=== PATIENT | female | born 1930 ===

== ENCOUNTER 2018-06-15 11:38 | Inpatient (IN) | payer MEDICARE, MEDICAID ==
--- NOTE | 2018-06-15 12:43 | C.PDOC ---
History Of Present Illness 88 y/o female is brought to ED from shelter by EMS after she was found unresponsive. Notes blood sugar was checked 3 times this morning and was given insulin. Upon arrival, blood sugar was found to be 25. Pt does not have history of diabetes. Otherwise, pt denies headache, dizziness, chest pain, shortness of breath, or any active physical complaints at this time. Time Seen by Provider: 06/15/18 12:17 Chief Complaint (Nursing): Medical Clearance History Per: Patient History/Exam Limitations: no limitations Recent travel outside of the [place]: No Additional History Per: EMS, [facility] Past Medical History Reviewed: Historical Data, Nursing Documentation, Vital Signs Vital Signs: Last Vital Signs Temp 97.7 F 06/15/18 11:52 Pulse 83 06/15/18 14:49 Resp 16 06/15/18 14:49 BP 146/60 06/15/18 14:49 Pulse Ox 92 L 06/15/18 15:30 - Medical History PMH: Anemia, Anxiety, HTN, Hyperlipidemia, Hypothyroidism Family History: States: Unknown Family Hx - Social History Hx Alcohol Use: No Hx Substance Use: No Review Of Systems Except As Marked, All Systems Reviewed And Found Negative. Constitutional: Negative for: Fever, Chills Cardiovascular: Negative for: Chest Pain, Palpitations Respiratory: Negative for: Shortness of Breath Gastrointestinal: Negative for: Nausea, Vomiting, Abdominal Pain Neurological: Negative for: Headache, Dizziness Physical Exam - Physical Exam Appears: Non-toxic, No Acute Distress Skin: Normal Color, Warm, Dry Head: Atraumatic, Normacephalic Eye(s): bilateral: Normal Inspection Oral Mucosa: Moist Neck: Normal ROM, Supple Cardiovascular: Rhythm Regular, No Murmur Respiratory: Normal Breath Sounds, No Rales, No Rhonchi, No Wheezing Gastrointestinal/Abdominal: Soft, No Tenderness Extremity: Normal ROM Neurological/Psych: Oriented x3, Normal Speech ED Course And Treatment - Laboratory Results Result Diagrams: 06/15/18 12:44 06/15/18 13:20 ECG: Interpreted By Me, Viewed By Me ECG Rhythm: Sinus Rhythm Rate From EC (bpm) O2 Sat by Pulse Oximetry: 92 (on RA) - Other Rad CXR X-Ray: Viewed By Me, Read By Radiologist Interpretation: FINDINGS: LUNGS: The lungs are well inflated and clear. PLEURA: No significant pleural effusion identified, no pneumothorax apparent. CARDIOVASCULAR: Normal. OSSEOUS STRUCTURES: No significant abnormalities. VISUALIZED UPPER ABDOMEN: Normal. OTHER FINDINGS: None. IMPRESSION: No active pulmonary disease. Progress Note: Urine: signs of UTI, Rocephin IV ordered, lactic acid negative, BP and HR are stable. Blood sugar decreased to 34 - D50 IV ordered. Case was d/ w pt's PMD who accepted patient to [facility] for observation. Medical Decision Making Medical Decision Making: Plan: Blood work Urinalysis EKG CXR Progress note: On re-eval, pt is resting comfortably, no acute distress. Pt denies any physical complaints at this time. Disposition - Disposition Disposition: HOSPITALIZED Disposition Time: 15:29 Condition: FAIR - Clinical Impression Clinical Impression: Hypoglycemia - PA / BOARD WRITER / Resident Statement MD/DO has reviewed & agrees with the documentation as recorded. - Scribe Statement The provider has reviewed the documentation as recorded by the Scribe Lukasz Marinelli All medical record entries made by the Scribe were at my direction and personally dictated by me. I have reviewed the chart and agree that the record accurately reflects my personal performance of the history, physical exam, medical decision making, and the department course for this patient. I have also personally directed, reviewed, and agree with the discharge instructions and disposition. Decision To Admit - Pt Status Changed To: Hospital Disposition Of: Observation - . Bed Request Type: Telemetry Admitting Physician: Andrew Marinelli Patient Diagnosis: Hypoglycemia
[2018-06-15 13:01] LABS: BASO # 0.1 K/uL (0.0-0.2); BASO % 0.7 % (0.0-2.0); EOS # 0.2 K/uL (0.0-0.7); EOS % 1.7 % (0.0-4.0); HEMOGLOBIN 11.6 g/dL (11.0-16.0); LYMPH # 1.6 K/uL (1.0-4.3); LYMPH % 16.4 % (20.0-40.0); MEAN CELL VOLUME 85.3 fL (81.0-99.0); MEAN CORPUSCULAR HEMOGLOBIN 28.1 pg (27.0-31.0); MEAN PLATELET VOLUME 8.4 fL (7.2-11.7); MONO # 0.5 K/uL (0.0-0.8); NEUT # 7.3 K/uL (1.8-7.0); NEUT % 76.2 % (50.0-75.0); RBC 4.11 Mil/uL (3.80-5.20); RED CELL DISTRIBUTION WIDTH 16.6 % (11.5-14.5); WHITE BLOOD COUNT 9.6 K/uL (4.8-10.8)
--- NOTE | 2018-06-15 13:19 | RAD ---
Date of service: 06/15/2018 HISTORY: found hypotensive, non diabetic COMPARISON: No prior. FINDINGS: LUNGS: The lungs are well inflated and clear. PLEURA: No significant pleural effusion identified, no pneumothorax apparent. CARDIOVASCULAR: Normal. OSSEOUS STRUCTURES: No significant abnormalities. VISUALIZED UPPER ABDOMEN: Normal. OTHER FINDINGS: None. IMPRESSION: No active pulmonary disease.
[2018-06-15 13:37] LABS: ALB/GLOB RATIO 1.1 (1.0-2.1)
[2018-06-15 13:49] LABS: CK-MB 0.68 ng/mL (0.0-3.38); TROPONIN I 0.025 ng/mL (0.00-0.120)
[2018-06-15 15:05] LABS: URINE BACTERIA RARE (<OCC); URINE BILIRUBIN NEGATIVE (NEGATIVE); URINE BLOOD NEGATIVE (NEGATIVE); URINE CLARITY Hazy (Clear); URINE COLOR Yellow (YELLOW); URINE GLUCOSE (UA) NORMAL (Normal); URINE LEUKOCYTE ESTERASE 3+ Leu/uL (Negative); URINE PROTEIN 2+ mg/dL (NEGATIVE); URINE UROBILINOGEN NORMAL mg/dL (0.2-1.0); WBC CLUMPS MOD /hpf
[2018-06-15] MEDS ORDERED: Dextrose 50% SYRINGE Inj (50 ml) ONE (16:49)
[2018-06-15] MEDS ORDERED: Dextrose 50% SYRINGE Inj (50 ml) IV STA ×2 (16:59→20:07)
[2018-06-15 17:06] LABS: VENOUS BLOOD GAS BASE EXCESS -11.9 mmol/L (0.0-2.0); VENOUS BLOOD GAS PCO2 26 mmHg (40-60); VENOUS BLOOD GAS PO2 45 mm/Hg (30-55)
--- NOTE | 2018-06-15 19:15 | CP.PCM.HP ---
Past Patient History - Past Social History Smoking Status: Never Smoked - CARDIAC Hx Hypertension: Yes - ENDOCRINE/METABOLIC Hx Hypothyroidism: Yes - HEMATOLOGICAL/ONCOLOGICAL Hx Anemia: Yes - GASTROINTESTINAL Hx Gastroesophageal Reflux: Yes - PSYCHIATRIC Hx Anxiety: Yes Hx Substance Use: No - SURGICAL HISTORY Hx Amputation: Yes (R AKA) - ANESTHESIA Hx Anesthesia: Yes Hx Anesthesia Reactions: No Meds Allergies/Adverse Reactions: Allergies Allergy/AdvReac Type Severity Reaction Status Date / Time No Known Allergies Allergy Verified 06/15/18 11:45 Results - Vital Signs Recent Vital Signs: Last Vital Signs Temp 98.2 F 06/15/18 18:55 Pulse 100 H 06/15/18 18:55 Resp 25 H 06/15/18 18:55 BP 166/54 H 06/15/18 18:55 Pulse Ox 100 06/15/18 18:55 - Labs Result Diagrams: 06/15/18 12:44 06/15/18 13:20 Labs: Laboratory Results - last 24 hr 06/15/18 06/15/18 06/15/18 11:43 12:44 13:01 WBC 9.6 RBC 4.11 Hgb 11.6 Hct 35.1 MCV 85.3 MCH 28.1 MCHC 33.0 RDW 16.6 H Plt Count 322 MPV 8.4 Neut % (Auto) 76.2 H Lymph % (Auto) 16.4 L [place] % (Auto) 5.0 Eos % (Auto) 1.7 Baso % (Auto) 0.7 Neut # (Auto) 7.3 H Lymph # (Auto) 1.6 [place] # (Auto) 0.5 Eos # (Auto) 0.2 Baso # (Auto) 0.1 pO2 VBG pH VBG pCO2 VBG HCO3 VBG Total CO2 VBG O2 Sat (Calc) VBG Base Excess VBG Potassium Glucose Lactate FiO2 Crit Value Called To Crit Value Called By Crit Value Read Back Blood Gas Notified Time Sodium Potassium Chloride Carbon Dioxide Anion Gap BUN Creatinine Est GFR ( Amer) Est GFR (Non-Af Amer) POC Glucose (mg/dL) 174 H 73 Random Glucose Calcium Total Bilirubin AST ALT Alkaline Phosphatase Total Creatine Kinase CK-MB (Mass) Troponin I Total Protein Albumin Globulin Albumin/Globulin Ratio Venous Blood Potassium Urine Color Urine Clarity Urine pH Ur Specific [place] Urine Protein Urine Glucose (UA) Urine Ketones Urine Blood Urine Nitrate Urine Bilirubin Urine Urobilinogen Ur Leukocyte Esterase Urine WBC (Auto) Urine RBC (Auto) Urine WBC Clumps (Auto) Urine Bacteria 06/15/18 06/15/18 06/15/18 13:20 14:16 14:38 WBC RBC Hgb Hct MCV MCH MCHC RDW Plt Count MPV Neut % (Auto) Lymph % (Auto) [place] % (Auto) Eos % (Auto) Baso % (Auto) Neut # (Auto) Lymph # (Auto) [place] # (Auto) Eos # (Auto) Baso # (Auto) pO2 VBG pH VBG pCO2 VBG HCO3 VBG Total CO2 VBG O2 Sat (Calc) VBG Base Excess VBG Potassium Glucose Lactate FiO2 Crit Value Called To Crit Value Called By Crit Value Read Back Blood Gas Notified Time Sodium 143 Potassium 5.1 Chloride 109 H Carbon Dioxide 21 L Anion Gap 18 BUN 36 H Creatinine 2.5 H Est GFR ( Amer) 22 Est GFR (Non-Af Amer) 18 POC Glucose (mg/dL) 63 L 69 Random Glucose 75 Calcium 9.0 Total Bilirubin 0.3 AST 30 ALT 21 Alkaline Phosphatase 82 Total Creatine Kinase 45 CK-MB (Mass) 0.68 Troponin I 0.0250 Total Protein 7.5 Albumin 4.0 Globulin 3.5 Albumin/Globulin Ratio 1.1 Venous Blood Potassium Urine Color Urine Clarity Urine pH Ur Specific [place] Urine Protein Urine Glucose (UA) Urine Ketones Urine Blood Urine Nitrate Urine Bilirubin Urine Urobilinogen Ur Leukocyte Esterase Urine WBC (Auto) Urine RBC (Auto) Urine WBC Clumps (Auto) Urine Bacteria 06/15/18 06/15/18 06/15/18 14:50 16:43 16:44 WBC RBC Hgb Hct MCV MCH MCHC RDW Plt Count MPV Neut % (Auto) Lymph % (Auto) [place] % (Auto) Eos % (Auto) Baso % (Auto) Neut # (Auto) Lymph # (Auto) [place] # (Auto) Eos # (Auto) Baso # (Auto) pO2 VBG pH VBG pCO2 VBG HCO3 VBG Total CO2 VBG O2 Sat (Calc) VBG Base Excess VBG Potassium Glucose Lactate FiO2 Crit Value Called To Crit Value Called By Crit Value Read Back Blood Gas Notified Time Sodium Potassium Chloride Carbon Dioxide Anion Gap BUN Creatinine Est GFR ( Amer) Est GFR (Non-Af Amer) POC Glucose (mg/dL) 32 L* 34 L* Random Glucose Calcium Total Bilirubin AST ALT Alkaline Phosphatase Total Creatine Kinase CK-MB (Mass) Troponin I Total Protein Albumin Globulin Albumin/Globulin Ratio Venous Blood Potassium Urine Color Yellow Urine Clarity Hazy Urine pH 6.0 Ur Specific [place] 1.011 Urine Protein 2+ H Urine Glucose (UA) Normal Urine Ketones Negative Urine Blood Negative Urine Nitrate Negative Urine Bilirubin Negative Urine Urobilinogen Normal Ur Leukocyte Esterase 3+ H Urine WBC (Auto) 952 H Urine RBC (Auto) 6 H Urine WBC Clumps (Auto) Mod H Urine Bacteria Rare 06/15/18 06/15/18 06/15/18 17:00 17:08 18:51 WBC RBC Hgb Hct MCV MCH MCHC RDW Plt Count MPV Neut % (Auto) Lymph % (Auto) [place] % (Auto) Eos % (Auto) Baso % (Auto) Neut # (Auto) Lymph # (Auto) [place] # (Auto) Eos # (Auto) Baso # (Auto) pO2 45 VBG pH 7.30 L VBG pCO2 26 L VBG HCO3 15.0 VBG Total CO2 13.6 L VBG O2 Sat (Calc) 87.6 H VBG Base Excess -11.9 L VBG Potassium 2.3 L* Glucose 75 Lactate 0.8 FiO2 24.0 Crit Value Called To Lina ramey Crit Value Called By Graham perkins logistics/shipper Crit Value Read Back Y Blood Gas Notified Time 1705 Sodium 150.0 H Potassium Chloride 126.0 H Carbon Dioxide Anion Gap BUN Creatinine Est GFR ( Amer) Est GFR (Non-Af Amer) POC Glucose (mg/dL) 109 43 L Random Glucose Calcium Total Bilirubin AST ALT Alkaline Phosphatase Total Creatine Kinase CK-MB (Mass) Troponin I Total Protein Albumin Globulin Albumin/Globulin Ratio Venous Blood Potassium 2.3 L* Urine Color Urine Clarity Urine pH Ur Specific [place] Urine Protein Urine Glucose (UA) Urine Ketones Urine Blood Urine Nitrate Urine Bilirubin Urine Urobilinogen Ur Leukocyte Esterase Urine WBC (Auto) Urine RBC (Auto) Urine WBC Clumps (Auto) Urine Bacteria 06/15/18 18:52 WBC RBC Hgb Hct MCV MCH MCHC RDW Plt Count MPV Neut % (Auto) Lymph % (Auto) [place] % (Auto) Eos % (Auto) Baso % (Auto) Neut # (Auto) Lymph # (Auto) [place] # (Auto) Eos # (Auto) Baso # (Auto) pO2 VBG pH VBG pCO2 VBG HCO3 VBG Total CO2 VBG O2 Sat (Calc) VBG Base Excess VBG Potassium Glucose Lactate FiO2 Crit Value Called To Crit Value Called By Crit Value Read Back Blood Gas Notified Time Sodium Potassium Chloride Carbon Dioxide Anion Gap BUN Creatinine Est GFR ( Amer) Est GFR (Non-Af Amer) POC Glucose (mg/dL) 46 L Random Glucose Calcium Total Bilirubin AST ALT Alkaline Phosphatase Total Creatine Kinase CK-MB (Mass) Troponin I Total Protein Albumin Globulin Albumin/Globulin Ratio Venous Blood Potassium Urine Color Urine Clarity Urine pH Ur Specific [place] Urine Protein Urine Glucose (UA) Urine Ketones Urine Blood Urine Nitrate Urine Bilirubin Urine Urobilinogen Ur Leukocyte Esterase Urine WBC (Auto) Urine RBC (Auto) Urine WBC Clumps (Auto) Urine Bacteria
--- NOTE | 2018-06-15 20:29 | PCM.PROC ---
Procedures Attestation:: I certify that I have explained the specified Operation(s) or Procedure(s), risks, benefits and reasonable alternatives to the Patient and/or other person responsible. The opportunity was given to ask questions and all questions answered - Central Line Placement Right Internal Jugular Triple Lumen Catheter Aseptic technique was employed throughout the procedure: Hand Hygiene done prior to procedure, Full sterile barriers (mask, hair cover, sterile gown, sterile gloves), Full body sterile drape, Chloraprep Antiseptic: 30 second prep for IJ or SC sites CVP Time Out Performed: Yes Pt. Placed on Pulse Ox Monitor: Yes Central Line Prep: Chlorhexidine-Alcohol Combination Local Anesthesia Used: Lidocaine 2% Amount of Anesthesia Used (mls): 3 Ultrasound Used for Placement: Yes Central Line Lumen Inserted: triple Central Line Length: 16 cm Post Procedure: Sutured in Place, Good Blood Return, All Ports Aspirated, Flushed, Capped, Sterile Dressing Applied Secured by: Securement device Post procedure dressing: Clear vapor permeable, Chlorhexidine disc (Biopatch) Post Procedure X-Ray: Yes Patient Tolerated Procedure: Well, No Complications Immediate Complications: None
--- NOTE | 2018-06-15 20:32 | CP.PCM.CON ---
<Wyatt Thompson - Last Filed: 06/15/18 20:29> History of Present Illness - History of Present Illness History of Present Illness: General Surgery Consult Note: [facility] Miranda 88[facility]. General surgery consulted for central line placement after multiple attempts done by nursing and medical attendings to obtain peripheral access failed. Review of Systems - Review of Systems Systems not reviewed;Unavailable: Acuity of Condition Past Patient History - Past Social History Smoking Status: Never Smoked - CARDIAC Hx Hypertension: Yes - ENDOCRINE/METABOLIC Hx Hypothyroidism: Yes - HEMATOLOGICAL/ONCOLOGICAL Hx Anemia: Yes - GASTROINTESTINAL Hx Gastroesophageal Reflux: Yes - PSYCHIATRIC Hx Anxiety: Yes Hx Substance Use: No - SURGICAL HISTORY Hx Amputation: Yes (R AKA) - ANESTHESIA Hx Anesthesia: Yes Hx Anesthesia Reactions: No Meds Allergies/Adverse Reactions: Allergies Allergy/AdvReac Type Severity Reaction Status Date / Time No Known Allergies Allergy Verified 06/15/18 11:45 - Medications Medications: Current Medications Amlodipine Besylate (Norvasc) 10 mg PO DAILY [facility] Gabapentin (Neurontin) 100 mg PO DAILY [facility] Hydralazine HCl (Apresoline) 50 mg PO Q8H [facility] Ceftriaxone Sodium 1 gm/ (Sodium Chloride) 100 mls @ 100 mls/hr IVPB DAILY [facility] PRN Reason: Protocol Levothyroxine Sodium (Synthroid) 50 mcg PO DAILY@0630 [facility] Metoprolol Tartrate (Lopressor) 50 mg PO BID [facility] Multivitamins (Hexavitamin) 1 tab PO DAILY [facility] Pantoprazole Sodium (Protonix Ec Tab) 40 mg PO DAILY [facility] Rosuvastatin Calcium (Crestor) 2.5 mg PO HS [facility] Physical Exam - Constitutional Appears: No Acute Distress - Head Exam Head Exam: NORMOCEPHALIC - Eye Exam Eye Exam: EOMI, Normal appearance - ENT Exam ENT Exam: Mucous Membranes Moist - Respiratory Exam Respiratory Exam: NORMAL BREATHING PATTERN - Cardiovascular Exam Cardiovascular Exam: +S1, +S2 - GI/Abdominal Exam GI & Abdominal Exam: Soft - Psychiatric Exam Psychiatric exam: Normal Mood - Skin Skin Exam: Dry, Normal Color, Warm Results - Vital Signs Recent Vital Signs: Last Vital Signs Temp 98.2 F 06/15/18 18:55 Pulse 100 H 06/15/18 18:55 Resp 25 H 06/15/18 18:55 BP 166/54 H 06/15/18 18:55 Pulse Ox 100 06/15/18 18:55 - Labs Result Diagrams: 06/15/18 12:44 06/15/18 13:20 Labs: Laboratory Results - last 24 hr 06/15/18 06/15/18 06/15/18 11:43 12:44 13:01 WBC 9.6 RBC 4.11 Hgb 11.6 Hct 35.1 MCV 85.3 MCH 28.1 MCHC 33.0 RDW 16.6 H Plt Count 322 MPV 8.4 Neut % (Auto) 76.2 H Lymph % (Auto) 16.4 L [place] % (Auto) 5.0 Eos % (Auto) 1.7 Baso % (Auto) 0.7 Neut # (Auto) 7.3 H Lymph # (Auto) 1.6 [place] # (Auto) 0.5 Eos # (Auto) 0.2 Baso # (Auto) 0.1 pO2 VBG pH VBG pCO2 VBG HCO3 VBG Total CO2 VBG O2 Sat (Calc) VBG Base Excess VBG Potassium Glucose Lactate FiO2 Crit Value Called To Crit Value Called By Crit Value Read Back Blood Gas Notified Time Sodium Potassium Chloride Carbon Dioxide Anion Gap BUN Creatinine Est GFR ( Amer) Est GFR (Non-Af Amer) POC Glucose (mg/dL) 174 H 73 Random Glucose Calcium Total Bilirubin AST ALT Alkaline Phosphatase Total Creatine Kinase CK-MB (Mass) Troponin I Total Protein Albumin Globulin Albumin/Globulin Ratio Venous Blood Potassium Urine Color Urine Clarity Urine pH Ur Specific [place] Urine Protein Urine Glucose (UA) Urine Ketones Urine Blood Urine Nitrate Urine Bilirubin Urine Urobilinogen Ur Leukocyte Esterase Urine WBC (Auto) Urine RBC (Auto) Urine WBC Clumps (Auto) Urine Bacteria 06/15/18 06/15/18 06/15/18 13:20 14:16 14:38 WBC RBC Hgb Hct MCV MCH MCHC RDW Plt Count MPV Neut % (Auto) Lymph % (Auto) [place] % (Auto) Eos % (Auto) Baso % (Auto) Neut # (Auto) Lymph # (Auto) [place] # (Auto) Eos # (Auto) Baso # (Auto) pO2 VBG pH VBG pCO2 VBG HCO3 VBG Total CO2 VBG O2 Sat (Calc) VBG Base Excess VBG Potassium Glucose Lactate FiO2 Crit Value Called To Crit Value Called By Crit Value Read Back Blood Gas Notified Time Sodium 143 Potassium 5.1 Chloride 109 H Carbon Dioxide 21 L Anion Gap 18 BUN 36 H Creatinine 2.5 H Est GFR ( Amer) 22 Est GFR (Non-Af Amer) 18 POC Glucose (mg/dL) 63 L 69 Random Glucose 75 Calcium 9.0 Total Bilirubin 0.3 AST 30 ALT 21 Alkaline Phosphatase 82 Total Creatine Kinase 45 CK-MB (Mass) 0.68 Troponin I 0.0250 Total Protein 7.5 Albumin 4.0 Globulin 3.5 Albumin/Globulin Ratio 1.1 Venous Blood Potassium Urine Color Urine Clarity Urine pH Ur Specific [place] Urine Protein Urine Glucose (UA) Urine Ketones Urine Blood Urine Nitrate Urine Bilirubin Urine Urobilinogen Ur Leukocyte Esterase Urine WBC (Auto) Urine RBC (Auto) Urine WBC Clumps (Auto) Urine Bacteria 06/15/18 06/15/18 06/15/18 14:50 16:43 16:44 WBC RBC Hgb Hct MCV MCH MCHC RDW Plt Count MPV Neut % (Auto) Lymph % (Auto) [place] % (Auto) Eos % (Auto) Baso % (Auto) Neut # (Auto) Lymph # (Auto) [place] # (Auto) Eos # (Auto) Baso # (Auto) pO2 VBG pH VBG pCO2 VBG HCO3 VBG Total CO2 VBG O2 Sat (Calc) VBG Base Excess VBG Potassium Glucose Lactate FiO2 Crit Value Called To Crit Value Called By Crit Value Read Back Blood Gas Notified Time Sodium Potassium Chloride Carbon Dioxide Anion Gap BUN Creatinine Est GFR ( Amer) Est GFR (Non-Af Amer) POC Glucose (mg/dL) 32 L* 34 L* Random Glucose Calcium Total Bilirubin AST ALT Alkaline Phosphatase Total Creatine Kinase CK-MB (Mass) Troponin I Total Protein Albumin Globulin Albumin/Globulin Ratio Venous Blood Potassium Urine Color Yellow Urine Clarity Hazy Urine pH 6.0 Ur Specific [place] 1.011 Urine Protein 2+ H Urine Glucose (UA) Normal Urine Ketones Negative Urine Blood Negative Urine Nitrate Negative Urine Bilirubin Negative Urine Urobilinogen Normal Ur Leukocyte Esterase 3+ H Urine WBC (Auto) 952 H Urine RBC (Auto) 6 H Urine WBC Clumps (Auto) Mod H Urine Bacteria Rare 06/15/18 06/15/18 06/15/18 17:00 17:08 18:51 WBC RBC Hgb Hct MCV MCH MCHC RDW Plt Count MPV Neut % (Auto) Lymph % (Auto) [place] % (Auto) Eos % (Auto) Baso % (Auto) Neut # (Auto) Lymph # (Auto) [place] # (Auto) Eos # (Auto) Baso # (Auto) pO2 45 VBG pH 7.30 L VBG pCO2 26 L VBG HCO3 15.0 VBG Total CO2 13.6 L VBG O2 Sat (Calc) 87.6 H VBG Base Excess -11.9 L VBG Potassium 2.3 L* Glucose 75 Lactate 0.8 FiO2 24.0 Crit Value Called To Lina ramey Crit Value Called By Graham perkins pipe chipper Crit Value Read Back Y Blood Gas Notified Time 1705 Sodium 150.0 H Potassium Chloride 126.0 H Carbon Dioxide Anion Gap BUN Creatinine Est GFR ( Amer) Est GFR (Non-Af Amer) POC Glucose (mg/dL) 109 43 L Random Glucose Calcium Total Bilirubin AST ALT Alkaline Phosphatase Total Creatine Kinase CK-MB (Mass) Troponin I Total Protein Albumin Globulin Albumin/Globulin Ratio Venous Blood Potassium 2.3 L* Urine Color Urine Clarity Urine pH Ur Specific [place] Urine Protein Urine Glucose (UA) Urine Ketones Urine Blood Urine Nitrate Urine Bilirubin Urine Urobilinogen Ur Leukocyte Esterase Urine WBC (Auto) Urine RBC (Auto) Urine WBC Clumps (Auto) Urine Bacteria 06/15/18 06/15/18 06/15/18 18:52 19:51 19:55 WBC RBC Hgb Hct MCV MCH MCHC RDW Plt Count MPV Neut % (Auto) Lymph % (Auto) [place] % (Auto) Eos % (Auto) Baso % (Auto) Neut # (Auto) Lymph # (Auto) [place] # (Auto) Eos # (Auto) Baso # (Auto) pO2 VBG pH VBG pCO2 VBG HCO3 VBG Total CO2 VBG O2 Sat (Calc) VBG Base Excess VBG Potassium Glucose Lactate FiO2 Crit Value Called To Crit Value Called By Crit Value Read Back Blood Gas Notified Time Sodium Potassium Chloride Carbon Dioxide Anion Gap BUN Creatinine Est GFR ( Amer) Est GFR (Non-Af Amer) POC Glucose (mg/dL) 46 L 46 L 38 L* Random Glucose Calcium Total Bilirubin AST ALT Alkaline Phosphatase Total Creatine Kinase CK-MB (Mass) Troponin I Total Protein Albumin Globulin Albumin/Globulin Ratio Venous Blood Potassium Urine Color Urine Clarity Urine pH Ur Specific [place] Urine Protein Urine Glucose (UA) Urine Ketones Urine Blood Urine Nitrate Urine Bilirubin Urine Urobilinogen Ur Leukocyte Esterase Urine WBC (Auto) Urine RBC (Auto) Urine WBC Clumps (Auto) Urine Bacteria Assessment & Plan - Assessment and Plan (Free Text) Assessment: 88F with hypoglycemia w/ multiple failed attempts at peripheral vascular access Plan: Insertion of right IJ TLC F/u CXR pt tolerated procedure well D/w Dr. Ruben Esquivle PGY3 <Arun Miranda B - Last Filed: 06/17/18 14:18> Meds - Medications Medications: Current Medications Amlodipine Besylate (Norvasc) 10 mg PO DAILY [facility] Last Admin: 06/17/18 09:30 Dose: 10 mg Gabapentin (Neurontin) 100 mg PO DAILY [facility] Last Admin: 06/17/18 09:30 Dose: 100 mg Hydralazine HCl (Apresoline) 50 mg PO Q8H [facility] Last Admin: 06/17/18 02:28 Dose: 50 mg Ceftriaxone Sodium 1 gm/ (Sodium Chloride) 100 mls @ 100 mls/hr IVPB DAILY [facility] PRN Reason: Protocol Last Admin: 06/17/18 09:36 Dose: 100 mls/hr Dextrose (Dextrose 10% In Water) 1,000 mls @ 50 mls/hr IV .Q20H [facility] Last Admin: 06/17/18 03:16 Dose: Not Given Levothyroxine Sodium (Synthroid) 50 mcg PO DAILY@0630 [facility] Last Admin: 06/17/18 05:29 Dose: 50 mcg Metoprolol Tartrate (Lopressor) 50 mg PO BID [facility] Last Admin: 06/17/18 09:30 Dose: 50 mg Multivitamins (Hexavitamin) 1 tab PO DAILY [facility] Last Admin: 06/17/18 09:30 Dose: 1 tab Pantoprazole Sodium (Protonix Ec Tab) 40 mg PO DAILY [facility] Last Admin: 06/17/18 09:30 Dose: 40 mg Rosuvastatin Calcium (Crestor) 2.5 mg PO HS [facility] Last Admin: 06/16/18 22:23 Dose: 2.5 mg Results - Vital Signs Recent Vital Signs: Last Vital Signs Temp 97.9 F 06/16/18 23:32 Pulse 76 06/17/18 12:11 Resp 20 06/16/18 23:32 BP 133/57 L 06/16/18 23:32 Pulse Ox 96 06/16/18 23:32 - Labs Result Diagrams: 06/15/18 12:44 06/17/18 07:57 Labs: Laboratory Results - last 24 hr 06/16/18 06/16/18 06/16/18 14:24 16:31 18:41 Sodium Potassium Chloride Carbon Dioxide Anion Gap BUN Creatinine Est GFR ( Amer) Est GFR (Non-Af Amer) POC Glucose (mg/dL) 95 110 162 H Random Glucose Hemoglobin A1c Calcium Magnesium Total Bilirubin AST ALT Alkaline Phosphatase Total Protein Albumin Globulin Albumin/Globulin Ratio Thyroxine (T4) TSH 3rd Generation Cortisol AM Sample 06/16/18 06/17/18 06/17/18 20:37 00:03 04:00 Sodium Potassium Chloride Carbon Dioxide Anion Gap BUN Creatinine Est GFR ( Amer) Est GFR (Non-Af Amer) POC Glucose (mg/dL) 124 H 112 H 134 H Random Glucose Hemoglobin A1c Calcium Magnesium Total Bilirubin AST ALT Alkaline Phosphatase Total Protein Albumin Globulin Albumin/Globulin Ratio Thyroxine (T4) TSH 3rd Generation Cortisol AM Sample 06/17/18 06/17/18 06/17/18 06:20 07:57 07:57 Sodium 129 L Potassium 5.0 Chloride 97 L Carbon Dioxide 23 Anion Gap 15 BUN 21 H Creatinine 2.0 H Est GFR ( Amer) 28 Est GFR (Non-Af Amer) 24 POC Glucose (mg/dL) 125 H Random Glucose 119 H Hemoglobin A1c 5.7 Calcium 8.3 L Magnesium 1.5 L Total Bilirubin 0.3 AST 50 H D ALT 38 Alkaline Phosphatase 85 Total Protein 6.5 Albumin 3.1 L D Globulin 3.4 Albumin/Globulin Ratio 0.9 L Thyroxine (T4) 7.79 TSH 3rd Generation 4.52 Cortisol AM Sample 06/17/18 06/17/18 06/17/18 07:57 08:10 11:28 Sodium Potassium Chloride Carbon Dioxide Anion Gap BUN Creatinine Est GFR ( Amer) Est GFR (Non-Af Amer) POC Glucose (mg/dL) 129 H 132 H Random Glucose Hemoglobin A1c Calcium Magnesium Total Bilirubin AST ALT Alkaline Phosphatase Total Protein Albumin Globulin Albumin/Globulin Ratio Thyroxine (T4) TSH 3rd Generation Cortisol AM Sample 5.2 Attending/Attestation - Attestation I have personally seen and examined this patient.: Yes I have fully participated in the care of the patient.: Yes I have reviewed all pertinent clinical information: Yes Notes (Text): Pt was seen and examined at bedside Agree with above note and assessment Pt from [place] with Hypoglycemia and unable to get IV access Labs and radiology reviewed Ass: Unable to get IV acces Plan : Central line placement Consent Plan d.w pt and ED attending in detail Risk and benefit explained in detail.
[2018-06-15] MEDS: Rosuvastatin Calcium 2.5 mg Tab PO SCH (22:33)
[2018-06-16] MEDS: Levothyroxine 50 MCG TAB PO SCH (05:41)
--- NOTE | 2018-06-16 08:30 | RAD ---
Date of service: 06/15/2018 HISTORY: s/p TLC insertion COMPARISON: Chest radiograph performed approximately 7 hours prior FINDINGS: LUNGS: No active pulmonary disease. PLEURA: No significant pleural effusion identified, no pneumothorax apparent. CARDIOVASCULAR: Atherosclerotic aortic calcifications. Cardiomediastinal silhouette unchanged. OSSEOUS STRUCTURES: Unchanged. VISUALIZED UPPER ABDOMEN: Normal. OTHER FINDINGS: Right internal jugular access central venous catheter with tip at the cavoatrial junction. IMPRESSION: Right internal jugular access central venous catheter in satisfactory position. No appreciable pneumothorax. No other significant interval change.
[2018-06-16] MEDS ORDERED: Pneumococcal 23-Valent Vaccine SC ONE (10:00)
--- NOTE | 2018-06-16 10:10 | CT ---
Date of service: 06/16/2018 PROCEDURE: CT HEAD WITHOUT CONTRAST. HISTORY: AMS COMPARISON: None available. TECHNIQUE: Axial computed tomography images were obtained through the head/brain without intravenous contrast. Radiation dose: Total exam DLP = 1138.5 mGy-cm. This CT exam was performed using one or more of the following dose reduction techniques: Automated exposure control, adjustment of the mA and/or kV according to patient size, and/or use of iterative reconstruction technique. FINDINGS: HEMORRHAGE: No intracranial hemorrhage. BRAIN: No mass effect or edema. Atrophy. Chronic microvascular ischemic changes. Right basal ganglia lacunar infarction. VENTRICLES: Unremarkable. No hydrocephalus. CALVARIUM: Unremarkable. PARANASAL SINUSES: Prior right sinus surgery. MASTOID AIR CELLS: Unremarkable as visualized. No inflammatory changes. OTHER FINDINGS: None. IMPRESSION: No acute intracranial pathology. Age-related changes.
[2018-06-16] MEDS: Multiple Vitamins Tab PO SCH (10:18)
[2018-06-16] MEDS: Pantoprazole 40 mg EC Tab PO SCH (10:18)
--- NOTE | 2018-06-16 16:09 | CP.PCM.PN ---
Subjective - Date & Time of Evaluation Date of Evaluation: 06/23/18 Time of Evaluation: 12:00 - Subjective Subjective: clinically same Objective - Vital Signs/Intake and Output Vital Signs (last 24 hours): Temp Pulse Resp BP Pulse Ox 98.3 F 85 20 129/66 98 06/16/18 07:43 06/16/18 11:58 06/16/18 07:43 06/16/18 11:58 06/16/18 07:43 Intake and Output: 06/16/18 06/16/18 06:59 18:59 Intake Total 700 Output Total 300 275 Balance 400 -275 - Medications Medications: Current Medications Amlodipine Besylate (Norvasc) 10 mg PO DAILY [facility] Last Admin: 06/16/18 10:19 Dose: 10 mg Gabapentin (Neurontin) 100 mg PO DAILY [facility] Last Admin: 06/16/18 10:18 Dose: 100 mg Hydralazine HCl (Apresoline) 50 mg PO Q8H [facility] Last Admin: 06/16/18 11:58 Dose: 50 mg Ceftriaxone Sodium 1 gm/ (Sodium Chloride) 100 mls @ 100 mls/hr IVPB DAILY [facility] PRN Reason: Protocol Last Admin: 06/16/18 10:20 Dose: 100 mls/hr Dextrose (Dextrose 10% In Water) 1,000 mls @ 50 mls/hr IV .Q20H [facility] Last Admin: 06/16/18 07:45 Dose: 50 mls/hr Levothyroxine Sodium (Synthroid) 50 mcg PO DAILY@0630 [facility] Last Admin: 06/16/18 05:41 Dose: 50 mcg Metoprolol Tartrate (Lopressor) 50 mg PO BID [facility] Last Admin: 06/16/18 10:19 Dose: 50 mg Multivitamins (Hexavitamin) 1 tab PO DAILY [facility] Last Admin: 06/16/18 10:18 Dose: 1 tab Pantoprazole Sodium (Protonix Ec Tab) 40 mg PO DAILY [facility] Last Admin: 06/16/18 10:18 Dose: 40 mg Rosuvastatin Calcium (Crestor) 2.5 mg PO HS [facility] Last Admin: 06/15/18 22:33 Dose: 2.5 mg - Labs Labs: 06/15/18 12:44 06/16/18 12:20 - Constitutional Appears: Well - Head Exam Head Exam: ATRAUMATIC, NORMAL INSPECTION, NORMOCEPHALIC - Eye Exam Eye Exam: EOMI, Normal appearance, PERRL Pupil Exam: NORMAL ACCOMODATION, PERRL - ENT Exam ENT Exam: Mucous Membranes Moist, Normal Exam - Neck Exam Neck Exam: Full ROM, Normal Inspection. absent: Lymphadenopathy - Respiratory Exam Respiratory Exam: Decreased Breath Sounds - Cardiovascular Exam Cardiovascular Exam: REGULAR RHYTHM, +S1, +S2 - GI/Abdominal Exam GI & Abdominal Exam: Soft, Diminished Bowel Sounds - Rectal Exam Rectal Exam: Deferred
--- NOTE | 2018-06-16 22:06 | CON ---
DATE: 06/16/2018 ENDOCRINOLOGY CONSULTATION LOCATION: Room 553. HISTORY OF PRESENT ILLNESS: This is an 88-year-old female with known history of hypertension and dyslipidemia with underlying hypothyroidism who was transferred here from the retirement after being found unresponsive by the nursing staff with supervening marked symptomatic hypoglycemia and glucose levels here with 25 mg/dL in the emergency room as noted. She has no known history of any diabetic condition or any intake of any oral hypoglycemic therapy as noted. She was apparently given insulin therapy in the retirement as per the initial ER note, but we will verify this information accordingly. PAST MEDICAL HISTORY: As mentioned above, history of hypertensive cardiovascular disease, dyslipidemia, history of hypothyroidism, history of generalized anxiety with psychotropic medication. There is also history of chronic anemia as noted with underlying diffuse osteoarthritis. FAMILY HISTORY: Positive for hypertension and heart disease. SOCIAL HISTORY: The patient has a supportive family. No known substance use. REVIEW OF SYSTEMS: Not possible at this time, but the chart has been reviewed in detail. PHYSICAL EXAMINATION: GENERAL: This is an average-built female, in no apparent distress. VITAL SIGNS: With a blood pressure of 140/80, pulse of 100 beats per minute and regular, temperature 98, respirations 20. Height is 5 feet 5 inches. Weight is 200 pounds. HEENT: Head is normocephalic. Eyes are anicteric with pink conjunctivae. Funduscopy not possible at this time. Ears, nose, and throat otherwise normal. NECK: Supple. Thyroid gland is normal in size. No carotid bruits or cervical adenopathy. CARDIOPULMONARY: Adynamic precordium. S1, S2 are rapid and regular. LUNGS: Clear to auscultation. ABDOMEN: Flat, soft with positive bowel sounds. EXTREMITIES: No peripheral edema. Pulses are +2 bilaterally. LABORATORY DATA: Her chemistries showed a BUN of 36, sodium 143, potassium 5.1, chloride 109, CO2 of 21, glucose 75, creatinine 2.5. Her glucose levels have ranged from 32 to 43 and 46 mg/dL. The latest glucose this morning dropped to 58 with a repeat level of 103 mg/dL. ASSESSMENT: This is an 88-year-old female with symptomatic hypoglycemia, presenting here with a brief bout of loss of consciousness with associated neuroglycopenic and hyperadrenergic manifestation for the same and the etiology of which has to be ascertaining at this time. There is no history of diabetic condition or any intake of diabetic medications for the same. We have to exclude also any underlying autoimmune endocrinopathy contributing to the hypoglycemia versus a nutritional factor also contributing to the same. It is quite unlikely that we are dealing with insulinoma or any insulin excess syndrome considering her advanced age at this time. PLAN OF MANAGEMENT: We will obtain a comprehensive hormonal profile to include a serum insulin and C-peptide level with a repeat thyroid study and will titrate her dose regimen accordingly. We will also include a serum cortisol of ACTH level as ordered. We will continue the D10W dextrose infusion as given, and we will observe her glycemic profile accordingly. We will follow. Karime Patton MD
[2018-06-16] MEDS: Rosuvastatin Calcium 2.5 mg Tab PO SCH (22:23)
--- NOTE | 2018-06-17 02:39 | CON ---
DATE: 06/16/2018 REFERRING PHYSICIAN: Dr. Nino Marinelli. REASON FOR CONSULTATION: Change in mental state. HISTORY: The patient is an 88 years old female brought from alf by ambulance, the patient was found unresponsive after was given insulin although the patient is nondiabetic, the patient blood sugar was 25. The patient is unable to give a detailed history, but patient denies headache, dizziness, photophobia, weakness, nausea, vomiting. The patient is currently admitted to the hospital, has no new complaints. PAST MEDICAL HISTORY: Hypertension, anxiety, hyperlipidemia, anemia and hypothyroidism. FAMILY HISTORY: Noncontributory. MEDICATIONS: Hydralazine, ceftriaxone, rosuvastatin, Dextrose, multivitamin, metoprolol, gabapentin, amlodipine. REVIEW OF SYSTEMS: As per H and P and ER notes, reviewed. PHYSICAL EXAMINATION: VITAL SIGNS: Blood pressure 146/60, pulse 85, respiration 16, temperature 97.7. NEUROLOGIC: Mental state, the patient is alert, awake, partially oriented to person and place, disoriented to time, (02:21) thought processing. Decreased attention span, short term memory, able to follow one-step commands, unable to follow two-step commands. Cranial nerves, pupils slightly asymmetrical on the right, 2 mm nonreactive status post bilateral cataract surgery. No facial palsy. No nystagmus, no double vision, no gaze preference, no field defect or threat. Motor, normal tone in upper and lower extremities. The patient is able to lift upper extremities against gravity and lift upper extremity against gravity on resistance, right below knee amputation. Deep tendon reflexes 1 in upper extremities, absent at the left knee and ankles with plantar flexion. Sensory, symmetrical, the patient withdraws her extremities symmetrically and upper extremity responds to noxious stimuli and left lower extremity. The patient is fully cooperative for neurologic examination. The patient able to comprehend finger to nose. IMAGING: The patient had a CAT scan of the brain. I have reviewed the CAT scan, CAT scan consist with severe cerebellar atrophy and generalized mild atrophy consistent with age and small old lacunar infract in the right subcortical area. LABORATORY DATA: White blood cells 9.6, hemoglobin 11.6, hematocrit 35.1, platelets 322. Sodium 143, potassium 5.1, chloride 109, CO2 21, BUN 36, creatinine 2.5 and glucose 75. IMPRESSION: Worsening mental state probably the patient has baseline dementia superimposed by encephalopathy secondary to metabolic etiology and most likely hypoglycemia. Neuro bass, no further workup recommended, probably this is patient's baseline. Neuro bass, I would not consider further workup. The patient's exam is relatively symmetrical and no focal deficit. I would sign off the case if needed, Dr. Chapin is covering the patient on Monday. Thank you for the consultation. Michael Phillips MD
[2018-06-17] MEDS: Levothyroxine 50 MCG TAB PO SCH (05:29)
[2018-06-17 08:29] LABS: ALB/GLOB RATIO 0.9 (1.0-2.1); ALBUMIN 3.1 g/dL (3.5-5.0); CALCIUM 8.3 mg/dl (8.6-10.4)
[2018-06-17 08:43] LABS: T4 7.79 ug/dL (5.5-11.0)
[2018-06-17] MEDS: Pantoprazole 40 mg EC Tab PO SCH (09:30)
[2018-06-17] MEDS: Multiple Vitamins Tab PO SCH (09:30)
--- NOTE | 2018-06-17 14:12 | CP.PCM.PN ---
Subjective - Date & Time of Evaluation Date of Evaluation: 06/17/18 Time of Evaluation: 12:00 - Subjective Subjective: clinically same Objective - Vital Signs/Intake and Output Vital Signs (last 24 hours): Temp Pulse Resp BP Pulse Ox 97.9 F 76 20 133/57 L 96 06/16/18 23:32 06/17/18 12:11 06/16/18 23:32 06/16/18 23:32 06/16/18 23:32 Intake and Output: 06/17/18 06/17/18 06:59 18:59 Intake Total 500 Output Total 301 Balance 199 - Medications Medications: Current Medications Amlodipine Besylate (Norvasc) 10 mg PO DAILY [facility] Last Admin: 06/17/18 09:30 Dose: 10 mg Gabapentin (Neurontin) 100 mg PO DAILY [facility] Last Admin: 06/17/18 09:30 Dose: 100 mg Hydralazine HCl (Apresoline) 50 mg PO Q8H [facility] Last Admin: 06/17/18 02:28 Dose: 50 mg Ceftriaxone Sodium 1 gm/ (Sodium Chloride) 100 mls @ 100 mls/hr IVPB DAILY [facility] PRN Reason: Protocol Last Admin: 06/17/18 09:36 Dose: 100 mls/hr Dextrose (Dextrose 10% In Water) 1,000 mls @ 50 mls/hr IV .Q20H [facility] Last Admin: 06/17/18 03:16 Dose: Not Given Levothyroxine Sodium (Synthroid) 50 mcg PO DAILY@0630 [facility] Last Admin: 06/17/18 05:29 Dose: 50 mcg Metoprolol Tartrate (Lopressor) 50 mg PO BID [facility] Last Admin: 06/17/18 09:30 Dose: 50 mg Multivitamins (Hexavitamin) 1 tab PO DAILY [facility] Last Admin: 06/17/18 09:30 Dose: 1 tab Pantoprazole Sodium (Protonix Ec Tab) 40 mg PO DAILY [facility] Last Admin: 06/17/18 09:30 Dose: 40 mg Rosuvastatin Calcium (Crestor) 2.5 mg PO HS [facility] Last Admin: 06/16/18 22:23 Dose: 2.5 mg - Labs Labs: 06/15/18 12:44 06/17/18 07:57 - Constitutional Appears: Well - Head Exam Head Exam: ATRAUMATIC, NORMAL INSPECTION, NORMOCEPHALIC - Eye Exam Eye Exam: EOMI, Normal appearance, PERRL Pupil Exam: NORMAL ACCOMODATION, PERRL - ENT Exam ENT Exam: Mucous Membranes Moist, Normal Exam - Neck Exam Neck Exam: Full ROM, Normal Inspection. absent: Lymphadenopathy - Respiratory Exam Respiratory Exam: Decreased Breath Sounds - Cardiovascular Exam Cardiovascular Exam: REGULAR RHYTHM, +S1, +S2 - GI/Abdominal Exam GI & Abdominal Exam: Soft, Diminished Bowel Sounds - Rectal Exam Rectal Exam: Deferred Assessment and Plan - Assessment and Plan (Free Text) Plan: Patient's blood sugar is better patient wants to go home to the rehab tomorrow TSH is 4.52 cortisol is 5.2 Patient is much better
--- NOTE | 2018-06-17 15:27 | PN ---
DATE: 06/17/2018 ENDO FOLLOWUP NOTE LOCATION: In room 553. SUBJECTIVE: This is an 88-year-old female, who was found unresponsive at the longterm with symptomatic hypoglycemia and associated neuroglycopenic and hyperadrenergic manifestation for the same. Her glycemic levels overnight have improved and the glucose values have ranged from 125 to 134 and 129 mg/dL. Her latest chemistries shows a BUN of 21, sodium 129, potassium 5, chloride 97, CO2 23, glucose 119, and creatinine 2. Her repeat thyroid studies shows a TSH of 4.52, with a T4 of 7.79. ASSESSMENT AND PLAN: So at this time, we will continue the levothyroxine given as 50 mcg once daily as ordered. We will also continue the fingerstick glucose testing with no need for any insulin coverage at this time. If hyperglycemic levels supervene, then we will start her on a very low-dose short-acting oral hypoglycemic therapy as indicated. At this time, no indications for now for any kind of oral hypoglycemic therapy. We will obtain serial chemistries and supplement accordingly as needed. We will follow. Karime Patton MD
[2018-06-17] MEDS: Rosuvastatin Calcium 2.5 mg Tab PO SCH (21:32)
[2018-06-17] MEDS: Dextrose 5%/0.45% NS 1,000 ML IV SCH (23:54)
[2018-06-18] MEDS: Levothyroxine 50 MCG TAB PO SCH (05:50)
[2018-06-18] MEDS: Pantoprazole 40 mg EC Tab PO SCH (09:09)
[2018-06-18] MEDS: Multiple Vitamins Tab PO SCH (09:09)
--- NOTE | 2018-06-18 15:24 | CP.PCM.PN ---
Subjective - Date & Time of Evaluation Date of Evaluation: 06/18/18 Time of Evaluation: 11:30 - Subjective Subjective: clinically same Objective - Vital Signs/Intake and Output Vital Signs (last 24 hours): Temp Pulse Resp BP Pulse Ox 98.3 F 84 18 130/59 L 97 06/18/18 08:20 06/18/18 08:20 06/18/18 08:20 06/18/18 08:20 06/18/18 08:20 Intake and Output: 06/18/18 06/18/18 06:59 18:59 Intake Total 550 Balance 550 - Medications Medications: Current Medications Amlodipine Besylate (Norvasc) 10 mg PO DAILY [facility] Last Admin: 06/18/18 09:09 Dose: 10 mg Gabapentin (Neurontin) 100 mg PO DAILY [facility] Last Admin: 06/18/18 09:09 Dose: 100 mg Hydralazine HCl (Apresoline) 50 mg PO Q8H [facility] Last Admin: 06/18/18 10:22 Dose: 50 mg Ceftriaxone Sodium 1 gm/ (Sodium Chloride) 100 mls @ 100 mls/hr IVPB DAILY [facility] PRN Reason: Protocol Last Admin: 06/18/18 10:22 Dose: 100 mls/hr Dextrose/Sodium Chloride (Dextrose 5%/0.45% Ns 1000 Ml) 1,000 mls @ 60 mls/hr IV .[id number] [facility] Last Admin: 06/17/18 23:54 Dose: 60 mls/hr Levothyroxine Sodium (Synthroid) 50 mcg PO DAILY@0630 [facility] Last Admin: 06/18/18 05:50 Dose: 50 mcg Metoprolol Tartrate (Lopressor) 50 mg PO BID [facility] Last Admin: 06/18/18 09:09 Dose: 50 mg Multivitamins (Hexavitamin) 1 tab PO DAILY [facility] Last Admin: 06/18/18 09:09 Dose: 1 tab Pantoprazole Sodium (Protonix Ec Tab) 40 mg PO DAILY [facility] Last Admin: 06/18/18 09:09 Dose: 40 mg Rosuvastatin Calcium (Crestor) 2.5 mg PO HS [facility] Last Admin: 06/17/18 21:32 Dose: Not Given - Labs Labs: 06/15/18 12:44 06/17/18 07:57 - Constitutional Appears: Well - Head Exam Head Exam: ATRAUMATIC, NORMAL INSPECTION, NORMOCEPHALIC - Eye Exam Eye Exam: EOMI, Normal appearance, PERRL Pupil Exam: NORMAL ACCOMODATION, PERRL - ENT Exam ENT Exam: Mucous Membranes Moist, Normal Exam - Neck Exam Neck Exam: Full ROM, Normal Inspection. absent: Lymphadenopathy - Respiratory Exam Respiratory Exam: Decreased Breath Sounds - Cardiovascular Exam Cardiovascular Exam: REGULAR RHYTHM, +S1, +S2 - GI/Abdominal Exam GI & Abdominal Exam: Soft, Diminished Bowel Sounds - Rectal Exam Rectal Exam: Deferred
--- NOTE | 2018-06-18 15:28 | CP.PCM.PN ---
Subjective - Date & Time of Evaluation Date of Evaluation: 06/18/18 Time of Evaluation: 15:28 - Subjective Subjective: PATIENT SEEN AND EXAMINED Objective - Vital Signs/Intake and Output Vital Signs (last 24 hours): Temp Pulse Resp BP Pulse Ox 98.3 F 84 18 130/59 L 97 06/18/18 08:20 06/18/18 08:20 06/18/18 08:20 06/18/18 08:20 06/18/18 08:20 Intake and Output: 06/18/18 06/18/18 06:59 18:59 Intake Total 550 Balance 550 - Medications Medications: Current Medications Amlodipine Besylate (Norvasc) 10 mg PO DAILY [facility] Last Admin: 06/18/18 09:09 Dose: 10 mg Gabapentin (Neurontin) 100 mg PO DAILY [facility] Last Admin: 06/18/18 09:09 Dose: 100 mg Hydralazine HCl (Apresoline) 50 mg PO Q8H [facility] Last Admin: 06/18/18 10:22 Dose: 50 mg Ceftriaxone Sodium 1 gm/ (Sodium Chloride) 100 mls @ 100 mls/hr IVPB DAILY [facility] PRN Reason: Protocol Last Admin: 06/18/18 10:22 Dose: 100 mls/hr Dextrose/Sodium Chloride (Dextrose 5%/0.45% Ns 1000 Ml) 1,000 mls @ 60 mls/hr IV .[id number] [facility] Last Admin: 06/17/18 23:54 Dose: 60 mls/hr Levothyroxine Sodium (Synthroid) 50 mcg PO DAILY@0630 [facility] Last Admin: 06/18/18 05:50 Dose: 50 mcg Metoprolol Tartrate (Lopressor) 50 mg PO BID [facility] Last Admin: 06/18/18 09:09 Dose: 50 mg Multivitamins (Hexavitamin) 1 tab PO DAILY [facility] Last Admin: 06/18/18 09:09 Dose: 1 tab Pantoprazole Sodium (Protonix Ec Tab) 40 mg PO DAILY [facility] Last Admin: 06/18/18 09:09 Dose: 40 mg Rosuvastatin Calcium (Crestor) 2.5 mg PO HS [facility] Last Admin: 06/17/18 21:32 Dose: Not Given - Labs Labs: 06/15/18 12:44 06/17/18 07:57 Assessment and Plan - Assessment and Plan (Free Text) Assessment: URINE CULT WAS POSITIVE----DR SANCHEZ CONSULT --HELP APPRECIATED HYPONATREMIA NOTED ---DR RIOS CONSULTED ---HELP APPRECIATED
[2018-06-18] MEDS: Dextrose 5%/0.45% NS 1,000 ML IV SCH (16:45)
[2018-06-18] MEDS: Rosuvastatin Calcium 2.5 mg Tab PO SCH (21:00)
--- NOTE | 2018-06-18 21:56 | PN ---
DATE: 06/18/2018 LOCATION: Room 553. SUBJECTIVE: This is an 88-year-old female with recent uncontrolled type 2 diabetes presenting here with symptomatic hypoglycemia and since then improved clinically and metabolically as noted thereof. She was taken off the D10 Dextrose infusion as ordered and switched over to D5 and half normal saline running at 60 mL/hour as ordered. However, her oral intake remains variable although improved in terms of her meal portions as noted. LABORATORY DATA: Her latest chemistry showed a BUN of 21, sodium 129, potassium 5, chloride 97, CO2 23, glucose 119, and creatinine 2. Her hemoglobin A1c is 5.7%. Her latest glucose values overnight have ranged 106 to 109 and 126 mg/dL. ASSESSMENT AND PLAN: So at this time, we will continue the Dextrose infusion as given and hold of the resumption of any kind of oral hypoglycemic therapy to obviate further hypoglycemia. We will observe her glycemic fluctuation over the next day or so prior to admission. We will follow. Karime Patton MD
[2018-06-19] MEDS: Levothyroxine 50 MCG TAB PO SCH (05:30)
--- NOTE | 2018-06-19 07:29 | CP.PCM.PN ---
Subjective - Date & Time of Evaluation Date of Evaluation: 06/19/18 Time of Evaluation: 08:00 - Subjective Subjective: PGY-2 Med Note- Dr. Vicky Marinelli's service Patient was seen and examined at bedside in the AM. Patient states she is in the hospital, she is able to tell me her name and that she was born on [birth year]. Patient was not able to state the year of her or the current year. Patient denies chest pain, shortness of breath, nausea vomiting, fever, chills , dysuria or hematuria. Objective - Vital Signs/Intake and Output Vital Signs (last 24 hours): Temp Pulse Resp BP Pulse Ox 99 F 83 20 133/57 L 96 06/18/18 22:00 06/18/18 22:00 06/18/18 22:00 06/18/18 22:00 06/18/18 22:00 Intake and Output: 06/19/18 06/19/18 06:59 18:59 Output Total 200 Balance -200 - Medications Medications: Current Medications Amlodipine Besylate (Norvasc) 10 mg PO DAILY [facility] Last Admin: 06/18/18 09:09 Dose: 10 mg Gabapentin (Neurontin) 100 mg PO DAILY [facility] Last Admin: 06/18/18 09:09 Dose: 100 mg Hydralazine HCl (Apresoline) 50 mg PO Q8H [facility] Last Admin: 06/19/18 02:37 Dose: 50 mg Ceftriaxone Sodium 1 gm/ (Sodium Chloride) 100 mls @ 100 mls/hr IVPB DAILY [facility] PRN Reason: Protocol Last Admin: 06/18/18 10:22 Dose: 100 mls/hr Dextrose/Sodium Chloride (Dextrose 5%/0.45% Ns 1000 Ml) 1,000 mls @ 60 mls/hr IV .[id number] [facility] Last Admin: 06/18/18 16:45 Dose: Not Given Levothyroxine Sodium (Synthroid) 50 mcg PO DAILY@0630 [facility] Last Admin: 06/19/18 05:30 Dose: 50 mcg Metoprolol Tartrate (Lopressor) 50 mg PO BID [facility] Last Admin: 06/18/18 17:19 Dose: 50 mg Multivitamins (Hexavitamin) 1 tab PO DAILY [facility] Last Admin: 06/18/18 09:09 Dose: 1 tab Pantoprazole Sodium (Protonix Ec Tab) 40 mg PO DAILY [facility] Last Admin: 06/18/18 09:09 Dose: 40 mg Rosuvastatin Calcium (Crestor) 2.5 mg PO HS [facility] Last Admin: 06/18/18 21:00 Dose: 2.5 mg - Labs Labs: 06/15/18 12:44 06/17/18 07:57 - Constitutional Appears: No Acute Distress, Unkempt, Confused - Head Exam Head Exam: ATRAUMATIC, NORMAL INSPECTION - Eye Exam Eye Exam: EOMI, Normal appearance - ENT Exam ENT Exam: Mucous Membranes Moist - Respiratory Exam Respiratory Exam: Clear to Ausculation Bilateral, NORMAL BREATHING PATTERN - Cardiovascular Exam Cardiovascular Exam: REGULAR RHYTHM, +S1, +S2 - GI/Abdominal Exam GI & Abdominal Exam: Soft, Normal Bowel Sounds. absent: Tenderness - Extremities Exam Extremities Exam: Normal Inspection - Neurological Exam Neurological Exam: Awake. absent: Oriented x3 (Oriented to person and place) - Psychiatric Exam Psychiatric exam: Normal Affect - Skin Skin Exam: Normal Color Assessment and Plan - Assessment and Plan (Free Text) Assessment: Hypoglycemia resolved - patient was admitted due to hypoglycemia after patient was given insulin at the [facility], however patient is not diabetic - Endocrinology Consult: Dr. Patton --> help appreciated - Hypoglycemia Protocol - hA1c 5.7 - Serum Insulin (06/17/18) 7.8 - f/u c peptide - Cortisol AM: 4.52 UTI - ID Consult: Dr. Jennings --> help appreciated - UA: 3+ Leukocyte esterase; WBC 952 - Urine culture: Coagulase Negative Staphylococcus * Ceftriaxone 1gm IV daily started by Dr. Azeb Marinelli 06/16/18 - will discontinue after speaking to Dr. Jennings * Sensitive to Tigecycline * f/u with Dr. Jennings - Blood culture negative - PICC line ordered - Spoke with patient's son Camron Drummond who stated to receive consent per Daughter in Law: Margo Cunningham #[phone] History of HTN - Continue home medications: * Hydralazine 50mg q8h * Metoprolol Tartrate 50mg bid * Norvasc 10mg Po daily History of HLD - Continue home medication: * Crestor 2.5mg HS History of Hypothyroid - Continue Home Medication: * Synthroid 50mcg daily - TSH 4.52; Thyroxine 7.79 Prophylaxis - heparin SC q8h - SCDs - Florastor 250mg bid - PT - Case Management Management per Dr. Darnell Marinelli
[2018-06-19] MEDS ORDERED: Glucagon Recombinant 1 mg Inj IM PRN (07:32)
[2018-06-19] MEDS ORDERED: Dextrose 50% SYRINGE Inj (50 ml) IV PRN (07:32)
[2018-06-19] MEDS: Multiple Vitamins Tab PO SCH (09:41)
[2018-06-19] MEDS: Dextrose 5%/0.45% NS 1,000 ML IV SCH (09:41)
[2018-06-19] MEDS: Pantoprazole 40 mg EC Tab PO SCH (09:41)
[2018-06-19 11:55] LABS: BASO % 0.5 % (0.0-2.0); EOS # 0.4 K/uL (0.0-0.7); EOS % 4.5 % (0.0-4.0); HEMOGLOBIN 9.9 g/dL (11.0-16.0); LYMPH # 2.7 K/uL (1.0-4.3); LYMPH % 30.1 % (20.0-40.0); MEAN CELL VOLUME 84.2 fL (81.0-99.0); MEAN CORPUSCULAR HEMOGLOBIN 27.5 pg (27.0-31.0); MEAN CORPUSCULAR HGB CONC 32.6 g/dL (33.0-37.0); MEAN PLATELET VOLUME 8.4 fL (7.2-11.7); MONO # 0.8 K/uL (0.0-0.8); MONO % 8.7 % (0.0-10.0); NEUT # 5.1 K/uL (1.8-7.0); NEUT % 56.2 % (50.0-75.0); RBC 3.6 Mil/uL (3.80-5.20); RED CELL DISTRIBUTION WIDTH 14.8 % (11.5-14.5)
--- NOTE | 2018-06-19 12:02 | CP.PCM.CON ---
History of Present Illness - History of Present Illness History of Present Illness: 88 y/o female [facility] after she was found unresponsive. referred for ID eval of UTI yolanda tobar - is jenkins sensitive - Medical History PMH: Anemia, Anxiety, HTN, Hyperlipidemia, Hypothyroidism right BKA Family History: States: Unknown Family Hx Review of Systems - Review of Systems Systems not reviewed;Unavailable: Altered Mental Status Past Patient History - Past Social History Smoking Status: Never Smoked - CARDIAC Hx Hypertension: Yes - ENDOCRINE/METABOLIC Hx Hypothyroidism: Yes - HEMATOLOGICAL/ONCOLOGICAL Hx Anemia: Yes - GASTROINTESTINAL Hx Gastroesophageal Reflux: Yes - PSYCHIATRIC Hx Anxiety: Yes Hx Substance Use: No - SURGICAL HISTORY Hx Amputation: Yes (R AKA) - ANESTHESIA Hx Anesthesia: Yes Hx Anesthesia Reactions: No Meds Allergies/Adverse Reactions: Allergies Allergy/AdvReac Type Severity Reaction Status Date / Time No Known Allergies Allergy Verified 06/15/18 11:45 - Medications Medications: Current Medications Amlodipine Besylate (Norvasc) 10 mg PO DAILY [facility] Last Admin: 06/19/18 09:41 Dose: 10 mg Dextrose (Dextrose 50% Inj) 0 ml IV STAT PRN; Protocol PRN Reason: Hypoglycemia Protocol Dextrose (Glutose 15) 0 gm PO ONCE PRN; Protocol PRN Reason: Hypoglycemia Protocol Gabapentin (Neurontin) 100 mg PO DAILY [facility] Last Admin: 06/19/18 09:41 Dose: 100 mg Glucagon (Glucagen Diagnostic Kit) 0 mg IM STAT PRN; Protocol PRN Reason: Hypoglycemia Protocol Heparin Sodium (Porcine) (Heparin) 5,000 units SC Q8 [facility] Hydralazine HCl (Apresoline) 50 mg PO Q8H [facility] Last Admin: 06/19/18 02:37 Dose: 50 mg Ceftriaxone Sodium 1 gm/ (Sodium Chloride) 100 mls @ 100 mls/hr IVPB DAILY [facility] PRN Reason: Protocol Last Admin: 06/19/18 10:16 Dose: Not Given Dextrose/Sodium Chloride (Dextrose 5%/0.45% Ns 1000 Ml) 1,000 mls @ 60 mls/hr IV .[id number] [facility] Last Admin: 06/19/18 09:41 Dose: Not Given Dextrose (Dextrose 5% In Water 1000 Ml) 1,000 mls @ 0 mls/hr IV .Q0M PRN; Protocol; Per Protocol PRN Reason: Hypoglycemia Protocol Levothyroxine Sodium (Synthroid) 50 mcg PO DAILY@0630 [facility] Last Admin: 06/19/18 05:30 Dose: 50 mcg Metoprolol Tartrate (Lopressor) 50 mg PO BID [facility] Last Admin: 06/19/18 09:41 Dose: 50 mg Multivitamins (Hexavitamin) 1 tab PO DAILY [facility] Last Admin: 06/19/18 09:41 Dose: 1 tab Pantoprazole Sodium (Protonix Ec Tab) 40 mg PO DAILY [facility] Last Admin: 06/19/18 09:41 Dose: 40 mg Rosuvastatin Calcium (Crestor) 2.5 mg PO HS [facility] Last Admin: 06/18/18 21:00 Dose: 2.5 mg Saccharomyces Boulardii (Florastor) 250 mg PO BID [facility] Physical Exam - Constitutional Appears: Chronically Ill - Head Exam Head Exam: ATRAUMATIC, NORMOCEPHALIC - Eye Exam Eye Exam: PERRL - ENT Exam ENT Exam: Mucous Membranes Dry - Neck Exam Neck exam: Negative for: Lymphadenopathy - Respiratory Exam Respiratory Exam: Decreased Breath Sounds - Cardiovascular Exam Cardiovascular Exam: REGULAR RHYTHM - GI/Abdominal Exam GI & Abdominal Exam: Diminished Bowel Sounds, Soft. absent: Tenderness - Rectal Exam Rectal Exam: Deferred - Exam Exam: NORMAL INSPECTION - Extremities Exam Extremities exam: Positive for: pedal pulses present. Negative for: calf tenderness, pedal edema, tenderness - Back Exam Back exam: absent: CVA tenderness (L), CVA tenderness (R) - Neurological Exam Neurological exam: Alert, Altered, CN II-XII Intact Results - Vital Signs Recent Vital Signs: Last Vital Signs Temp 99.1 F 06/19/18 08:00 Pulse 88 06/19/18 08:00 Resp 20 06/19/18 08:00 BP 148/55 L 06/19/18 08:00 Pulse Ox 99 06/19/18 08:00 - Labs Result Diagrams: 06/19/18 11:40 06/17/18 07:57 Labs: Laboratory Results - last 24 hr 06/17/18 06/18/18 06/18/18 07:57 17:19 21:01 WBC RBC Hgb Hct MCV MCH MCHC RDW Plt Count MPV Neut % (Auto) Lymph % (Auto) [place] % (Auto) Eos % (Auto) Baso % (Auto) Neut # (Auto) Lymph # (Auto) [place] # (Auto) Eos # (Auto) Baso # (Auto) POC Glucose (mg/dL) 130 H 113 H Insulin Level 7.8 06/19/18 06/19/18 06/19/18 06:23 11:12 11:40 WBC 9.0 RBC 3.60 L Hgb 9.9 L Hct 30.3 L MCV 84.2 MCH 27.5 MCHC 32.6 L RDW 14.8 H Plt Count 323 MPV 8.4 Neut % (Auto) 56.2 Lymph % (Auto) 30.1 [place] % (Auto) 8.7 Eos % (Auto) 4.5 H Baso % (Auto) 0.5 Neut # (Auto) 5.1 Lymph # (Auto) 2.7 [place] # (Auto) 0.8 Eos # (Auto) 0.4 Baso # (Auto) 0.0 POC Glucose (mg/dL) 86 122 H Insulin Level Assessment & Plan (1) Hypoglycemia Status: Acute - Assessment and Plan (Free Text) Assessment: jenkins sensitive UTI await blood cultures cont IV antibiotics as ordered by Dr Marinelli
[2018-06-19] MEDS: Saccharomyces Boulardi 250 mg Cap PO SCH ×2 (12:18→18:05)
[2018-06-19 12:29] LABS: ALBUMIN 3.3 g/dL (3.5-5.0); CALCIUM 8.7 mg/dl (8.6-10.4)
[2018-06-19 13:49] LABS: C-PEPTIDE 2.63 ng/mL (0.80-3.85)
--- NOTE | 2018-06-19 14:35 | RAD ---
Date of service: 06/19/2018 HISTORY: PICC Insertion COMPARISON: 06/15/2018. FINDINGS: LUNGS: Stable lower lobe infiltrates. PLEURA: Stable pleural effusions. CARDIOVASCULAR: PICC line in satisfactory position the tip is 5 cm above the cavoatrial junction. OSSEOUS STRUCTURES: No significant abnormalities. VISUALIZED UPPER ABDOMEN: Normal. OTHER FINDINGS: Removal of support apparatus since the prior study: Right IJ catheter. IMPRESSION: Satisfactory position of recently placed PICC line. No pneumothorax.
--- NOTE | 2018-06-19 17:00 | CP.PCM.PN ---
Subjective - Date & Time of Evaluation Date of Evaluation: 06/19/18 Time of Evaluation: 10:30 - Subjective Subjective: clinically same Objective - Vital Signs/Intake and Output Vital Signs (last 24 hours): Temp Pulse Resp BP Pulse Ox 98.1 F 75 20 135/60 97 06/19/18 15:00 06/19/18 15:00 06/19/18 15:00 06/19/18 15:00 06/19/18 15:00 Intake and Output: 06/19/18 06/19/18 06:59 18:59 Output Total 200 Balance -200 - Medications Medications: Current Medications Amlodipine Besylate (Norvasc) 10 mg PO DAILY [facility] Last Admin: 06/19/18 09:41 Dose: 10 mg Dextrose (Dextrose 50% Inj) 0 ml IV STAT PRN; Protocol PRN Reason: Hypoglycemia Protocol Dextrose (Glutose 15) 0 gm PO ONCE PRN; Protocol PRN Reason: Hypoglycemia Protocol Gabapentin (Neurontin) 100 mg PO DAILY [facility] Last Admin: 06/19/18 09:41 Dose: 100 mg Glucagon (Glucagen Diagnostic Kit) 0 mg IM STAT PRN; Protocol PRN Reason: Hypoglycemia Protocol Heparin Sodium (Porcine) (Heparin) 5,000 units SC Q8 [facility] Last Admin: 06/19/18 15:02 Dose: Not Given Hydralazine HCl (Apresoline) 50 mg PO Q8H [facility] Last Admin: 06/19/18 12:18 Dose: 50 mg Ceftriaxone Sodium 1 gm/ (Sodium Chloride) 100 mls @ 100 mls/hr IVPB DAILY [facility] PRN Reason: Protocol Last Admin: 06/19/18 10:16 Dose: Not Given Dextrose/Sodium Chloride (Dextrose 5%/0.45% Ns 1000 Ml) 1,000 mls @ 60 mls/hr IV .[id number] [facility] Last Admin: 06/19/18 09:41 Dose: Not Given Dextrose (Dextrose 5% In Water 1000 Ml) 1,000 mls @ 0 mls/hr IV .Q0M PRN; Protocol; Per Protocol PRN Reason: Hypoglycemia Protocol Levothyroxine Sodium (Synthroid) 50 mcg PO DAILY@0630 [facility] Last Admin: 06/19/18 05:30 Dose: 50 mcg Metoprolol Tartrate (Lopressor) 50 mg PO BID [facility] Last Admin: 06/19/18 09:41 Dose: 50 mg Multivitamins (Hexavitamin) 1 tab PO DAILY [facility] Last Admin: 06/19/18 09:41 Dose: 1 tab Pantoprazole Sodium (Protonix Ec Tab) 40 mg PO DAILY [facility] Last Admin: 06/19/18 09:41 Dose: 40 mg Rosuvastatin Calcium (Crestor) 2.5 mg PO HS [facility] Last Admin: 06/18/18 21:00 Dose: 2.5 mg Saccharomyces Boulardii (Florastor) 250 mg PO BID [facility] Last Admin: 06/19/18 12:18 Dose: 250 mg - Labs Labs: 06/19/18 11:40 06/19/18 11:40 - Constitutional Appears: Well - Head Exam Head Exam: ATRAUMATIC, NORMAL INSPECTION, NORMOCEPHALIC - Eye Exam Eye Exam: EOMI, Normal appearance, PERRL Pupil Exam: NORMAL ACCOMODATION, PERRL - ENT Exam ENT Exam: Mucous Membranes Moist, Normal Exam - Neck Exam Neck Exam: Full ROM, Normal Inspection. absent: Lymphadenopathy - Respiratory Exam Respiratory Exam: Decreased Breath Sounds - Cardiovascular Exam Cardiovascular Exam: REGULAR RHYTHM, +S1, +S2 - GI/Abdominal Exam GI & Abdominal Exam: Soft, Diminished Bowel Sounds - Rectal Exam Rectal Exam: Deferred
--- NOTE | 2018-06-19 19:34 | PN ---
DATE: 06/19/2018 ENDO FOLLOWUP NOTE LOCATION: In room 553. SUBJECTIVE: This is an 88-year-old female with recent uncontrolled type 2 diabetes, previously on oral hypoglycemic therapy prior to this admission and presenting here with symptomatic hypoglycemia and associated neuroglycopenic and hyperandrogenic manifestations reversed by D50 bolus injections and also D10W infusion as given. She has since then improved clinically and metabolically and her IV hydration has just been changed to D5 and half normal saline of 60 mL per hour as ordered. LABORATORY DATA: Her repeat chemistry showed a BUN of 21, sodium 129, potassium 5, chloride 97, CO2 of 23, glucose 119, and creatinine 2. Her repeat thyroid studies have ranged from 113 to 171 mg/dL. Her morning glucose today was 86 mg/dL. Her serum cortisol level is 5.2 with a low normal albumin values and we should explain also the low normal cortisol values from the very low cortisol binding globulins as expected. ASSESSMENT AND PLAN: So at this time, we will hold off the resumption of any kind of oral hypoglycemic therapy for now and observe the glycemic profile thereof and also continue the intravenous hydration as given. We will obtain serial chemistries and supplement accordingly as needed. We will follow. Karime Patton MD
[2018-06-19 20:29] LABS: OSMOLALITY,URINE 324 mosm/kg (300-1000)
[2018-06-19 20:33] LABS: URINE BACTERIA MOD (<OCC); URINE BILIRUBIN NEGATIVE (NEGATIVE); URINE BLOOD NEGATIVE (NEGATIVE); URINE CLARITY Hazy (Clear); URINE COLOR Yellow (YELLOW); URINE GLUCOSE (UA) NORMAL (Normal); URINE LEUKOCYTE ESTERASE 3+ Leu/uL (Negative); URINE PROTEIN 1+ mg/dL (NEGATIVE); URINE UROBILINOGEN NORMAL mg/dL (0.2-1.0)
[2018-06-19] MEDS: Rosuvastatin Calcium 2.5 mg Tab PO SCH (21:04)
[2018-06-20] MEDS: Dextrose 5%/0.45% NS 1,000 ML IV SCH (02:33)
[2018-06-20] MEDS: Levothyroxine 50 MCG TAB PO SCH (05:40)
[2018-06-20 07:19] LABS: BASO # 0.1 K/uL (0.0-0.2); BASO % 0.6 % (0.0-2.0); EOS # 0.5 K/uL (0.0-0.7); EOS % 6.4 % (0.0-4.0); HEMOGLOBIN 9.5 g/dL (11.0-16.0); LYMPH # 2.9 K/uL (1.0-4.3); LYMPH % 34.9 % (20.0-40.0); MEAN CELL VOLUME 84.5 fL (81.0-99.0); MEAN CORPUSCULAR HEMOGLOBIN 27.7 pg (27.0-31.0); MEAN CORPUSCULAR HGB CONC 32.8 g/dL (33.0-37.0); MEAN PLATELET VOLUME 8.9 fL (7.2-11.7); MONO # 0.7 K/uL (0.0-0.8); MONO % 8.9 % (0.0-10.0); NEUT # 4.2 K/uL (1.8-7.0); NEUT % 49.2 % (50.0-75.0); NRBC % 0.1 % (0.0-2.0); RBC 3.43 Mil/uL (3.80-5.20); RED CELL DISTRIBUTION WIDTH 14.8 % (11.5-14.5); WHITE BLOOD COUNT 8.4 K/uL (4.8-10.8)
[2018-06-20 07:28] LABS: INR 1.1
[2018-06-20 07:48] LABS: CALCIUM 8.4 mg/dl (8.6-10.4)
--- NOTE | 2018-06-20 09:42 | CP.PCM.CON ---
History of Present Illness - History of Present Illness History of Present Illness: 88 y/o female is brought to ED from long term by EMS after she was found unresponsive. Initially hypoglycemic, remains altered though. Found to have elevated creatinine , hyponatremia. coag stephany tobar - is jenkins sensitive - Medical History PMH: Anemia, Dementia, HTN, Hyperlipidemia, Hypothyroidism, right BKA Family History: States: Unknown Family Hx Social Hx- unknown Review of Systems - Review of Systems Systems not reviewed;Unavailable: Altered Mental Status Past Patient History - Past Medical History & Family History Past Family History: Reviewed and not pertinent - Past Social History Smoking Status: Never Smoked Home Situation {Lives}: [facility]entiary - CARDIAC Hx Hypertension: Yes - ENDOCRINE/METABOLIC Hx Hypothyroidism: Yes - HEMATOLOGICAL/ONCOLOGICAL Hx Anemia: Yes - GASTROINTESTINAL Hx Gastroesophageal Reflux: Yes - PSYCHIATRIC Hx Anxiety: Yes Hx Substance Use: No - SURGICAL HISTORY Hx Amputation: Yes (R AKA) - ANESTHESIA Hx Anesthesia: Yes Hx Anesthesia Reactions: No Meds Allergies/Adverse Reactions: Allergies Allergy/AdvReac Type Severity Reaction Status Date / Time No Known Allergies Allergy Verified 06/15/18 11:45 - Medications Medications: Current Medications Amlodipine Besylate (Norvasc) 10 mg PO DAILY [facility] Last Admin: 06/19/18 09:41 Dose: 10 mg Dextrose (Dextrose 50% Inj) 0 ml IV STAT PRN; Protocol PRN Reason: Hypoglycemia Protocol Dextrose (Glutose 15) 0 gm PO ONCE PRN; Protocol PRN Reason: Hypoglycemia Protocol Gabapentin (Neurontin) 100 mg PO DAILY [facility] Last Admin: 06/19/18 09:41 Dose: 100 mg Glucagon (Glucagen Diagnostic Kit) 0 mg IM STAT PRN; Protocol PRN Reason: Hypoglycemia Protocol Heparin Sodium (Porcine) (Heparin) 5,000 units SC Q8 [facility] Last Admin: 06/20/18 05:40 Dose: Not Given Hydralazine HCl (Apresoline) 50 mg PO Q8H [facility] Last Admin: 06/20/18 02:31 Dose: 50 mg Ceftriaxone Sodium 1 gm/ (Sodium Chloride) 100 mls @ 100 mls/hr IVPB DAILY [facility] PRN Reason: Protocol Last Admin: 06/19/18 10:16 Dose: Not Given Dextrose/Sodium Chloride (Dextrose 5%/0.45% Ns 1000 Ml) 1,000 mls @ 60 mls/hr IV .[id number] [facility] Last Admin: 06/20/18 02:33 Dose: Not Given Dextrose (Dextrose 5% In Water 1000 Ml) 1,000 mls @ 0 mls/hr IV .Q0M PRN; Protocol; Per Protocol PRN Reason: Hypoglycemia Protocol Levothyroxine Sodium (Synthroid) 50 mcg PO DAILY@0630 [facility] Last Admin: 06/20/18 05:40 Dose: Not Given Metoprolol Tartrate (Lopressor) 50 mg PO BID [facility] Last Admin: 06/19/18 18:05 Dose: 50 mg Multivitamins (Hexavitamin) 1 tab PO DAILY [facility] Last Admin: 06/19/18 09:41 Dose: 1 tab Pantoprazole Sodium (Protonix Ec Tab) 40 mg PO DAILY [facility] Last Admin: 06/19/18 09:41 Dose: 40 mg Rosuvastatin Calcium (Crestor) 2.5 mg PO HS [facility] Last Admin: 06/19/18 21:04 Dose: 2.5 mg Saccharomyces Boulardii (Florastor) 250 mg PO BID [facility] Last Admin: 06/19/18 18:05 Dose: 250 mg Physical Exam - Constitutional Appears: No Acute Distress, Confused, Chronically Ill - Head Exam Head Exam: ATRAUMATIC, NORMAL INSPECTION - Eye Exam Eye Exam: EOMI, Normal appearance - Neck Exam Neck exam: Positive for: Normal Inspection. Negative for: Tenderness - Respiratory Exam Respiratory Exam: Clear to Auscultation Bilateral, NORMAL BREATHING PATTERN - Cardiovascular Exam Cardiovascular Exam: REGULAR RHYTHM, +S1 - GI/Abdominal Exam GI & Abdominal Exam: Soft. absent: Tenderness - Back Exam Additional comments: right AKA - Neurological Exam Neurological exam: Altered - Psychiatric Exam Psychiatric exam: Anxious - Skin Skin Exam: Dry, Warm Results - Vital Signs Recent Vital Signs: Last Vital Signs Temp 98.3 F 06/20/18 08:05 Pulse 82 06/20/18 08:05 Resp 18 06/20/18 08:05 BP 133/56 L 06/20/18 08:05 Pulse Ox 96 06/20/18 08:05 - Labs Result Diagrams: 06/20/18 06:59 06/20/18 06:59 Labs: Laboratory Results - last 24 hr 06/17/18 06/19/18 06/19/18 07:57 11:12 11:40 WBC 9.0 RBC 3.60 L Hgb 9.9 L Hct 30.3 L MCV 84.2 MCH 27.5 MCHC 32.6 L RDW 14.8 H Plt Count 323 MPV 8.4 Neut % (Auto) 56.2 Lymph % (Auto) 30.1 [place] % (Auto) 8.7 Eos % (Auto) 4.5 H Baso % (Auto) 0.5 Neut # (Auto) 5.1 Lymph # (Auto) 2.7 [place] # (Auto) 0.8 Eos # (Auto) 0.4 Baso # (Auto) 0.0 PT INR APTT Sodium Potassium Chloride Carbon Dioxide Anion Gap BUN Creatinine Est GFR ( Amer) Est GFR (Non-Af Amer) POC Glucose (mg/dL) 122 H Random Glucose C-Peptide 2.63 Serum Osmolality Calcium Phosphorus Magnesium Total Bilirubin AST ALT Alkaline Phosphatase Total Protein Albumin Globulin Albumin/Globulin Ratio Procalcitonin Cortisol AM Sample Urine Color Urine Clarity Urine pH Ur Specific [place] Urine Protein Urine Glucose (UA) Urine Ketones Urine Blood Urine Nitrate Urine Bilirubin Urine Urobilinogen Ur Leukocyte Esterase Urine WBC (Auto) Urine RBC (Auto) Urine Bacteria Urine Osmolality Ur Random Sodium 06/19/18 06/19/18 06/19/18 11:40 14:12 14:12 WBC RBC Hgb Hct MCV MCH MCHC RDW Plt Count MPV Neut % (Auto) Lymph % (Auto) [place] % (Auto) Eos % (Auto) Baso % (Auto) Neut # (Auto) Lymph # (Auto) [place] # (Auto) Eos # (Auto) Baso # (Auto) PT INR APTT Sodium 124 L Potassium 4.3 Chloride 91 L Carbon Dioxide 23 Anion Gap 14 BUN 19 H Creatinine 2.1 H Est GFR ( Amer) 27 Est GFR (Non-Af Amer) 22 POC Glucose (mg/dL) Random Glucose 109 H C-Peptide Serum Osmolality 268 L Calcium 8.7 Phosphorus 4.0 Magnesium 1.6 Total Bilirubin 0.3 AST 37 H D ALT 25 Alkaline Phosphatase 86 Total Protein 6.6 Albumin 3.3 L Globulin 3.2 Albumin/Globulin Ratio 1.0 Procalcitonin 0.16 L Cortisol AM Sample Urine Color Urine Clarity Urine pH Ur Specific [place] Urine Protein Urine Glucose (UA) Urine Ketones Urine Blood Urine Nitrate Urine Bilirubin Urine Urobilinogen Ur Leukocyte Esterase Urine WBC (Auto) Urine RBC (Auto) Urine Bacteria Urine Osmolality Ur Random Sodium 06/19/18 06/19/18 06/19/18 16:38 19:54 19:58 WBC RBC Hgb Hct MCV MCH MCHC RDW Plt Count MPV Neut % (Auto) Lymph % (Auto) [place] % (Auto) Eos % (Auto) Baso % (Auto) Neut # (Auto) Lymph # (Auto) [place] # (Auto) Eos # (Auto) Baso # (Auto) PT INR APTT Sodium Potassium Chloride Carbon Dioxide Anion Gap BUN Creatinine Est GFR ( Amer) Est GFR (Non-Af Amer) POC Glucose (mg/dL) 126 H Random Glucose C-Peptide Serum Osmolality Calcium Phosphorus Magnesium Total Bilirubin AST ALT Alkaline Phosphatase Total Protein Albumin Globulin Albumin/Globulin Ratio Procalcitonin Cortisol AM Sample Urine Color Yellow Urine Clarity Hazy Urine pH 6.0 Ur Specific [place] 1.009 Urine Protein 1+ H Urine Glucose (UA) Normal Urine Ketones Negative Urine Blood Negative Urine Nitrate Negative Urine Bilirubin Negative Urine Urobilinogen Normal Ur Leukocyte Esterase 3+ H Urine WBC (Auto) 121 H Urine RBC (Auto) 2 Urine Bacteria Mod H Urine Osmolality 324 Ur Random Sodium 84 06/19/18 06/20/18 06/20/18 21:11 06:08 06:59 WBC RBC Hgb Hct MCV MCH MCHC RDW Plt Count MPV Neut % (Auto) Lymph % (Auto) [place] % (Auto) Eos % (Auto) Baso % (Auto) Neut # (Auto) Lymph # (Auto) [place] # (Auto) Eos # (Auto) Baso # (Auto) PT INR APTT Sodium Potassium Chloride Carbon Dioxide Anion Gap BUN Creatinine Est GFR ( Amer) Est GFR (Non-Af Amer) POC Glucose (mg/dL) 118 H 124 H Random Glucose C-Peptide Serum Osmolality Calcium Phosphorus Magnesium Total Bilirubin AST ALT Alkaline Phosphatase Total Protein Albumin Globulin Albumin/Globulin Ratio Procalcitonin Cortisol AM Sample 3.9 L Urine Color Urine Clarity Urine pH Ur Specific [place] Urine Protein Urine Glucose (UA) Urine Ketones Urine Blood Urine Nitrate Urine Bilirubin Urine Urobilinogen Ur Leukocyte Esterase Urine WBC (Auto) Urine RBC (Auto) Urine Bacteria Urine Osmolality Ur Random Sodium 06/20/18 06/20/18 06/20/18 06:59 06:59 06:59 WBC 8.4 RBC 3.43 L Hgb 9.5 L Hct 29.0 L MCV 84.5 MCH 27.7 MCHC 32.8 L RDW 14.8 H Plt Count 305 MPV 8.9 Neut % (Auto) 49.2 L Lymph % (Auto) 34.9 [place] % (Auto) 8.9 Eos % (Auto) 6.4 H Baso % (Auto) 0.6 Neut # (Auto) 4.2 Lymph # (Auto) 2.9 [place] # (Auto) 0.7 Eos # (Auto) 0.5 Baso # (Auto) 0.1 PT 12.0 INR 1.1 APTT 35 H Sodium 123 L Potassium 4.2 Chloride 91 L Carbon Dioxide 24 Anion Gap 12 BUN 18 H Creatinine 1.9 H Est GFR ( Amer) 30 Est GFR (Non-Af Amer) 25 POC Glucose (mg/dL) Random Glucose 106 H C-Peptide Serum Osmolality Calcium 8.4 L Phosphorus Magnesium Total Bilirubin AST ALT Alkaline Phosphatase Total Protein Albumin Globulin Albumin/Globulin Ratio Procalcitonin Cortisol AM Sample Urine Color Urine Clarity Urine pH Ur Specific [place] Urine Protein Urine Glucose (UA) Urine Ketones Urine Blood Urine Nitrate Urine Bilirubin Urine Urobilinogen Ur Leukocyte Esterase Urine WBC (Auto) Urine RBC (Auto) Urine Bacteria Urine Osmolality Ur Random Sodium Assessment & Plan (1) Hyponatremia Status: Acute (2) COLLEEN (acute kidney injury) Status: Acute (3) CKD (chronic kidney disease) stage 3, GFR 30-59 ml/min Status: Acute (4) Dilutional hyponatremia Status: Acute - Assessment and Plan (Free Text) Assessment: Patient on hyponatremic fluids for COLLEEN Now with worsening hyponatremia- likely induced by repletion with hypotonic solutions and inability to concentrate urine Plan: Changr IV to D5NS fluids serial chemistries Urine studies renal US
[2018-06-20] MEDS: Saccharomyces Boulardi 250 mg Cap PO SCH ×2 (10:04→17:23)
[2018-06-20] MEDS: Multiple Vitamins Tab PO SCH (10:05)
[2018-06-20] MEDS: Pantoprazole 40 mg EC Tab PO SCH (10:05)
[2018-06-20] MEDS: Dextrose 5%/0.9% NS 1,000 ML IV SCH ×3 (10:07→22:37)
--- NOTE | 2018-06-20 10:37 | CP.PCM.PN ---
Subjective - Date & Time of Evaluation Date of Evaluation: 06/20/18 Time of Evaluation: 10:00 - Subjective Subjective: Progress Note for Dr. Darnell Marinelli's Service Patient seen and examined at bedside. Patient reports she feels better. She was oriented to person, place but not time. Patient denies chest pain, shortness of breath, nausea vomiting, fever, chills, dysuria or hematuria. Objective - Vital Signs/Intake and Output Vital Signs (last 24 hours): Temp Pulse Resp BP Pulse Ox 98.3 F 82 18 133/56 L 96 06/20/18 08:05 06/20/18 08:05 06/20/18 08:05 06/20/18 08:05 06/20/18 08:05 Intake and Output: 06/20/18 06/20/18 06:59 18:59 Intake Total 960 Balance 960 - Medications Medications: Current Medications Amlodipine Besylate (Norvasc) 10 mg PO DAILY [facility] Last Admin: 06/20/18 10:05 Dose: 10 mg Dextrose (Dextrose 50% Inj) 0 ml IV STAT PRN; Protocol PRN Reason: Hypoglycemia Protocol Dextrose (Glutose 15) 0 gm PO ONCE PRN; Protocol PRN Reason: Hypoglycemia Protocol Gabapentin (Neurontin) 100 mg PO DAILY [facility] Last Admin: 06/20/18 10:05 Dose: 100 mg Glucagon (Glucagen Diagnostic Kit) 0 mg IM STAT PRN; Protocol PRN Reason: Hypoglycemia Protocol Heparin Sodium (Porcine) (Heparin) 5,000 units SC Q8 [facility] Last Admin: 06/20/18 05:40 Dose: Not Given Hydralazine HCl (Apresoline) 50 mg PO Q8H [facility] Last Admin: 06/20/18 02:31 Dose: 50 mg Ceftriaxone Sodium 1 gm/ (Sodium Chloride) 100 mls @ 100 mls/hr IVPB DAILY [facility] PRN Reason: Protocol Last Admin: 06/20/18 10:05 Dose: 100 mls/hr Dextrose (Dextrose 5% In Water 1000 Ml) 1,000 mls @ 0 mls/hr IV .Q0M PRN; Protocol; Per Protocol PRN Reason: Hypoglycemia Protocol Dextrose/Sodium Chloride (Dextrose 5%/0.9% Ns 1000 Ml) 1,000 mls @ 100 mls/hr IV .Q10H [facility] Last Admin: 09/19/18 10:07 Dose: 100 mls/hr Levothyroxine Sodium (Synthroid) 50 mcg PO DAILY@0630 [facility] Last Admin: 06/20/18 05:40 Dose: Not Given Metoprolol Tartrate (Lopressor) 50 mg PO BID [facility] Last Admin: 06/20/18 10:05 Dose: 50 mg Multivitamins (Hexavitamin) 1 tab PO DAILY [facility] Last Admin: 06/20/18 10:05 Dose: 1 tab Pantoprazole Sodium (Protonix Ec Tab) 40 mg PO DAILY [facility] Last Admin: 06/20/18 10:05 Dose: 40 mg Rosuvastatin Calcium (Crestor) 2.5 mg PO HS [facility] Last Admin: 06/19/18 21:04 Dose: 2.5 mg Saccharomyces Boulardii (Florastor) 250 mg PO BID [facility] Last Admin: 06/20/18 10:04 Dose: 250 mg - Labs Labs: 06/20/18 06:59 06/20/18 06:59 PT 12.0 SECONDS (9.7-12.2) 06/20/18 06:59 INR 1.1 06/20/18 06:59 APTT 35 SECONDS (21-34) H 06/20/18 06:59 - Additional Findings Additional findings: - Constitutional Appears: No Acute Distress, Unkempt, Confused - Head Exam Head Exam: ATRAUMATIC, NORMAL INSPECTION - Eye Exam Eye Exam: EOMI, Normal appearance - ENT Exam ENT Exam: Mucous Membranes Moist - Respiratory Exam Respiratory Exam: Clear to Ausculation Bilateral, NORMAL BREATHING PATTERN - Cardiovascular Exam Cardiovascular Exam: REGULAR RHYTHM, +S1, +S2 - GI/Abdominal Exam GI & Abdominal Exam: Soft, Normal Bowel Sounds. absent: Tenderness - Extremities Exam Extremities Exam: Normal Inspection - Neurological Exam Neurological Exam: Awake. absent: Oriented x3 (Oriented to person and place) - Psychiatric Exam Psychiatric exam: Normal Affect - Skin Skin Exam: Normal Color Assessment and Plan - Assessment and Plan (Free Text) Plan: Hyponatremia - Nephrology consult: Dr. De Oliveira --> help appreciated - Sodium: 143 --> 135 --> 129 --> 124 - Started on D5NS @ 100cc/hr - Urine osm 324 and serum osmolality 268; urine sodium - 84, f/u renal US Acute on Chronic Kidney Injury - Cr on admission 2.5 --> 2.1 - Started on D5NS @ 100cc/hr - Urine osm 324 and serum osmolality 268; urine sodium - 84, f/u renal US - Continue to Monitor UTI - ID Consult: Dr. Jennings --> help appreciated - UA: 3+ Leukocyte esterase; WBC 952 - Urine culture: Coagulase Negative Staphylococcus * Ceftriaxone 1gm IV daily started by Dr. Azeb Marinelli 06/16/18 - will discontinue after speaking to Dr. Jennings * Sensitive to Tigecycline * f/u with Dr. Jennings - Blood culture negative - PICC line ordered - Spoke with patient's son Camron Drummond who stated to receive consent per Daughter in Law: Margo Cunningham #[phone]; inserted 06/19/18 on right arm Hypoglycemia, resolved - patient was admitted due to hypoglycemia after patient was given insulin at the [facility], however patient is not diabetic - Endocrinology Consult: Dr. Patton --> help appreciated - Hypoglycemia Protocol - hA1c 5.7 - Serum Insulin (06/17/18) 7.8 - Cortisol AM: 4.52 - C peptide - WNL History of HTN - Continue home medications: * Hydralazine 50mg q8h * Metoprolol Tartrate 50mg bid * Norvasc 10mg Po daily History of HLD - Continue home medication: * Crestor 2.5mg HS History of Hypothyroid - Continue Home Medication: * Synthroid 50mcg daily - TSH 4.52; Thyroxine 7.79 Prophylaxis - heparin SC q8h - SCDs - Florastor 250mg bid - PT- - Case Management Management per Dr. Darnell Marinelli Disposition: Pending improvement of renal function, hyponatremia, and UTI, PT reccs for DEEPAK? ---Jocelyn Hairston DO, PGY2
[2018-06-20] MEDS ORDERED: Bisacodyl 5mg EC Tab PO ONE (10:55)
--- NOTE | 2018-06-20 11:04 | US ---
Date of service: 06/20/2018 PROCEDURE: Ultrasound of the Kidneys HISTORY: courtney COMPARISON: None available. TECHNIQUE: Sonogram of the kidneys. FINDINGS: RIGHT KIDNEY: Measures: 10.2 x 3.1 x 3.5 cm. No obstructing calculus, hydronephrosis, or renal cyst. LEFT KIDNEY: Measures: 7.7 x 4.5 x 4.2 cm. 7.7 x 4.5 x 4.2 cm. Moderate to severe hydronephrosis/hydroureter. No obstructing calculus identified. OTHER FINDINGS: None. IMPRESSION: Moderate to severe left hydronephrosis/hydroureter.
--- NOTE | 2018-06-20 14:29 | CARD ---
APPROVED REPORT Date of service: 06/15/2018 EKG Measurement Heart [id number] <Conclusion> Accelerated Junctional rhythm Possible Anterior infarct, age undetermined Abnormal ECG
[2018-06-20 16:50] LABS: ALB/GLOB RATIO 0.9 (1.0-2.1); ALBUMIN 3.2 g/dL (3.5-5.0); CALCIUM 8.1 mg/dl (8.6-10.4); URIC ACID 5.4 mg/dL (2.2-7.5)
--- NOTE | 2018-06-20 17:56 | CP.PCM.PN ---
Subjective - Date & Time of Evaluation Date of Evaluation: 06/20/18 Time of Evaluation: 09:00 - Subjective Subjective: 88 y/o female is brought to ED from [facility] by EMS awake confused Initially hypoglycemic, remains altered Objective - Vital Signs/Intake and Output Vital Signs (last 24 hours): Temp Pulse Resp BP Pulse Ox 97.8 F 73 20 122/54 L 96 06/20/18 15:00 06/20/18 15:00 06/20/18 15:00 06/20/18 15:00 06/20/18 15:00 Intake and Output: 06/20/18 06/20/18 06:59 18:59 Intake Total 960 600 Balance 960 600 - Medications Medications: Current Medications Amlodipine Besylate (Norvasc) 10 mg PO DAILY [facility] Last Admin: 06/20/18 10:05 Dose: 10 mg Dextrose (Dextrose 50% Inj) 0 ml IV STAT PRN; Protocol PRN Reason: Hypoglycemia Protocol Dextrose (Glutose 15) 0 gm PO ONCE PRN; Protocol PRN Reason: Hypoglycemia Protocol Docusate Sodium (Colace) 100 mg PO BID [facility] Last Admin: 06/20/18 17:22 Dose: 100 mg Gabapentin (Neurontin) 100 mg PO DAILY [facility] Last Admin: 06/20/18 10:05 Dose: 100 mg Glucagon (Glucagen Diagnostic Kit) 0 mg IM STAT PRN; Protocol PRN Reason: Hypoglycemia Protocol Heparin Sodium (Porcine) (Heparin) 5,000 units SC Q8 [facility] Last Admin: 06/20/18 13:16 Dose: 5,000 units Hydralazine HCl (Apresoline) 50 mg PO Q8H [facility] Last Admin: 06/20/18 11:39 Dose: 50 mg Ceftriaxone Sodium 1 gm/ (Sodium Chloride) 100 mls @ 100 mls/hr IVPB DAILY [facility] PRN Reason: Protocol Last Admin: 06/20/18 10:05 Dose: 100 mls/hr Dextrose (Dextrose 5% In Water 1000 Ml) 1,000 mls @ 0 mls/hr IV .Q0M PRN; Protocol; Per Protocol PRN Reason: Hypoglycemia Protocol Dextrose/Sodium Chloride (Dextrose 5%/0.9% Ns 1000 Ml) 1,000 mls @ 100 mls/hr IV .Q10H [facility] Last Admin: 06/20/18 10:07 Dose: 100 mls/hr Levothyroxine Sodium (Synthroid) 50 mcg PO DAILY@0630 [facility] Last Admin: 06/20/18 05:40 Dose: Not Given Metoprolol Tartrate (Lopressor) 50 mg PO BID [facility] Last Admin: 06/20/18 17:23 Dose: 50 mg Multivitamins (Hexavitamin) 1 tab PO DAILY [facility] Last Admin: 06/20/18 10:05 Dose: 1 tab Pantoprazole Sodium (Protonix Ec Tab) 40 mg PO DAILY [facility] Last Admin: 06/20/18 10:05 Dose: 40 mg Rosuvastatin Calcium (Crestor) 2.5 mg PO HS [facility] Last Admin: 06/19/18 21:04 Dose: 2.5 mg Saccharomyces Boulardii (Florastor) 250 mg PO BID [facility] Last Admin: 06/20/18 17:23 Dose: 250 mg - Labs Labs: 06/20/18 06:59 06/20/18 16:26 PT 12.0 SECONDS (9.7-12.2) 06/20/18 06:59 INR 1.1 06/20/18 06:59 APTT 35 SECONDS (21-34) H 06/20/18 06:59 - Constitutional Appears: Non-toxic, Chronically Ill - Head Exam Head Exam: NORMOCEPHALIC - Eye Exam Eye Exam: absent: Nystagmus - ENT Exam ENT Exam: Mucous Membranes Dry - Neck Exam Neck Exam: absent: Lymphadenopathy - Respiratory Exam Respiratory Exam: Decreased Breath Sounds - Cardiovascular Exam Cardiovascular Exam: REGULAR RHYTHM - GI/Abdominal Exam GI & Abdominal Exam: Soft - Rectal Exam Rectal Exam: Deferred - Exam Exam: NORMAL INSPECTION - Extremities Exam Additional comments: right BKA - Back Exam Back Exam: absent: CVA tenderness (L), CVA tenderness (R) Assessment and Plan (1) Hypoglycemia Status: Acute - Assessment and Plan (Free Text) Assessment: cont rx for UTI renal eval in progress cortisol level sent
[2018-06-20 19:13] LABS: SQUAMOUS EPITHIAL 1 /hpf (0-5); URINE BACTERIA FEW (<OCC); URINE BILIRUBIN NEGATIVE (NEGATIVE); URINE BLOOD NEGATIVE (NEGATIVE); URINE CLARITY Hazy (Clear); URINE COLOR Yellow (YELLOW); URINE GLUCOSE (UA) NORMAL (Normal); URINE LEUKOCYTE ESTERASE 3+ Leu/uL (Negative); URINE PROTEIN 1+ mg/dL (NEGATIVE); URINE UROBILINOGEN NORMAL mg/dL (0.2-1.0)
[2018-06-20 19:37] LABS: OSMOLALITY,URINE 319 mosm/kg (300-1000)
--- NOTE | 2018-06-20 20:30 | CP.PCM.PN ---
Subjective - Date & Time of Evaluation Date of Evaluation: 06/20/18 Time of Evaluation: 09:45 - Subjective Subjective: clinically same Objective - Vital Signs/Intake and Output Vital Signs (last 24 hours): Temp Pulse Resp BP Pulse Ox 97.8 F 71 20 121/60 96 06/20/18 15:00 06/20/18 20:05 06/20/18 15:00 06/20/18 20:05 06/20/18 15:00 Intake and Output: 06/20/18 06/21/18 18:59 06:59 Intake Total 600 Balance 600 - Medications Medications: Current Medications Amlodipine Besylate (Norvasc) 10 mg PO DAILY [facility] Last Admin: 06/20/18 10:05 Dose: 10 mg Dextrose (Dextrose 50% Inj) 0 ml IV STAT PRN; Protocol PRN Reason: Hypoglycemia Protocol Dextrose (Glutose 15) 0 gm PO ONCE PRN; Protocol PRN Reason: Hypoglycemia Protocol Docusate Sodium (Colace) 100 mg PO BID [facility] Last Admin: 06/20/18 17:22 Dose: 100 mg Gabapentin (Neurontin) 100 mg PO DAILY [facility] Last Admin: 06/20/18 10:05 Dose: 100 mg Glucagon (Glucagen Diagnostic Kit) 0 mg IM STAT PRN; Protocol PRN Reason: Hypoglycemia Protocol Heparin Sodium (Porcine) (Heparin) 5,000 units SC Q8 [facility] Last Admin: 06/20/18 13:16 Dose: 5,000 units Hydralazine HCl (Apresoline) 50 mg PO Q8H [facility] Last Admin: 06/20/18 20:10 Dose: 50 mg Ceftriaxone Sodium 1 gm/ (Sodium Chloride) 100 mls @ 100 mls/hr IVPB DAILY [facility] PRN Reason: Protocol Last Admin: 06/20/18 10:05 Dose: 100 mls/hr Dextrose (Dextrose 5% In Water 1000 Ml) 1,000 mls @ 0 mls/hr IV .Q0M PRN; Protocol; Per Protocol PRN Reason: Hypoglycemia Protocol Dextrose/Sodium Chloride (Dextrose 5%/0.9% Ns 1000 Ml) 1,000 mls @ 100 mls/hr IV .Q10H [facility] Last Admin: 06/20/18 10:07 Dose: 100 mls/hr Levothyroxine Sodium (Synthroid) 50 mcg PO DAILY@0630 [facility] Last Admin: 06/20/18 05:40 Dose: Not Given Metoprolol Tartrate (Lopressor) 50 mg PO BID [facility] Last Admin: 06/20/18 17:23 Dose: 50 mg Multivitamins (Hexavitamin) 1 tab PO DAILY [facility] Last Admin: 06/20/18 10:05 Dose: 1 tab Pantoprazole Sodium (Protonix Ec Tab) 40 mg PO DAILY [facility] Last Admin: 06/20/18 10:05 Dose: 40 mg Rosuvastatin Calcium (Crestor) 2.5 mg PO HS [facility] Last Admin: 06/19/18 21:04 Dose: 2.5 mg Saccharomyces Boulardii (Florastor) 250 mg PO BID [facility] Last Admin: 06/20/18 17:23 Dose: 250 mg - Labs Labs: 06/20/18 06:59 06/20/18 16:26 PT 12.0 SECONDS (9.7-12.2) 06/20/18 06:59 INR 1.1 06/20/18 06:59 APTT 35 SECONDS (21-34) H 06/20/18 06:59
--- NOTE | 2018-06-20 21:07 | PN ---
DATE: 06/20/2018 ENDO FOLLOWUP NOTE LOCATION: In room 553. SUBJECTIVE: This is an 88-year-old female with recent bouts of symptomatic hypoglycemia and is now improving clinically and metabolically as noted thereof. She has been taken off oral hypoglycemic therapy at this time and the latest glucose values have ranged from 114 to 124 mg/dL. Her latest chemistries shows a BUN of 18, protein 123, potassium 4.2, chloride 91, CO2 24, glucose 106, and creatinine 1.9. So at this time, we will continue the fingerstick glucose testing, but will not require any kind of oral hypoglycemic therapy nor basal insulin therapy at this time. We will obtain serial chemistries and supplement accordingly as needed. We will follow. Karime Patton MD
[2018-06-20] MEDS: Rosuvastatin Calcium 2.5 mg Tab PO SCH (21:30)
[2018-06-21] MEDS: Levothyroxine 50 MCG TAB PO SCH (05:42)
[2018-06-21] MEDS: Dextrose 5%/0.9% NS 1,000 ML IV SCH ×4 (06:00→21:31)
[2018-06-21 07:24] LABS: BASO # 0.1 K/uL (0.0-0.2); EOS # 0.5 K/uL (0.0-0.7); EOS % 6.4 % (0.0-4.0); HEMOGLOBIN 9.2 g/dL (11.0-16.0); LYMPH # 2.4 K/uL (1.0-4.3); LYMPH % 29.9 % (20.0-40.0); MEAN CELL VOLUME 85.7 fL (81.0-99.0); MEAN CORPUSCULAR HEMOGLOBIN 29.2 pg (27.0-31.0); MEAN CORPUSCULAR HGB CONC 34.1 g/dL (33.0-37.0); MEAN PLATELET VOLUME 9.4 fL (7.2-11.7); MONO # 0.6 K/uL (0.0-0.8); MONO % 7.5 % (0.0-10.0); NEUT # 4.4 K/uL (1.8-7.0); NEUT % 55.2 % (50.0-75.0); NRBC % 0.1 % (0.0-2.0); RBC 3.15 Mil/uL (3.80-5.20); RED CELL DISTRIBUTION WIDTH 15.1 % (11.5-14.5); WHITE BLOOD COUNT 7.9 K/uL (4.8-10.8)
[2018-06-21 07:33] LABS: ALB/GLOB RATIO 0.9 (1.0-2.1)
[2018-06-21] MEDS: Saccharomyces Boulardi 250 mg Cap PO SCH ×2 (09:18→17:12)
[2018-06-21] MEDS: Multiple Vitamins Tab PO SCH (09:18)
[2018-06-21] MEDS: Pantoprazole 40 mg EC Tab PO SCH (09:18)
--- NOTE | 2018-06-21 09:25 | CP.PCM.PN ---
Subjective - Date & Time of Evaluation Date of Evaluation: 06/21/18 Time of Evaluation: 09:23 - Subjective Subjective: Feels better; eating ok renal US- left hydro noted Na increasing with NS fluids Not likely SIADH Objective - Vital Signs/Intake and Output Vital Signs (last 24 hours): Temp Pulse Resp BP Pulse Ox 97.6 F 75 20 133/57 L 98 06/21/18 07:00 06/21/18 07:00 06/21/18 07:00 06/21/18 07:00 06/21/18 07:00 Intake and Output: 06/21/18 06/21/18 06:59 18:59 Intake Total 1040 Balance 1040 - Medications Medications: Current Medications Amlodipine Besylate (Norvasc) 10 mg PO DAILY [facility] Last Admin: 06/21/18 09:18 Dose: 10 mg Dextrose (Dextrose 50% Inj) 0 ml IV STAT PRN; Protocol PRN Reason: Hypoglycemia Protocol Dextrose (Glutose 15) 0 gm PO ONCE PRN; Protocol PRN Reason: Hypoglycemia Protocol Docusate Sodium (Colace) 100 mg PO BID [facility] Last Admin: 06/21/18 09:18 Dose: 100 mg Gabapentin (Neurontin) 100 mg PO DAILY [facility] Last Admin: 06/21/18 09:18 Dose: 100 mg Glucagon (Glucagen Diagnostic Kit) 0 mg IM STAT PRN; Protocol PRN Reason: Hypoglycemia Protocol Heparin Sodium (Porcine) (Heparin) 5,000 units SC Q8 [facility] Last Admin: 06/21/18 05:42 Dose: 5,000 units Hydralazine HCl (Apresoline) 50 mg PO Q8H [facility] Last Admin: 06/21/18 02:30 Dose: 50 mg Ceftriaxone Sodium 1 gm/ (Sodium Chloride) 100 mls @ 100 mls/hr IVPB DAILY [facility] PRN Reason: Protocol Last Admin: 06/21/18 09:18 Dose: 100 mls/hr Dextrose (Dextrose 5% In Water 1000 Ml) 1,000 mls @ 0 mls/hr IV .Q0M PRN; Protocol; Per Protocol PRN Reason: Hypoglycemia Protocol Dextrose/Sodium Chloride (Dextrose 5%/0.9% Ns 1000 Ml) 1,000 mls @ 100 mls/hr IV .Q10H [facility] Last Admin: 06/21/18 09:17 Dose: 100 mls/hr Levothyroxine Sodium (Synthroid) 50 mcg PO DAILY@0630 [facility] Last Admin: 06/21/18 05:42 Dose: 50 mcg Metoprolol Tartrate (Lopressor) 50 mg PO BID [facility] Last Admin: 06/21/18 09:18 Dose: 50 mg Multivitamins (Hexavitamin) 1 tab PO DAILY [facility] Last Admin: 06/21/18 09:18 Dose: 1 tab Pantoprazole Sodium (Protonix Ec Tab) 40 mg PO DAILY [facility] Last Admin: 06/21/18 09:18 Dose: 40 mg Rosuvastatin Calcium (Crestor) 2.5 mg PO HS [facility] Last Admin: 06/20/18 21:30 Dose: 2.5 mg Saccharomyces Boulardii (Florastor) 250 mg PO BID [facility] Last Admin: 06/21/18 09:18 Dose: 250 mg - Labs Labs: 06/21/18 06:58 06/21/18 06:58 PT 12.0 SECONDS (9.7-12.2) 06/20/18 06:59 INR 1.1 06/20/18 06:59 APTT 35 SECONDS (21-34) H 06/20/18 06:59 - Constitutional Appears: No Acute Distress, Chronically Ill - Head Exam Head Exam: ATRAUMATIC, NORMAL INSPECTION - Eye Exam Eye Exam: EOMI, Normal appearance - Neck Exam Neck Exam: Normal Inspection. absent: Tenderness - Respiratory Exam Respiratory Exam: Clear to Ausculation Bilateral, NORMAL BREATHING PATTERN - Cardiovascular Exam Cardiovascular Exam: REGULAR RHYTHM, +S1 - GI/Abdominal Exam GI & Abdominal Exam: Soft. absent: Tenderness - Extremities Exam Extremities Exam: Normal Inspection. absent: Tenderness - Neurological Exam Neurological Exam: Awake, CN II-XII Intact - Skin Skin Exam: Dry, Warm Assessment and Plan (1) Hyponatremia Status: Acute (2) COLLEEN (acute kidney injury) Status: Acute (3) CKD (chronic kidney disease) stage 3, GFR 30-59 ml/min Status: Acute (4) Dilutional hyponatremia Status: Acute - Assessment and Plan (Free Text) Plan: Continue same IV fluids with NS Recommend eval for left hydro
--- NOTE | 2018-06-21 09:55 | CP.PCM.PN ---
Subjective - Date & Time of Evaluation Date of Evaluation: 06/21/18 Time of Evaluation: 09:00 - Subjective Subjective: Progress Note for Dr. Darnell Marinelli's Service Patient seen and examined at bedside. Patient reports she feels better. She was oriented to person, place but not time. Patient denies chest pain, shortness of breath, nausea vomiting, fever, chills, dysuria or hematuria. Objective - Vital Signs/Intake and Output Vital Signs (last 24 hours): Temp Pulse Resp BP Pulse Ox 97.6 F 75 20 133/57 L 98 06/21/18 07:00 06/21/18 07:00 06/21/18 07:00 06/21/18 07:00 06/21/18 07:00 Intake and Output: 06/21/18 06/21/18 06:59 18:59 Intake Total 1040 Balance 1040 - Medications Medications: Current Medications Amlodipine Besylate (Norvasc) 10 mg PO DAILY [facility] Last Admin: 06/21/18 09:18 Dose: 10 mg Dextrose (Dextrose 50% Inj) 0 ml IV STAT PRN; Protocol PRN Reason: Hypoglycemia Protocol Dextrose (Glutose 15) 0 gm PO ONCE PRN; Protocol PRN Reason: Hypoglycemia Protocol Docusate Sodium (Colace) 100 mg PO BID [facility] Last Admin: 06/21/18 09:18 Dose: 100 mg Gabapentin (Neurontin) 100 mg PO DAILY [facility] Last Admin: 06/21/18 09:18 Dose: 100 mg Glucagon (Glucagen Diagnostic Kit) 0 mg IM STAT PRN; Protocol PRN Reason: Hypoglycemia Protocol Heparin Sodium (Porcine) (Heparin) 5,000 units SC Q8 [facility] Last Admin: 06/21/18 05:42 Dose: 5,000 units Hydralazine HCl (Apresoline) 50 mg PO Q8H [facility] Last Admin: 06/21/18 02:30 Dose: 50 mg Ceftriaxone Sodium 1 gm/ (Sodium Chloride) 100 mls @ 100 mls/hr IVPB DAILY [facility] PRN Reason: Protocol Last Admin: 06/21/18 09:18 Dose: 100 mls/hr Dextrose (Dextrose 5% In Water 1000 Ml) 1,000 mls @ 0 mls/hr IV .Q0M PRN; Protocol; Per Protocol PRN Reason: Hypoglycemia Protocol Dextrose/Sodium Chloride (Dextrose 5%/0.9% Ns 1000 Ml) 1,000 mls @ 100 mls/hr IV .Q10H [facility] Last Admin: 06/21/18 09:17 Dose: 100 mls/hr Levothyroxine Sodium (Synthroid) 50 mcg PO DAILY@0630 [facility] Last Admin: 06/21/18 05:42 Dose: 50 mcg Metoprolol Tartrate (Lopressor) 50 mg PO BID [facility] Last Admin: 06/21/18 09:18 Dose: 50 mg Multivitamins (Hexavitamin) 1 tab PO DAILY [facility] Last Admin: 06/21/18 09:18 Dose: 1 tab Pantoprazole Sodium (Protonix Ec Tab) 40 mg PO DAILY [facility] Last Admin: 06/21/18 09:18 Dose: 40 mg Rosuvastatin Calcium (Crestor) 2.5 mg PO HS [facility] Last Admin: 06/20/18 21:30 Dose: 2.5 mg Saccharomyces Boulardii (Florastor) 250 mg PO BID [facility] Last Admin: 06/21/18 09:18 Dose: 250 mg - Labs Labs: 06/21/18 06:58 06/21/18 06:58 PT 12.0 SECONDS (9.7-12.2) 06/20/18 06:59 INR 1.1 06/20/18 06:59 APTT 35 SECONDS (21-34) H 06/20/18 06:59 - Additional Findings Additional findings: - Constitutional Appears: No Acute Distress, Unkempt, Confused - Head Exam Head Exam: ATRAUMATIC, NORMAL INSPECTION - Eye Exam Eye Exam: EOMI, Normal appearance - ENT Exam ENT Exam: Mucous Membranes Moist - Respiratory Exam Respiratory Exam: Clear to Ausculation Bilateral, NORMAL BREATHING PATTERN - Cardiovascular Exam Cardiovascular Exam: REGULAR RHYTHM, +S1, +S2 - GI/Abdominal Exam GI & Abdominal Exam: Soft, Normal Bowel Sounds. absent: Tenderness - Extremities Exam Extremities Exam: Normal Inspection - Neurological Exam Neurological Exam: Awake. absent: Oriented x3 (Oriented to person and place) - Psychiatric Exam Psychiatric exam: Normal Affect - Skin Skin Exam: Normal Color Assessment and Plan - Assessment and Plan (Free Text) Plan: Left Sided Hydronephrosis --- Dr. Liya Eisenbreg consulted - Renal US: moderate to severe left hydronephrosis noted - f/u reccs Hyponatremia, resolving - Nephrology consult: Dr. De Oliveira --> help appreciated - Sodium: 143 --> 135 --> 129 --> 124--> improving 129 - Started on D5NS @ 100cc/hr - Urine osm 324 and serum osmolality 268; urine sodium - 84, Renal US: moderate to severe left hydronephrosis noted - Continue to Monitor Acute on Chronic Kidney Injury, improving - Cr on admission 2.5 --> 2.1 --> 1.8 - Started on D5NS @ 100cc/hr - Urine osm 324 and serum osmolality 268; urine sodium - 84, Renal US: moderate to severe left hydronephrosis noted - Continue to Monitor UTI - ID Consult: Dr. Jennings --> help appreciated - UA: 3+ Leukocyte esterase; WBC 952 - Blood culture negative - Urine culture: Coagulase Negative Staphylococcus * Ceftriaxone 1gm IV daily started by Dr. Azeb Marinelli 06/16/18 - okay to continue as per Dr. Jennings * Sensitive to Tigecycline * f/u repeat UC - PICC line ordered - Spoke with patient's son Camron Drummond who stated to receive consent per Daughter in Law: Margo Cunningham #[phone]; inserted 06/19/18 on right arm Hypoglycemia, resolved - patient was admitted due to hypoglycemia after patient was given insulin at the [facility], however patient is not diabetic - Endocrinology Consult: Dr. Patton --> help appreciated - Hypoglycemia Protocol - hA1c 5.7 - Serum Insulin (06/17/18) 7.8 - Cortisol AM: 4.52 - C peptide - WNL History of HTN - Continue home medications: * Hydralazine 50mg q8h * Metoprolol Tartrate 50mg bid * Norvasc 10mg PO daily History of HLD - Continue home medication: * Crestor 2.5mg HS History of Hypothyroid - Continue Home Medication: Synthroid 50mcg daily - TSH 4.52; Thyroxine 7.79 Prophylaxis - heparin SC q8h - SCDs - Florastor 250mg bid - PT- DEEPAK - Case Management Management per Dr. Darnell Marinelli Disposition: Pending Urology reccs for hydronephrosis. ---Jocelyn Hairston DO, PGY2
--- NOTE | 2018-06-21 16:08 | CP.PCM.PN ---
Subjective - Date & Time of Evaluation Date of Evaluation: 06/21/18 Time of Evaluation: 09:30 - Subjective Subjective: clinically same Objective - Vital Signs/Intake and Output Vital Signs (last 24 hours): Temp Pulse Resp BP Pulse Ox 97.6 F 75 20 133/57 L 98 06/21/18 07:00 06/21/18 07:00 06/21/18 07:00 06/21/18 07:00 06/21/18 07:00 Intake and Output: 06/21/18 06/21/18 06:59 18:59 Intake Total 1040 1100 Balance 1040 1100 - Medications Medications: Current Medications Amlodipine Besylate (Norvasc) 10 mg PO DAILY [facility] Last Admin: 06/21/18 09:18 Dose: 10 mg Dextrose (Dextrose 50% Inj) 0 ml IV STAT PRN; Protocol PRN Reason: Hypoglycemia Protocol Dextrose (Glutose 15) 0 gm PO ONCE PRN; Protocol PRN Reason: Hypoglycemia Protocol Docusate Sodium (Colace) 100 mg PO BID [facility] Last Admin: 06/21/18 09:18 Dose: 100 mg Gabapentin (Neurontin) 100 mg PO DAILY [facility] Last Admin: 06/21/18 09:18 Dose: 100 mg Glucagon (Glucagen Diagnostic Kit) 0 mg IM STAT PRN; Protocol PRN Reason: Hypoglycemia Protocol Heparin Sodium (Porcine) (Heparin) 5,000 units SC Q8 [facility] Last Admin: 06/21/18 13:14 Dose: 5,000 units Hydralazine HCl (Apresoline) 50 mg PO Q8H [facility] Last Admin: 06/21/18 12:14 Dose: 50 mg Dextrose (Dextrose 5% In Water 1000 Ml) 1,000 mls @ 0 mls/hr IV .Q0M PRN; Protocol; Per Protocol PRN Reason: Hypoglycemia Protocol Dextrose/Sodium Chloride (Dextrose 5%/0.9% Ns 1000 Ml) 1,000 mls @ 100 mls/hr IV .Q10H [facility] Last Admin: 06/21/18 09:17 Dose: 100 mls/hr Cefazolin Sodium/Dextrose (Ancef Iv 1 Gm Duplex) 1 gm in 50 mls @ 100 mls/hr IVPB Q8H [facility] PRN Reason: Protocol Levothyroxine Sodium (Synthroid) 50 mcg PO DAILY@0630 [facility] Last Admin: 06/21/18 05:42 Dose: 50 mcg Metoprolol Tartrate (Lopressor) 50 mg PO BID [facility] Last Admin: 06/21/18 09:18 Dose: 50 mg Multivitamins (Hexavitamin) 1 tab PO DAILY [facility] Last Admin: 06/21/18 09:18 Dose: 1 tab Pantoprazole Sodium (Protonix Ec Tab) 40 mg PO DAILY [facility] Last Admin: 06/21/18 09:18 Dose: 40 mg Rosuvastatin Calcium (Crestor) 2.5 mg PO [facility] Last Admin: 06/20/18 21:30 Dose: 2.5 mg Saccharomyces Boulardii (Florastor) 250 mg PO BID [facility] Last Admin: 06/21/18 09:18 Dose: 250 mg - Labs Labs: 06/21/18 06:58 06/21/18 06:58 PT 12.0 SECONDS (9.7-12.2) 06/20/18 06:59 INR 1.1 06/20/18 06:59 APTT 35 SECONDS (21-34) H 06/20/18 06:59
[2018-06-21] MEDS: ceFAZolin IV 1 gm in Dextrose 1 GM/50 ML BAG IVPB SCH (17:17)
--- NOTE | 2018-06-21 18:29 | CT ---
PROCEDURE: CT Abdomen and Pelvis without Oral or IV contrast. HISTORY: left hydronephrosis, concern for stones, masses COMPARISON: Renal ultrasound performed 06/20/18 TECHNIQUE: Contiguous axial images of the abdomen and pelvis. No oral or IV contrast administered. Coronal and Sagittal reformats generated and reviewed. Radiation dose: Total exam DLP = 943.24 mGy-cm. This CT exam was performed using one or more of the following dose reduction techniques: Automated exposure control, adjustment of the mA and/or kV according to patient size, and/or use of iterative reconstruction technique. FINDINGS: There is limited evaluation of the solid organs without the administration of IV contrast. LOWER THORAX: Small to moderate bilateral pleural effusions and compressive consolidations. LIVER: Unremarkable. GALLBLADDER AND BILE DUCTS: The gallbladder is not well visualized, likely decompressed. No evidence of surgical clips. PANCREAS: Unremarkable unenhanced appearance. SPLEEN: Unremarkable unenhanced appearance. ADRENALS: Unremarkable unenhanced appearance. KIDNEYS AND URETERS: Severe left-sided hydronephrosis with atrophy of the renal parenchyma. Extensive left-sided hydroureter to the level of the distal ureter (series 2, image 66). There is no evidence of renal calculus. Appearance worrisome for stricture or neoplasm. No right-sided hydronephrosis. BLADDER: The urinary bladder appears unremarkable. REPRODUCTIVE: The uterus resected or atrophic. Large left pelvic cystic lesion measures approximately 4.9 x 4.7 cm, likely ovarian in etiology. APPENDIX: Probable appendicolith measuring approximately 11 mm. No evidence of dilated appendix or periappendiceal inflammatory changes to suggest appendicitis. BOWEL: The stomach is nondistended. Lack of oral contrast limits evaluation for bowel pathology. The bowel loops appear within normal limits of caliber without evidence of intestinal obstruction. PERITONEUM: No significant free fluid. No definite free air. LYMPH NODES: Sub cm mesenteric adenopathy, nonspecific. VASCULATURE: Atherosclerotic calcifications. No aortic aneurysm. BONES: Osseous demineralization. Degenerative changes. OTHER FINDINGS: None. IMPRESSION: Severe left-sided hydronephrosis with atrophy of the renal parenchyma. Extensive left-sided hydroureter to the level of the distal ureter (series 2, image 66). There is no evidence of renal calculus. Appearance worrisome for stricture or neoplasm. Large left pelvic cystic lesion measures approximately 4.9 x 4.7 cm, likely ovarian in etiology. Pelvic ultrasound suggested. Small to moderate bilateral pleural effusions and compressive consolidations.
--- NOTE | 2018-06-21 19:38 | CP.PCM.PN ---
Subjective - Date & Time of Evaluation Date of Evaluation: 06/21/18 Time of Evaluation: 08:00 - Subjective Subjective: afeb on IV antibiotics discussed on rounds with Dr Obrien Objective - Vital Signs/Intake and Output Vital Signs (last 24 hours): Temp Pulse Resp BP Pulse Ox 98.4 F 78 20 122/65 95 06/21/18 15:00 06/21/18 15:00 06/21/18 15:00 06/21/18 15:00 06/21/18 15:00 Intake and Output: 06/21/18 06/22/18 18:59 06:59 Intake Total 1100 Balance 1100 - Medications Medications: Current Medications Amlodipine Besylate (Norvasc) 10 mg PO DAILY [facility] Last Admin: 06/21/18 09:18 Dose: 10 mg Dextrose (Dextrose 50% Inj) 0 ml IV STAT PRN; Protocol PRN Reason: Hypoglycemia Protocol Dextrose (Glutose 15) 0 gm PO ONCE PRN; Protocol PRN Reason: Hypoglycemia Protocol Docusate Sodium (Colace) 100 mg PO BID [facility] Last Admin: 06/21/18 17:12 Dose: 100 mg Gabapentin (Neurontin) 100 mg PO DAILY [facility] Last Admin: 06/21/18 09:18 Dose: 100 mg Glucagon (Glucagen Diagnostic Kit) 0 mg IM STAT PRN; Protocol PRN Reason: Hypoglycemia Protocol Heparin Sodium (Porcine) (Heparin) 5,000 units SC Q8 [facility] Last Admin: 06/21/18 13:14 Dose: 5,000 units Hydralazine HCl (Apresoline) 50 mg PO Q8H [facility] Last Admin: 06/21/18 12:14 Dose: 50 mg Dextrose (Dextrose 5% In Water 1000 Ml) 1,000 mls @ 0 mls/hr IV .Q0M PRN; Protocol; Per Protocol PRN Reason: Hypoglycemia Protocol Dextrose/Sodium Chloride (Dextrose 5%/0.9% Ns 1000 Ml) 1,000 mls @ 100 mls/hr IV .Q10H [facility] Last Admin: 06/21/18 17:18 Dose: Not Given Cefazolin Sodium/Dextrose (Ancef Iv 1 Gm Duplex) 1 gm in 50 mls @ 100 mls/hr IVPB Q8H [facility] PRN Reason: Protocol Last Admin: 06/21/18 17:17 Dose: 100 mls/hr Levothyroxine Sodium (Synthroid) 50 mcg PO DAILY@0630 [facility] Last Admin: 06/21/18 05:42 Dose: 50 mcg Metoprolol Tartrate (Lopressor) 50 mg PO BID [facility] Last Admin: 06/21/18 17:12 Dose: 50 mg Multivitamins (Hexavitamin) 1 tab PO DAILY [facility] Last Admin: 06/21/18 09:18 Dose: 1 tab Pantoprazole Sodium (Protonix Ec Tab) 40 mg PO DAILY [facility] Last Admin: 06/21/18 09:18 Dose: 40 mg Rosuvastatin Calcium (Crestor) 2.5 mg PO [facility] Last Admin: 06/20/18 21:30 Dose: 2.5 mg Saccharomyces Boulardii (Florastor) 250 mg PO BID [facility] Last Admin: 06/21/18 17:12 Dose: 250 mg - Labs Labs: 06/21/18 06:58 06/21/18 06:58 PT 12.0 SECONDS (9.7-12.2) 06/20/18 06:59 INR 1.1 06/20/18 06:59 APTT 35 SECONDS (21-34) H 06/20/18 06:59 - Constitutional Appears: Non-toxic, Chronically Ill - Head Exam Head Exam: NORMOCEPHALIC - Eye Exam Eye Exam: PERRL - ENT Exam ENT Exam: Mucous Membranes Dry - Neck Exam Neck Exam: absent: Lymphadenopathy - Respiratory Exam Respiratory Exam: Decreased Breath Sounds - Cardiovascular Exam Cardiovascular Exam: REGULAR RHYTHM - GI/Abdominal Exam GI & Abdominal Exam: Distended - Rectal Exam Rectal Exam: Deferred - Exam Exam: NORMAL INSPECTION - Extremities Exam Extremities Exam: absent: Pedal Edema Assessment and Plan (1) Hypoglycemia Status: Acute - Assessment and Plan (Free Text) Assessment: cont iv ancef for UTI
[2018-06-21] MEDS: Rosuvastatin Calcium 2.5 mg Tab PO SCH (21:32)
--- NOTE | 2018-06-22 01:03 | PN ---
DATE: 06/21/2018 LOCATION: Room 553. This is an 88-year-old female with recent admission for symptomatic hypoglycemia and has since then been taken off oral hypoglycemic therapy as noted with improved metabolic profile thereof. Her glucose levels now have ranged from 125 to 138 mg/dL. Her latest chemistry showed a BUN of 16, sodium 129, potassium 4.1, chloride 97, CO2 of 22, glucose 122, and creatinine 1.8. So, at this time, we will continue the serial fingerstick glucose testing with no indications for resumption of any oral hypoglycemic therapy for now. We will obtain serial chemistries and supplement accordingly as noted. We will follow. Karime Patton MD
[2018-06-22] MEDS: ceFAZolin IV 1 gm in Dextrose 1 GM/50 ML BAG IVPB SCH ×3 (01:37→16:43)
[2018-06-22] MEDS: Dextrose 5%/0.9% NS 1,000 ML IV SCH ×5 (02:13→21:17)
[2018-06-22] MEDS: Levothyroxine 50 MCG TAB PO SCH (05:41)
--- NOTE | 2018-06-22 08:35 | CP.PCM.PN ---
Subjective - Date & Time of Evaluation Date of Evaluation: 06/22/18 Time of Evaluation: 07:00 - Subjective Subjective: Progress Note for Dr. Darnell Marinelli's Service Patient seen and examined at bedside. Patient reports she feels better. She was oriented to person, place but not time. She is eating more now with Ensure. Patient denies chest pain, shortness of breath, nausea vomiting, fever, chills, dysuria or hematuria. Objective - Vital Signs/Intake and Output Vital Signs (last 24 hours): Temp Pulse Resp BP Pulse Ox 97.6 F 81 20 138/58 L 96 06/22/18 07:57 06/22/18 07:57 06/22/18 07:57 06/22/18 07:57 06/22/18 07:57 Intake and Output: 06/22/18 06/22/18 06:59 18:59 Intake Total 1930 Output Total 0 Balance 1930 - Medications Medications: Current Medications Amlodipine Besylate (Norvasc) 10 mg PO DAILY [facility] Last Admin: 06/21/18 09:18 Dose: 10 mg Dextrose (Dextrose 50% Inj) 0 ml IV STAT PRN; Protocol PRN Reason: Hypoglycemia Protocol Dextrose (Glutose 15) 0 gm PO ONCE PRN; Protocol PRN Reason: Hypoglycemia Protocol Docusate Sodium (Colace) 100 mg PO BID [facility] Last Admin: 06/21/18 17:12 Dose: 100 mg Gabapentin (Neurontin) 100 mg PO DAILY [facility] Last Admin: 06/21/18 09:18 Dose: 100 mg Glucagon (Glucagen Diagnostic Kit) 0 mg IM STAT PRN; Protocol PRN Reason: Hypoglycemia Protocol Heparin Sodium (Porcine) (Heparin) 5,000 units SC Q8 [facility] Last Admin: 06/22/18 05:40 Dose: 5,000 units Hydralazine HCl (Apresoline) 50 mg PO Q8H [facility] Last Admin: 06/22/18 02:24 Dose: 50 mg Dextrose (Dextrose 5% In Water 1000 Ml) 1,000 mls @ 0 mls/hr IV .Q0M PRN; Protocol; Per Protocol PRN Reason: Hypoglycemia Protocol Dextrose/Sodium Chloride (Dextrose 5%/0.9% Ns 1000 Ml) 1,000 mls @ 100 mls/hr IV .Q10H [facility] Last Admin: 06/22/18 02:13 Dose: Not Given Cefazolin Sodium/Dextrose (Ancef Iv 1 Gm Duplex) 1 gm in 50 mls @ 100 mls/hr IVPB Q8H [facility] PRN Reason: Protocol Last Admin: 06/22/18 01:37 Dose: 100 mls/hr Levothyroxine Sodium (Synthroid) 50 mcg PO DAILY@0630 [facility] Last Admin: 06/22/18 05:41 Dose: 50 mcg Metoprolol Tartrate (Lopressor) 50 mg PO BID [facility] Last Admin: 06/21/18 17:12 Dose: 50 mg Multivitamins (Hexavitamin) 1 tab PO DAILY [facility] Last Admin: 06/21/18 09:18 Dose: 1 tab Pantoprazole Sodium (Protonix Ec Tab) 40 mg PO DAILY [facility] Last Admin: 06/21/18 09:18 Dose: 40 mg Rosuvastatin Calcium (Crestor) 2.5 mg PO HS [facility] Last Admin: 06/21/18 21:32 Dose: 2.5 mg Saccharomyces Boulardii (Florastor) 250 mg PO BID [facility] Last Admin: 06/21/18 17:12 Dose: 250 mg - Labs Labs: 06/21/18 06:58 06/21/18 06:58 PT 12.0 SECONDS (9.7-12.2) 06/20/18 06:59 INR 1.1 06/20/18 06:59 APTT 35 SECONDS (21-34) H 06/20/18 06:59 - Additional Findings Additional findings: - Constitutional Appears: No Acute Distress, Unkempt, Confused - Head Exam Head Exam: ATRAUMATIC, NORMAL INSPECTION - Eye Exam Eye Exam: EOMI, Normal appearance - ENT Exam ENT Exam: Mucous Membranes Moist - Respiratory Exam Respiratory Exam: Clear to Ausculation Bilateral, NORMAL BREATHING PATTERN - Cardiovascular Exam Cardiovascular Exam: REGULAR RHYTHM, +S1, +S2 - GI/Abdominal Exam GI & Abdominal Exam: Soft, Normal Bowel Sounds. absent: Tenderness - Extremities Exam Extremities Exam: Normal Inspection - Neurological Exam Neurological Exam: Awake. absent: Oriented x3 (Oriented to person and place) - Psychiatric Exam Psychiatric exam: Normal Affect - Skin Skin Exam: Normal Color Assessment and Plan - Assessment and Plan (Free Text) Plan: Left Sided Hydronephrosis --- Dr. Liya Eisenberg consulted - Renal US: moderate to severe left hydronephrosis noted - CT Scan ab/pelvis: Severe left-sided hydronephrosis with atrophy of the renal parenchyma. Extensive left-sided hydroureter to the level of the distal ureter (series 2, image 66). There is no evidence of renal calculus. Appearance worrisome for stricture or neoplasm. Large left pelvic cystic lesion measures approximately 4.9 x 4.7 cm, likely ovarian in etiology. Pelvic ultrasound suggested. Small to moderate bilateral pleural effusions and compressive consolidations. - f/u reccs Hyponatremia, improving - Nephrology consult: Dr. De Oliveira --> help appreciated - Sodium: 143 on admission - Started on D5NS @ 100cc/hr - Urine osm 324 and serum osmolality 268; urine sodium - 84, Renal US: moderate to severe left hydronephrosis noted - Continue to Monitor Acute on Chronic Kidney Injury, improving - Cr on admission 2.5 - Started on D5NS @ 100cc/hr - Urine osm 324 and serum osmolality 268; urine sodium - 84, Renal US: moderate to severe left hydronephrosis noted - Continue to Monitor UTI - ID Consult: Dr. Jennings --> help appreciated - UA: 3+ Leukocyte esterase; WBC 952 - Blood culture negative - Urine culture: Coagulase Negative Staphylococcus * Ceftriaxone 1gm IV daily started by Dr. Azeb Marinelli 06/16/18 - switched to Ancef Q8H 06/21/18 * Sensitive to Tigecycline * f/u repeat UC - PICC line ordered - Spoke with patient's son Camron Drummond who stated to receive consent per Daughter in Law: Margo Cunningham #[phone]; inserted 06/19/18 on right arm Hypoglycemia, resolved - patient was admitted due to hypoglycemia after patient was given insulin at the [facility], however patient is not diabetic - Endocrinology Consult: Dr. Patton --> help appreciated - Hypoglycemia Protocol - hA1c 5.7 - Serum Insulin (06/17/18) 7.8 - Cortisol AM: 4.52 - C peptide - WNL History of HTN - Continue home medications: * Hydralazine 50mg q8h * Metoprolol Tartrate 50mg bid * Norvasc 10mg PO daily History of HLD - Continue home medication: * Crestor 2.5mg HS History of Hypothyroid - Continue Home Medication: Synthroid 50mcg daily - TSH 4.52; Thyroxine 7.79 Prophylaxis - heparin SC q8h - SCDs - Florastor 250mg bid - PT- DEEPAK - Case Management Management per Dr. Darnell Marinelli Disposition: Pending Urology reccs for hydronephrosis. F/U repeat UC. ---Jocelyn Hairston DO, PGY2
[2018-06-22 08:50] LABS: BASO % 0.2 % (0.0-2.0); EOS # 0.5 K/uL (0.0-0.7); EOS % 6.7 % (0.0-4.0); HEMOGLOBIN 9.4 g/dL (11.0-16.0); LYMPH # 2.3 K/uL (1.0-4.3); LYMPH % 27.8 % (20.0-40.0); MEAN CELL VOLUME 85.2 fL (81.0-99.0); MEAN CORPUSCULAR HEMOGLOBIN 28.1 pg (27.0-31.0); MEAN PLATELET VOLUME 8.6 fL (7.2-11.7); MONO # 0.6 K/uL (0.0-0.8); MONO % 7.4 % (0.0-10.0); NEUT # 4.7 K/uL (1.8-7.0); NEUT % 57.9 % (50.0-75.0); NRBC % 0.1 % (0.0-2.0); RBC 3.34 Mil/uL (3.80-5.20); RED CELL DISTRIBUTION WIDTH 15.1 % (11.5-14.5); WHITE BLOOD COUNT 8.1 K/uL (4.8-10.8)
[2018-06-22 09:20] LABS: CALCIUM 8.2 mg/dl (8.6-10.4)
[2018-06-22 09:29] LABS: T4 9.96 ug/dL (5.5-11.0)
[2018-06-22] MEDS: Pantoprazole 40 mg EC Tab PO SCH (10:34)
[2018-06-22] MEDS: Multiple Vitamins Tab PO SCH (10:34)
[2018-06-22] MEDS: Saccharomyces Boulardi 250 mg Cap PO SCH ×2 (10:34→17:20)
--- NOTE | 2018-06-22 12:17 | CP.PCM.PN ---
Subjective - Date & Time of Evaluation Date of Evaluation: 06/22/18 Time of Evaluation: 08:45 - Subjective Subjective: clinically same Objective - Vital Signs/Intake and Output Vital Signs (last 24 hours): Temp Pulse Resp BP Pulse Ox 97.6 F 76 20 125/60 96 06/22/18 07:57 06/22/18 10:33 06/22/18 07:57 06/22/18 10:33 06/22/18 07:57 Intake and Output: 06/22/18 06/22/18 06:59 18:59 Intake Total 1930 Output Total 0 Balance 1930 - Medications Medications: Current Medications Amlodipine Besylate (Norvasc) 10 mg PO DAILY [facility] Last Admin: 06/22/18 10:34 Dose: 10 mg Dextrose (Dextrose 50% Inj) 0 ml IV STAT PRN; Protocol PRN Reason: Hypoglycemia Protocol Dextrose (Glutose 15) 0 gm PO ONCE PRN; Protocol PRN Reason: Hypoglycemia Protocol Docusate Sodium (Colace) 100 mg PO BID [facility] Last Admin: 06/22/18 10:34 Dose: 100 mg Gabapentin (Neurontin) 100 mg PO DAILY [facility] Last Admin: 06/22/18 10:34 Dose: 100 mg Glucagon (Glucagen Diagnostic Kit) 0 mg IM STAT PRN; Protocol PRN Reason: Hypoglycemia Protocol Heparin Sodium (Porcine) (Heparin) 5,000 units SC Q8 [facility] Last Admin: 06/22/18 05:40 Dose: 5,000 units Hydralazine HCl (Apresoline) 50 mg PO Q8H [facility] Last Admin: 06/22/18 10:34 Dose: 50 mg Dextrose (Dextrose 5% In Water 1000 Ml) 1,000 mls @ 0 mls/hr IV .Q0M PRN; Protocol; Per Protocol PRN Reason: Hypoglycemia Protocol Dextrose/Sodium Chloride (Dextrose 5%/0.9% Ns 1000 Ml) 1,000 mls @ 100 mls/hr IV .Q10H [facility] Last Admin: 06/22/18 12:06 Dose: Not Given Cefazolin Sodium/Dextrose (Ancef Iv 1 Gm Duplex) 1 gm in 50 mls @ 100 mls/hr IVPB Q8H [facility] PRN Reason: Protocol Last Admin: 06/22/18 10:00 Dose: 100 mls/hr Levothyroxine Sodium (Synthroid) 50 mcg PO DAILY@0630 [facility] Last Admin: 06/22/18 05:41 Dose: 50 mcg Metoprolol Tartrate (Lopressor) 50 mg PO BID [facility] Last Admin: 06/22/18 10:34 Dose: 50 mg Multivitamins (Hexavitamin) 1 tab PO DAILY [facility] Last Admin: 06/22/18 10:34 Dose: 1 tab Pantoprazole Sodium (Protonix Ec Tab) 40 mg PO DAILY [facility] Last Admin: 06/22/18 10:34 Dose: 40 mg Rosuvastatin Calcium (Crestor) 2.5 mg PO [facility] Last Admin: 06/21/18 21:32 Dose: 2.5 mg Saccharomyces Boulardii (Florastor) 250 mg PO BID [facility] Last Admin: 06/22/18 10:34 Dose: 250 mg - Labs Labs: 06/22/18 08:45 06/22/18 08:45 PT 12.0 SECONDS (9.7-12.2) 06/20/18 06:59 INR 1.1 06/20/18 06:59 APTT 35 SECONDS (21-34) H 06/20/18 06:59
--- NOTE | 2018-06-22 13:41 | CP.PCM.PN ---
Subjective - Date & Time of Evaluation Date of Evaluation: 06/22/18 Time of Evaluation: 13:39 - Subjective Subjective: more alert no new complaint Na 131- improving Possible cysto soon for left hydro would continue on IV saline Objective - Vital Signs/Intake and Output Vital Signs (last 24 hours): Temp Pulse Resp BP Pulse Ox 97.6 F 76 20 125/60 96 06/22/18 07:57 06/22/18 10:33 06/22/18 07:57 06/22/18 10:33 06/22/18 07:57 Intake and Output: 06/22/18 06/22/18 06:59 18:59 Intake Total 1930 Output Total 0 Balance 1930 - Medications Medications: Current Medications Amlodipine Besylate (Norvasc) 10 mg PO DAILY [facility] Last Admin: 06/22/18 10:34 Dose: 10 mg Dextrose (Dextrose 50% Inj) 0 ml IV STAT PRN; Protocol PRN Reason: Hypoglycemia Protocol Dextrose (Glutose 15) 0 gm PO ONCE PRN; Protocol PRN Reason: Hypoglycemia Protocol Docusate Sodium (Colace) 100 mg PO BID [facility] Last Admin: 06/22/18 10:34 Dose: 100 mg Gabapentin (Neurontin) 100 mg PO DAILY [facility] Last Admin: 06/22/18 10:34 Dose: 100 mg Glucagon (Glucagen Diagnostic Kit) 0 mg IM STAT PRN; Protocol PRN Reason: Hypoglycemia Protocol Heparin Sodium (Porcine) (Heparin) 5,000 units SC Q8 [facility] Last Admin: 06/22/18 05:40 Dose: 5,000 units Hydralazine HCl (Apresoline) 50 mg PO Q8H [facility] Last Admin: 06/22/18 10:34 Dose: 50 mg Dextrose (Dextrose 5% In Water 1000 Ml) 1,000 mls @ 0 mls/hr IV .Q0M PRN; Protocol; Per Protocol PRN Reason: Hypoglycemia Protocol Dextrose/Sodium Chloride (Dextrose 5%/0.9% Ns 1000 Ml) 1,000 mls @ 100 mls/hr IV .Q10H [facility] Last Admin: 06/22/18 12:06 Dose: Not Given Cefazolin Sodium/Dextrose (Ancef Iv 1 Gm Duplex) 1 gm in 50 mls @ 100 mls/hr IVPB Q8H [facility] PRN Reason: Protocol Last Admin: 06/22/18 10:00 Dose: 100 mls/hr Levothyroxine Sodium (Synthroid) 50 mcg PO DAILY@0630 [facility] Last Admin: 06/22/18 05:41 Dose: 50 mcg Metoprolol Tartrate (Lopressor) 50 mg PO BID [facility] Last Admin: 06/22/18 10:34 Dose: 50 mg Multivitamins (Hexavitamin) 1 tab PO DAILY [facility] Last Admin: 06/22/18 10:34 Dose: 1 tab Pantoprazole Sodium (Protonix Ec Tab) 40 mg PO DAILY [facility] Last Admin: 06/22/18 10:34 Dose: 40 mg Rosuvastatin Calcium (Crestor) 2.5 mg PO HS [facility] Last Admin: 06/21/18 21:32 Dose: 2.5 mg Saccharomyces Boulardii (Florastor) 250 mg PO BID [facility] Last Admin: 06/22/18 10:34 Dose: 250 mg - Labs Labs: 06/22/18 08:45 06/22/18 08:45 PT 12.0 SECONDS (9.7-12.2) 06/20/18 06:59 INR 1.1 06/20/18 06:59 APTT 35 SECONDS (21-34) H 06/20/18 06:59 - Constitutional Appears: No Acute Distress, Chronically Ill - Head Exam Head Exam: ATRAUMATIC, NORMAL INSPECTION - Eye Exam Eye Exam: EOMI, Normal appearance - Neck Exam Neck Exam: Normal Inspection. absent: Tenderness - Respiratory Exam Respiratory Exam: Clear to Ausculation Bilateral, NORMAL BREATHING PATTERN - Cardiovascular Exam Cardiovascular Exam: REGULAR RHYTHM, +S1 - GI/Abdominal Exam GI & Abdominal Exam: Soft. absent: Tenderness - Extremities Exam Extremities Exam: Normal Inspection. absent: Tenderness - Neurological Exam Neurological Exam: Awake, CN II-XII Intact - Skin Skin Exam: Dry, Warm Assessment and Plan (1) Hyponatremia Status: Acute (2) COLLEEN (acute kidney injury) Status: Acute (3) CKD (chronic kidney disease) stage 3, GFR 30-59 ml/min Status: Acute (4) Dilutional hyponatremia Status: Acute - Assessment and Plan (Free Text) Plan: continue IV D5NS fluids IV ABs for UTI cystoscopy
--- NOTE | 2018-06-22 14:21 | CP.PCM.CON ---
History of Present Illness - History of Present Illness History of Present Illness: IMP: L HYDRONEPHROSIS, W HYDRONEPHROTIC ATROPHY CKD HYPERTENSION UTI INCONTINENCE FULL NOTE TBD ys Past Patient History - Past Medical History & Family History Past Family History: Reviewed and not pertinent - Past Social History Smoking Status: Never Smoked Home Situation {Lives}: Senior Living - CARDIAC Hx Hypertension: Yes - ENDOCRINE/METABOLIC Hx Hypothyroidism: Yes - HEMATOLOGICAL/ONCOLOGICAL Hx Anemia: Yes - MUSCULOSKELETAL/RHEUMATOLOGICAL Hx Falls: No - GASTROINTESTINAL Hx Gastroesophageal Reflux: Yes - PSYCHIATRIC Hx Anxiety: Yes Hx Substance Use: No - SURGICAL HISTORY Hx Amputation: Yes (R AKA) - ANESTHESIA Hx Anesthesia: Yes Hx Anesthesia Reactions: No Meds Allergies/Adverse Reactions: Allergies Allergy/AdvReac Type Severity Reaction Status Date / Time No Known Allergies Allergy Verified 06/15/18 11:45 - Medications Medications: Current Medications Amlodipine Besylate (Norvasc) 10 mg PO DAILY [facility] Last Admin: 06/22/18 10:34 Dose: 10 mg Dextrose (Dextrose 50% Inj) 0 ml IV STAT PRN; Protocol PRN Reason: Hypoglycemia Protocol Dextrose (Glutose 15) 0 gm PO ONCE PRN; Protocol PRN Reason: Hypoglycemia Protocol Docusate Sodium (Colace) 100 mg PO BID [facility] Last Admin: 06/22/18 10:34 Dose: 100 mg Gabapentin (Neurontin) 100 mg PO DAILY [facility] Last Admin: 06/22/18 10:34 Dose: 100 mg Glucagon (Glucagen Diagnostic Kit) 0 mg IM STAT PRN; Protocol PRN Reason: Hypoglycemia Protocol Heparin Sodium (Porcine) (Heparin) 5,000 units SC Q8 [facility] Last Admin: 06/22/18 05:40 Dose: 5,000 units Hydralazine HCl (Apresoline) 50 mg PO Q8H [facility] Last Admin: 06/22/18 10:34 Dose: 50 mg Dextrose (Dextrose 5% In Water 1000 Ml) 1,000 mls @ 0 mls/hr IV .Q0M PRN; Protocol; Per Protocol PRN Reason: Hypoglycemia Protocol Dextrose/Sodium Chloride (Dextrose 5%/0.9% Ns 1000 Ml) 1,000 mls @ 100 mls/hr IV .Q10H [facility] Last Admin: 06/22/18 12:06 Dose: Not Given Cefazolin Sodium/Dextrose (Ancef Iv 1 Gm Duplex) 1 gm in 50 mls @ 100 mls/hr IVPB Q8H [facility] PRN Reason: Protocol Last Admin: 06/22/18 10:00 Dose: 100 mls/hr Levothyroxine Sodium (Synthroid) 50 mcg PO DAILY@0630 [facility] Last Admin: 06/22/18 05:41 Dose: 50 mcg Metoprolol Tartrate (Lopressor) 50 mg PO BID [facility] Last Admin: 06/22/18 10:34 Dose: 50 mg Multivitamins (Hexavitamin) 1 tab PO DAILY [facility] Last Admin: 06/22/18 10:34 Dose: 1 tab Pantoprazole Sodium (Protonix Ec Tab) 40 mg PO DAILY [facility] Last Admin: 06/22/18 10:34 Dose: 40 mg Rosuvastatin Calcium (Crestor) 2.5 mg PO HS [facility] Last Admin: 06/21/18 21:32 Dose: 2.5 mg Saccharomyces Boulardii (Florastor) 250 mg PO BID [facility] Last Admin: 06/22/18 10:34 Dose: 250 mg Results - Vital Signs Recent Vital Signs: Last Vital Signs Temp 97.6 F 06/22/18 07:57 Pulse 76 06/22/18 10:33 Resp 20 06/22/18 07:57 BP 125/60 06/22/18 10:33 Pulse Ox 96 06/22/18 07:57 - Labs Result Diagrams: 06/22/18 08:45 06/22/18 08:45 Labs: Laboratory Results - last 24 hr 06/21/18 06/21/18 06/22/18 16:11 21:51 06:16 WBC RBC Hgb Hct MCV MCH MCHC RDW Plt Count MPV Neut % (Auto) Lymph % (Auto) Alfalfa % (Auto) Eos % (Auto) Baso % (Auto) Neut # (Auto) Lymph # (Auto) Alfalfa # (Auto) Eos # (Auto) Baso # (Auto) Sodium Potassium Chloride Carbon Dioxide Anion Gap BUN Creatinine Est GFR ( Amer) Est GFR (Non-Af Amer) POC Glucose (mg/dL) 120 H 126 H 119 H Random Glucose Calcium Total Bilirubin AST ALT Alkaline Phosphatase Total Protein Albumin Globulin Albumin/Globulin Ratio Thyroxine (T4) TSH 3rd Generation 06/22/18 06/22/18 06/22/18 08:45 08:45 11:17 WBC 8.1 RBC 3.34 L Hgb 9.4 L Hct 28.5 L MCV 85.2 MCH 28.1 MCHC 33.0 RDW 15.1 H Plt Count 305 MPV 8.6 Neut % (Auto) 57.9 Lymph % (Auto) 27.8 Alfalfa % (Auto) 7.4 Eos % (Auto) 6.7 H Baso % (Auto) 0.2 Neut # (Auto) 4.7 Lymph # (Auto) 2.3 Alfalfa # (Auto) 0.6 Eos # (Auto) 0.5 Baso # (Auto) 0.0 Sodium 131 L Potassium 4.1 Chloride 101 Carbon Dioxide 20 L Anion Gap 14 BUN 14 Creatinine 1.8 H Est GFR ( Amer) 32 Est GFR (Non-Af Amer) 27 POC Glucose (mg/dL) 151 H Random Glucose 113 H Calcium 8.2 L Total Bilirubin 0.2 AST 30 ALT 14 Alkaline Phosphatase 79 Total Protein 6.2 L Albumin 3.0 L Globulin 3.2 Albumin/Globulin Ratio 1.0 Thyroxine (T4) 9.96 TSH 3rd Generation 4.23 Assessment & Plan - Date & Time Date: 06/22/18 Time: 14:20
--- NOTE | 2018-06-22 18:58 | CP.PCM.PN ---
Subjective - Date & Time of Evaluation Date of Evaluation: 06/22/18 Time of Evaluation: 10:00 - Subjective Subjective: events noted pyuria persists Objective - Vital Signs/Intake and Output Vital Signs (last 24 hours): Temp Pulse Resp BP Pulse Ox 98 F 73 20 123/57 L 95 06/22/18 15:50 06/22/18 18:51 06/22/18 15:50 06/22/18 18:51 06/22/18 15:50 Intake and Output: 06/22/18 06/22/18 06:59 18:59 Intake Total 1930 Output Total 0 Balance 1930 - Medications Medications: Current Medications Amlodipine Besylate (Norvasc) 10 mg PO DAILY [facility] Last Admin: 06/22/18 10:34 Dose: 10 mg Dextrose (Dextrose 50% Inj) 0 ml IV STAT PRN; Protocol PRN Reason: Hypoglycemia Protocol Dextrose (Glutose 15) 0 gm PO ONCE PRN; Protocol PRN Reason: Hypoglycemia Protocol Docusate Sodium (Colace) 100 mg PO BID [facility] Last Admin: 06/22/18 17:20 Dose: 100 mg Gabapentin (Neurontin) 100 mg PO DAILY [facility] Last Admin: 06/22/18 10:34 Dose: 100 mg Glucagon (Glucagen Diagnostic Kit) 0 mg IM STAT PRN; Protocol PRN Reason: Hypoglycemia Protocol Heparin Sodium (Porcine) (Heparin) 5,000 units SC Q8 [facility] Last Admin: 06/22/18 14:30 Dose: 5,000 units Hydralazine HCl (Apresoline) 50 mg PO Q8H [facility] Last Admin: 06/22/18 18:53 Dose: 50 mg Dextrose (Dextrose 5% In Water 1000 Ml) 1,000 mls @ 0 mls/hr IV .Q0M PRN; Protocol; Per Protocol PRN Reason: Hypoglycemia Protocol Dextrose/Sodium Chloride (Dextrose 5%/0.9% Ns 1000 Ml) 1,000 mls @ 100 mls/hr IV .Q10H [facility] Last Admin: 06/22/18 12:06 Dose: Not Given Cefazolin Sodium/Dextrose (Ancef Iv 1 Gm Duplex) 1 gm in 50 mls @ 100 mls/hr IVPB Q8H [facility] PRN Reason: Protocol Last Admin: 06/22/18 16:43 Dose: 100 mls/hr Levothyroxine Sodium (Synthroid) 50 mcg PO DAILY@0630 [facility] Last Admin: 06/22/18 05:41 Dose: 50 mcg Metoprolol Tartrate (Lopressor) 50 mg PO BID [facility] Last Admin: 06/22/18 17:20 Dose: 50 mg Multivitamins (Hexavitamin) 1 tab PO DAILY [facility] Last Admin: 06/22/18 10:34 Dose: 1 tab Pantoprazole Sodium (Protonix Ec Tab) 40 mg PO DAILY [facility] Last Admin: 06/22/18 10:34 Dose: 40 mg Rosuvastatin Calcium (Crestor) 2.5 mg PO HS [facility] Last Admin: 06/21/18 21:32 Dose: 2.5 mg Saccharomyces Boulardii (Florastor) 250 mg PO BID [facility] Last Admin: 06/22/18 17:20 Dose: 250 mg - Labs Labs: 06/22/18 08:45 06/22/18 08:45 PT 12.0 SECONDS (9.7-12.2) 06/20/18 06:59 INR 1.1 06/20/18 06:59 APTT 35 SECONDS (21-34) H 06/20/18 06:59 - Constitutional Appears: Non-toxic, Chronically Ill - Head Exam Head Exam: NORMOCEPHALIC - Eye Exam Eye Exam: PERRL - ENT Exam ENT Exam: Mucous Membranes Dry Assessment and Plan (1) Hypoglycemia Status: Acute - Assessment and Plan (Free Text) Assessment: urine c/s repeated
[2018-06-22] MEDS: Rosuvastatin Calcium 2.5 mg Tab PO SCH (21:16)
[2018-06-23] MEDS: ceFAZolin IV 1 gm in Dextrose 1 GM/50 ML BAG IVPB SCH ×3 (01:52→16:51)
--- NOTE | 2018-06-23 02:35 | PN ---
DATE: 06/22/2018 LOCATION: Room 553. SUBJECTIVE: This is an 88-year-old female presenting here with symptomatic hypoglycemia and has since then been taken off oral hypoglycemic therapy with improvement of a glycemic profile as noted thereof. LABORATORY DATA: Her latest chemistries showed a BUN of 14, sodium 131, potassium 4.1, chloride 101, CO2 of 20, glucose 113 and creatinine 1.8. Her glucose levels have ranged from 129 to 136 and 151 mg/dL. ASSESSMENT AND PLAN: So at this time, we will continue the very low dose correction scale with regular insulin as given and hold off the resumption of any kind of oral hypoglycemic therapy as ordered. We will obtain serial chemistries and supplement accordingly as needed. We will follow. Karime Patton MD
[2018-06-23] MEDS: Levothyroxine 50 MCG TAB PO SCH (05:46)
[2018-06-23] MEDS: Dextrose 5%/0.9% NS 1,000 ML IV SCH ×3 (05:47→17:35)
[2018-06-23 07:29] LABS: BASO # 0.1 K/uL (0.0-0.2); BASO % 1.4 % (0.0-2.0); EOS # 0.6 K/uL (0.0-0.7); EOS % 6.5 % (0.0-4.0); HEMOGLOBIN 8.9 g/dL (11.0-16.0); LYMPH # 2.6 K/uL (1.0-4.3); LYMPH % 30.6 % (20.0-40.0); MEAN CELL VOLUME 85.4 fL (81.0-99.0); MEAN CORPUSCULAR HEMOGLOBIN 28.2 pg (27.0-31.0); MONO # 0.6 K/uL (0.0-0.8); MONO % 7.4 % (0.0-10.0); NEUT # 4.6 K/uL (1.8-7.0); NEUT % 54.1 % (50.0-75.0); RBC 3.14 Mil/uL (3.80-5.20); RED CELL DISTRIBUTION WIDTH 15.6 % (11.5-14.5); WHITE BLOOD COUNT 8.6 K/uL (4.8-10.8)
--- NOTE | 2018-06-23 08:04 | CP.PCM.PN ---
Subjective - Date & Time of Evaluation Date of Evaluation: 06/23/18 Time of Evaluation: 08:00 - Subjective Subjective: bp stable afebrile no new chems comfortable in bed follows commands ROS no sob no chest pain no abd pain nausea no dysuria Objective - Vital Signs/Intake and Output Vital Signs (last 24 hours): Temp Pulse Resp BP Pulse Ox 98.2 F 76 20 131/64 96 06/22/18 23:33 06/22/18 23:33 06/22/18 23:33 06/22/18 23:33 06/22/18 23:33 Intake and Output: 06/23/18 06/23/18 06:59 18:59 Intake Total 880 Output Total 900 Balance -20 - Medications Medications: Current Medications Amlodipine Besylate (Norvasc) 10 mg PO DAILY [facility] Last Admin: 06/22/18 10:34 Dose: 10 mg Dextrose (Dextrose 50% Inj) 0 ml IV STAT PRN; Protocol PRN Reason: Hypoglycemia Protocol Dextrose (Glutose 15) 0 gm PO ONCE PRN; Protocol PRN Reason: Hypoglycemia Protocol Docusate Sodium (Colace) 100 mg PO BID [facility] Last Admin: 06/22/18 17:20 Dose: 100 mg Gabapentin (Neurontin) 100 mg PO DAILY [facility] Last Admin: 06/22/18 10:34 Dose: 100 mg Glucagon (Glucagen Diagnostic Kit) 0 mg IM STAT PRN; Protocol PRN Reason: Hypoglycemia Protocol Heparin Sodium (Porcine) (Heparin) 5,000 units SC Q8 [facility] Last Admin: 06/23/18 05:46 Dose: 5,000 units Hydralazine HCl (Apresoline) 50 mg PO Q8H [facility] Last Admin: 06/23/18 03:37 Dose: 50 mg Dextrose (Dextrose 5% In Water 1000 Ml) 1,000 mls @ 0 mls/hr IV .Q0M PRN; Protocol; Per Protocol PRN Reason: Hypoglycemia Protocol Dextrose/Sodium Chloride (Dextrose 5%/0.9% Ns 1000 Ml) 1,000 mls @ 100 mls/hr IV .Q10H [facility] Last Admin: 06/23/18 05:47 Dose: 100 mls/hr Cefazolin Sodium/Dextrose (Ancef Iv 1 Gm Duplex) 1 gm in 50 mls @ 100 mls/hr IVPB Q8H [facility] PRN Reason: Protocol Last Admin: 06/23/18 01:52 Dose: 100 mls/hr Levothyroxine Sodium (Synthroid) 50 mcg PO DAILY@0630 [facility] Last Admin: 06/23/18 05:46 Dose: 50 mcg Metoprolol Tartrate (Lopressor) 50 mg PO BID [facility] Last Admin: 06/22/18 17:20 Dose: 50 mg Multivitamins (Hexavitamin) 1 tab PO DAILY [facility] Last Admin: 06/22/18 10:34 Dose: 1 tab Pantoprazole Sodium (Protonix Ec Tab) 40 mg PO DAILY [facility] Last Admin: 06/22/18 10:34 Dose: 40 mg Rosuvastatin Calcium (Crestor) 2.5 mg PO HS [facility] Last Admin: 06/22/18 21:16 Dose: 2.5 mg Saccharomyces Boulardii (Florastor) 250 mg PO BID [facility] Last Admin: 06/22/18 17:20 Dose: 250 mg - Labs Labs: 06/23/18 07:17 06/22/18 08:45 PT 12.0 SECONDS (9.7-12.2) 06/20/18 06:59 INR 1.1 06/20/18 06:59 APTT 35 SECONDS (21-34) H 06/20/18 06:59 - Constitutional Appears: No Acute Distress - ENT Exam ENT Exam: Mucous Membranes Dry - Respiratory Exam Respiratory Exam: Prolonged Expiratory Phase, NORMAL BREATHING PATTERN - Cardiovascular Exam Cardiovascular Exam: REGULAR RHYTHM - GI/Abdominal Exam GI & Abdominal Exam: Soft. absent: Distended, Tenderness - Extremities Exam Extremities Exam: absent: Calf Tenderness, Pedal Edema - Back Exam Back Exam: CVA tenderness (L) - Neurological Exam Neurological Exam: Awake - Skin Skin Exam: Dry, Warm Assessment and Plan (1) COLLEEN (acute kidney injury) Status: Acute (2) CKD (chronic kidney disease) stage 3, GFR 30-59 ml/min Status: Acute (3) Hyponatremia Status: Acute - Assessment and Plan (Free Text) Plan: await repeat chems continue low volume iv's for now
[2018-06-23 08:07] LABS: ALB/GLOB RATIO 0.9 (1.0-2.1); ALBUMIN 2.7 g/dL (3.5-5.0); ALT/SGPT 17 U/L (9-52); AST/SGOT 22 U/L (14-36); BLOOD UREA NITROGEN 11 mg/dL (7-17); CALCIUM 8.2 mg/dl (8.6-10.4); GFR NON-AFRICAN AMERICAN 30
[2018-06-23] MEDS: Multiple Vitamins Tab PO SCH (09:03)
[2018-06-23] MEDS: Pantoprazole 40 mg EC Tab PO SCH (09:03)
[2018-06-23] MEDS: Saccharomyces Boulardi 250 mg Cap PO SCH ×2 (09:03→17:30)
--- NOTE | 2018-06-23 14:48 | PN ---
DATE: 06/23/2018 SUBJECTIVE: This is an 88-year-old female with known history of type 2 diabetes and hypertension, presenting here with symptomatic hypoglycemia and has since then improved metabolically with discontinuation of oral hypoglycemic therapy and even high-dose insulin therapy. Her latest chemistries shows a BUN of 11, sodium 132, potassium 4, chloride 104, CO2 22, glucose 102, and creatinine 1.6. Her glucose levels have ranged from 129 to 136 mg/dL. We will hold off at this point any resumption of oral hypoglycemic therapy and still her oral intake improved accordingly. We will obtain serial chemistries and supplement accordingly as needed. We will follow. Karime Patton MD
--- NOTE | 2018-06-23 20:13 | CP.PCM.PN ---
Subjective - Date & Time of Evaluation Date of Evaluation: 06/23/18 Time of Evaluation: 08:15 - Subjective Subjective: clinically same Objective - Vital Signs/Intake and Output Vital Signs (last 24 hours): Temp Pulse Resp BP Pulse Ox 98.2 F 80 20 137/70 97 06/23/18 15:00 06/23/18 17:30 06/23/18 15:00 06/23/18 17:30 06/23/18 15:00 Intake and Output: 06/23/18 06/24/18 18:59 06:59 Intake Total 1580 60 Output Total 1500 Balance 80 60 - Medications Medications: Current Medications Amlodipine Besylate (Norvasc) 10 mg PO DAILY [facility] Last Admin: 06/23/18 09:03 Dose: 10 mg Dextrose (Dextrose 50% Inj) 0 ml IV STAT PRN; Protocol PRN Reason: Hypoglycemia Protocol Dextrose (Glutose 15) 0 gm PO ONCE PRN; Protocol PRN Reason: Hypoglycemia Protocol Docusate Sodium (Colace) 100 mg PO BID [facility] Last Admin: 06/23/18 17:30 Dose: 100 mg Gabapentin (Neurontin) 100 mg PO DAILY [facility] Last Admin: 06/23/18 09:03 Dose: 100 mg Glucagon (Glucagen Diagnostic Kit) 0 mg IM STAT PRN; Protocol PRN Reason: Hypoglycemia Protocol Heparin Sodium (Porcine) (Heparin) 5,000 units SC Q8 [facility] Last Admin: 06/23/18 13:12 Dose: 5,000 units Hydralazine HCl (Apresoline) 50 mg PO Q8H [facility] Last Admin: 06/23/18 19:23 Dose: 50 mg Dextrose (Dextrose 5% In Water 1000 Ml) 1,000 mls @ 0 mls/hr IV .Q0M PRN; Protocol; Per Protocol PRN Reason: Hypoglycemia Protocol Dextrose/Sodium Chloride (Dextrose 5%/0.9% Ns 1000 Ml) 1,000 mls @ 100 mls/hr IV .Q10H [facility] Last Admin: 06/23/18 17:35 Dose: 100 mls/hr Cefazolin Sodium/Dextrose (Ancef Iv 1 Gm Duplex) 1 gm in 50 mls @ 100 mls/hr IVPB Q8H [facility] PRN Reason: Protocol Last Admin: 06/23/18 16:51 Dose: 100 mls/hr Levothyroxine Sodium (Synthroid) 50 mcg PO DAILY@0630 [facility] Last Admin: 06/23/18 05:46 Dose: 50 mcg Metoprolol Tartrate (Lopressor) 50 mg PO BID [facility] Last Admin: 06/23/18 17:30 Dose: 50 mg Multivitamins (Hexavitamin) 1 tab PO DAILY [facility] Last Admin: 06/23/18 09:03 Dose: 1 tab Pantoprazole Sodium (Protonix Ec Tab) 40 mg PO DAILY [facility] Last Admin: 06/23/18 09:03 Dose: 40 mg Rosuvastatin Calcium (Crestor) 2.5 mg PO [facility] Last Admin: 06/22/18 21:16 Dose: 2.5 mg Saccharomyces Boulardii (Florastor) 250 mg PO BID [facility] Last Admin: 06/23/18 17:30 Dose: 250 mg - Labs Labs: 06/23/18 07:17 06/23/18 07:17 PT 12.0 SECONDS (9.7-12.2) 06/20/18 06:59 INR 1.1 06/20/18 06:59 APTT 35 SECONDS (21-34) H 06/20/18 06:59
[2018-06-23] MEDS: Rosuvastatin Calcium 2.5 mg Tab PO SCH (21:33)
[2018-06-24] MEDS: ceFAZolin IV 1 gm in Dextrose 1 GM/50 ML BAG IVPB SCH ×3 (00:47→16:34)
[2018-06-24] MEDS: Dextrose 5%/0.9% NS 1,000 ML IV SCH ×3 (02:36→14:01)
[2018-06-24] MEDS: Levothyroxine 50 MCG TAB PO SCH (05:36)
[2018-06-24] MEDS: Multiple Vitamins Tab PO SCH (10:30)
[2018-06-24] MEDS: Pantoprazole 40 mg EC Tab PO SCH (10:31)
[2018-06-24] MEDS: Saccharomyces Boulardi 250 mg Cap PO SCH ×2 (10:31→17:48)
--- NOTE | 2018-06-24 15:32 | PN ---
DATE: 06/24/2018 ENDO FOLLOWUP NOTE LOCATION: In room 553. SUBJECTIVE: This is an 88-year-old female with known history of type 2 diabetes and hypertension and also underlying hypothyroidism, and is now being followed closely for metabolic management. She presented here with symptomatic hypoglycemia and it has since then improved clinically and metabolically and has been off oral hypoglycemic therapy as noted. LABORATORY DATA: Her glucose levels overnight have ranged from 132 to 148 mg/dL. Her latest chemistry showed a BUN of 11, sodium 132, potassium 4, chloride 104, CO2 of 22, glucose 102, and creatinine 1.6. ASSESSMENT AND PLAN: So at this time, we will continue the serial chemistries as ordered and hold off any resumption of oral hypoglycemic therapy for now and will await improvement of her meal portions as noted. We will obtain serial chemistries and supplement accordingly as needed. We will follow. Karime Patton MD
--- NOTE | 2018-06-24 16:48 | CP.PCM.PN ---
Subjective - Date & Time of Evaluation Date of Evaluation: 06/24/18 Time of Evaluation: 09:00 - Subjective Subjective: no fever iv rx renewed Objective - Vital Signs/Intake and Output Vital Signs (last 24 hours): Temp Pulse Resp BP Pulse Ox 98 F 93 H 22 166/68 H 95 06/24/18 16:00 06/24/18 16:19 06/24/18 16:19 06/24/18 16:26 06/24/18 16:19 Intake and Output: 06/24/18 06/24/18 06:59 18:59 Intake Total 1530 250 Output Total 1200 1 Balance 330 249 - Medications Medications: Current Medications Amlodipine Besylate (Norvasc) 10 mg PO DAILY [facility] Last Admin: 06/24/18 10:33 Dose: 10 mg Dextrose (Dextrose 50% Inj) 0 ml IV STAT PRN; Protocol PRN Reason: Hypoglycemia Protocol Dextrose (Glutose 15) 0 gm PO ONCE PRN; Protocol PRN Reason: Hypoglycemia Protocol Docusate Sodium (Colace) 100 mg PO BID [facility] Last Admin: 06/24/18 10:31 Dose: 100 mg Gabapentin (Neurontin) 100 mg PO DAILY [facility] Last Admin: 06/24/18 10:31 Dose: 100 mg Glucagon (Glucagen Diagnostic Kit) 0 mg IM STAT PRN; Protocol PRN Reason: Hypoglycemia Protocol Hydralazine HCl (Apresoline) 50 mg PO Q8H [facility] Last Admin: 06/24/18 11:32 Dose: 50 mg Cefazolin Sodium/Dextrose (Ancef Iv 1 Gm Duplex) 1 gm in 50 mls @ 100 mls/hr IVPB Q8H [facility] PRN Reason: Protocol Last Admin: 06/24/18 16:34 Dose: 100 mls/hr Levothyroxine Sodium (Synthroid) 50 mcg PO DAILY@0630 [facility] Last Admin: 06/24/18 05:36 Dose: 50 mcg Metoprolol Tartrate (Lopressor) 50 mg PO BID [facility] Last Admin: 06/24/18 10:31 Dose: 50 mg Multivitamins (Hexavitamin) 1 tab PO DAILY [facility] Last Admin: 06/24/18 10:30 Dose: 1 tab Pantoprazole Sodium (Protonix Ec Tab) 40 mg PO DAILY [facility] Last Admin: 06/24/18 10:31 Dose: 40 mg Polyethylene Glycol (Miralax) 17 gm PO DAILY [facility] Rosuvastatin Calcium (Crestor) 2.5 mg PO HS [facility] Last Admin: 06/23/18 21:33 Dose: 2.5 mg Saccharomyces Boulardii (Florastor) 250 mg PO BID [facility] Last Admin: 06/24/18 10:31 Dose: 250 mg - Labs Labs: 06/23/18 07:17 06/23/18 07:17 PT 12.0 SECONDS (9.7-12.2) 06/20/18 06:59 INR 1.1 06/20/18 06:59 APTT 35 SECONDS (21-34) H 06/20/18 06:59 - Constitutional Appears: Non-toxic, Chronically Ill - Head Exam Head Exam: NORMOCEPHALIC - Eye Exam Eye Exam: PERRL. absent: Scleral icterus - ENT Exam ENT Exam: Mucous Membranes Dry - Neck Exam Neck Exam: absent: Lymphadenopathy - Respiratory Exam Respiratory Exam: Decreased Breath Sounds - Cardiovascular Exam Cardiovascular Exam: REGULAR RHYTHM - GI/Abdominal Exam GI & Abdominal Exam: Distended, Soft - Rectal Exam Rectal Exam: Deferred - Exam Exam: NORMAL INSPECTION Assessment and Plan (1) Hypoglycemia Status: Acute - Assessment and Plan (Free Text) Assessment: cont iv rx as ordered
[2018-06-24] MEDS ORDERED: Albuterol-Ipratrop 3 mg / 0.5 (3 ml) UD INH STA (17:57)
--- NOTE | 2018-06-24 18:07 | CP.PCM.PN ---
Subjective - Date & Time of Evaluation Date of Evaluation: 06/24/18 Time of Evaluation: 08:15 - Subjective Subjective: clinically same Objective - Vital Signs/Intake and Output Vital Signs (last 24 hours): Temp Pulse Resp BP Pulse Ox 98 F 93 H 22 166/68 H 95 06/24/18 16:00 06/24/18 16:19 06/24/18 16:19 06/24/18 16:26 06/24/18 16:19 Intake and Output: 06/24/18 06/24/18 06:59 18:59 Intake Total 1530 460 Output Total 1200 1 Balance 330 459 - Medications Medications: Current Medications Albuterol/Ipratropium (Duoneb 3 Mg/0.5 Mg (3 Ml) Ud) 3 ml INH RSTAT [facility] Stop: 06/24/18 17:58 Amlodipine Besylate (Norvasc) 10 mg PO DAILY [facility] Last Admin: 06/24/18 10:33 Dose: 10 mg Dextrose (Dextrose 50% Inj) 0 ml IV STAT PRN; Protocol PRN Reason: Hypoglycemia Protocol Dextrose (Glutose 15) 0 gm PO ONCE PRN; Protocol PRN Reason: Hypoglycemia Protocol Docusate Sodium (Colace) 100 mg PO BID [facility] Last Admin: 06/24/18 17:48 Dose: 100 mg Gabapentin (Neurontin) 100 mg PO DAILY [facility] Last Admin: 06/24/18 10:31 Dose: 100 mg Glucagon (Glucagen Diagnostic Kit) 0 mg IM STAT PRN; Protocol PRN Reason: Hypoglycemia Protocol Hydralazine HCl (Apresoline) 50 mg PO Q8H [facility] Last Admin: 06/24/18 11:32 Dose: 50 mg Cefazolin Sodium/Dextrose (Ancef Iv 1 Gm Duplex) 1 gm in 50 mls @ 100 mls/hr IVPB Q8H [facility] PRN Reason: Protocol Last Admin: 06/24/18 16:34 Dose: 100 mls/hr Levothyroxine Sodium (Synthroid) 50 mcg PO DAILY@0630 [facility] Last Admin: 06/24/18 05:36 Dose: 50 mcg Metoprolol Tartrate (Lopressor) 50 mg PO BID [facility] Last Admin: 06/24/18 17:48 Dose: 50 mg Multivitamins (Hexavitamin) 1 tab PO DAILY [facility] Last Admin: 06/24/18 10:30 Dose: 1 tab Pantoprazole Sodium (Protonix Ec Tab) 40 mg PO DAILY [facility] Last Admin: 06/24/18 10:31 Dose: 40 mg Polyethylene Glycol (Miralax) 17 gm PO DAILY [facility] Rosuvastatin Calcium (Crestor) 2.5 mg PO HS [facility] Last Admin: 06/23/18 21:33 Dose: 2.5 mg Saccharomyces Boulardii (Florastor) 250 mg PO BID [facility] Last Admin: 06/24/18 17:48 Dose: 250 mg - Labs Labs: 06/23/18 07:17 06/23/18 07:17 PT 12.0 SECONDS (9.7-12.2) 06/20/18 06:59 INR 1.1 06/20/18 06:59 APTT 35 SECONDS (21-34) H 06/20/18 06:59
[2018-06-24] MEDS ORDERED: Albuterol-Ipratrop 3 mg / 0.5 (3 ml) UD ONE (18:13)
--- NOTE | 2018-06-24 19:26 | CON ---
DATE: 06/24/2018 Urology consultation requested by Nino Marinelli. Urology consultation filled by Dr. Liya Eisenberg. REASON FOR CONSULTATION: Hydronephrosis. The patient is an 88-year-old female admitted with hypoglycemia. The patient was given insulin at her long term. She did not have diabetes. She had persistent hypoglycemia requiring admission. During this admission, the patient was found to have bacteriuria. The patient has been treated with antibiotic therapy, namely Ancef for staph bacteriuria. The patient has history of hypertension. No history of diabetes. The patient underwent renal ultrasound which demonstrated left hydronephrosis. Moderate to severe in nature. The patient is urinating. She has urinary incontinence. I subsequently advised that a CT scan of the abdomen and pelvis to assess the left hydronephrosis. PHYSICAL EXAMINATION: GENERAL: The patient is well-developed, well-nourished elderly female. The patient is awake and alert. ABDOMEN: Soft, nontender, nondistended. No mass or organomegaly. BACK: No CVA tenderness. There is mild suprapubic dullness. LABORATORY DATA: Laboratory data reviewed. BUN and creatinine are noted, BUN 16, creatinine on admission 2.5, repeat creatinine is 1.8, hemoglobin is 9, white blood count 7900. I reviewed the CT scan. There was severe hydronephrosis on the left. There is left hydronephrotic atrophy with just a shell of the kidney without significant functioning parenchyma. There was dilation of the ureter down to the pelvic rim. There is a cystic mass above the bladder. There was some bladder distention as well. IMPRESSION: Left hydronephrosis. Urinary tract infection. Urinary incontinence. RECOMMENDATIONS AND PLAN: Continue antibiotic therapy. Monitor urine output. Monitor renal function. Further urologic evaluation may be important for diagnosis of a course for the obstruction. Possible cystoscopy and retrograde pyelogram to follow. Possible conservative management at this point. Further determination may be performed. The overall condition and nature of a the patient will effect this decision process. Thank you for recommending the patient for urology consultation. Liya Eisenberg MD cc: Nino Marinelli MD [facility] # [phone]
[2018-06-24] MEDS: Rosuvastatin Calcium 2.5 mg Tab PO SCH (21:41)
[2018-06-25] MEDS: ceFAZolin IV 1 gm in Dextrose 1 GM/50 ML BAG IVPB SCH ×3 (00:39→17:37)
[2018-06-25] MEDS: Levothyroxine 50 MCG TAB PO SCH (05:44)
[2018-06-25] MEDS: Pantoprazole 40 mg EC Tab PO SCH (09:41)
[2018-06-25] MEDS: Multiple Vitamins Tab PO SCH (09:41)
[2018-06-25] MEDS: Saccharomyces Boulardi 250 mg Cap PO SCH ×2 (09:41→17:37)
[2018-06-25] MEDS: POLYETHYLENE GLYCOL 3350 17 GM/Dose PACKET PO SCH (09:41)
[2018-06-25 11:25] LABS: BASO # 0.1 K/uL (0.0-0.2); BASO % 0.5 % (0.0-2.0); EOS # 0.1 K/uL (0.0-0.7); EOS % 0.4 % (0.0-4.0); HEMOGLOBIN 8.2 g/dL (11.0-16.0); LYMPH # 1.9 K/uL (1.0-4.3); LYMPH % 11.2 % (20.0-40.0); MEAN CORPUSCULAR HEMOGLOBIN 28.5 pg (27.0-31.0); MEAN CORPUSCULAR HGB CONC 33.5 g/dL (33.0-37.0); MEAN PLATELET VOLUME 8.6 fL (7.2-11.7); MONO # 0.8 K/uL (0.0-0.8); MONO % 4.5 % (0.0-10.0); NEUT % 83.4 % (50.0-75.0); RBC 2.89 Mil/uL (3.80-5.20); RED CELL DISTRIBUTION WIDTH 15.5 % (11.5-14.5)
[2018-06-25 11:29] LABS: WHITE BLOOD COUNT 16.8 K/uL (4.8-10.8)
[2018-06-25 11:38] LABS: ALB/GLOB RATIO 0.9 (1.0-2.1); ALBUMIN 3.1 g/dL (3.5-5.0); CALCIUM 8.7 mg/dl (8.6-10.4)
--- NOTE | 2018-06-25 12:12 | CT ---
Date of service: 06/24/2018 PROCEDURE: CT Chest without contrast HISTORY: Shortness of breath COMPARISON: Plain radiographs from 06/19/2018. TECHNIQUE: Contiguous axial images were obtained through the chest without intravenous contrast enhancement. Sagittal and coronal reconstructions were performed. Radiation dose (DLP): 574.77 mGy-cm. This CT exam was performed using one or more of the following dose reduction techniques: Automated exposure control, adjustment of the mA and/or kV according to patient size, and/or use of iterative reconstruction technique. FINDINGS: Right PICC line terminates in the distal SVC. LUNGS: There is focal ground-glass attenuation in the anterior segment of the right upper lobe. There is mild interlobular septal thickening. There is multifocal atelectasis in the lungs and compressive atelectasis in the lower lobes. There are no endobronchial lesions. MEDIASTINUM: Unremarkable thoracic aorta. No aneurysm. Mild cardiomegaly. Main pulmonary artery unremarkable. No vascular congestion. No lymphadenopathy. PLEURA: Moderate bilateral pleural effusions. No pneumothorax. BONES: No fracture. No destructive lesion. Within normal limits for the patient's age. UPPER ABDOMEN: The adrenal glands are normal. There is abnormal cystic lesion in the region of the left renal fossa. OTHER FINDINGS: None. IMPRESSION: Moderate bilateral pleural effusions, mild interstitial pulmonary edema and presumable mild alveolar edema in the anterior segment of the right upper lobe, most compatible with congestive heart failure. A preliminary report was provided by [employer].
--- NOTE | 2018-06-25 12:49 | CP.PCM.PN ---
Subjective - Date & Time of Evaluation Date of Evaluation: 06/25/18 Time of Evaluation: 12:47 - Subjective Subjective: appears same Na slowly improved- now 133 On ABs, off fluids no new changes Objective - Vital Signs/Intake and Output Vital Signs (last 24 hours): Temp Pulse Resp BP Pulse Ox 97.4 F L 73 20 157/65 H 100 06/25/18 07:30 06/25/18 07:30 06/25/18 07:30 06/25/18 12:28 06/25/18 07:30 Intake and Output: 06/25/18 06/25/18 06:59 18:59 Intake Total 510 Output Total 800 Balance -290 - Medications Medications: Current Medications Amlodipine Besylate (Norvasc) 10 mg PO DAILY [facility] Last Admin: 06/25/18 09:41 Dose: 10 mg Dextrose (Dextrose 50% Inj) 0 ml IV STAT PRN; Protocol PRN Reason: Hypoglycemia Protocol Dextrose (Glutose 15) 0 gm PO ONCE PRN; Protocol PRN Reason: Hypoglycemia Protocol Docusate Sodium (Colace) 100 mg PO BID [facility] Last Admin: 06/25/18 09:41 Dose: 100 mg Gabapentin (Neurontin) 100 mg PO DAILY [facility] Last Admin: 06/25/18 09:41 Dose: 100 mg Glucagon (Glucagen Diagnostic Kit) 0 mg IM STAT PRN; Protocol PRN Reason: Hypoglycemia Protocol Hydralazine HCl (Apresoline) 50 mg PO Q8H [facility] Last Admin: 06/25/18 12:26 Dose: 50 mg Cefazolin Sodium/Dextrose (Ancef Iv 1 Gm Duplex) 1 gm in 50 mls @ 100 mls/hr IVPB Q8H [facility] PRN Reason: Protocol Last Admin: 06/25/18 09:41 Dose: 100 mls/hr Levothyroxine Sodium (Synthroid) 50 mcg PO DAILY@0630 [facility] Last Admin: 06/25/18 05:44 Dose: 50 mcg Metoprolol Tartrate (Lopressor) 50 mg PO BID [facility] Last Admin: 06/25/18 11:30 Dose: 50 mg Multivitamins (Hexavitamin) 1 tab PO DAILY [facility] Last Admin: 06/25/18 09:41 Dose: 1 tab Pantoprazole Sodium (Protonix Ec Tab) 40 mg PO DAILY [facility] Last Admin: 06/25/18 09:41 Dose: 40 mg Polyethylene Glycol (Miralax) 17 gm PO DAILY [facility] Last Admin: 06/25/18 09:41 Dose: 17 gm Rosuvastatin Calcium (Crestor) 2.5 mg PO HS [facility] Last Admin: 06/24/18 21:41 Dose: 2.5 mg Saccharomyces Boulardii (Florastor) 250 mg PO BID [facility] Last Admin: 06/25/18 09:41 Dose: 250 mg - Labs Labs: 06/25/18 11:16 06/25/18 11:16 PT 12.0 SECONDS (9.7-12.2) 06/20/18 06:59 INR 1.1 06/20/18 06:59 APTT 35 SECONDS (21-34) H 06/20/18 06:59 - Constitutional Appears: No Acute Distress, Chronically Ill - Head Exam Head Exam: ATRAUMATIC, NORMAL INSPECTION - Eye Exam Eye Exam: EOMI, Normal appearance - Neck Exam Neck Exam: Normal Inspection. absent: Tenderness - Respiratory Exam Respiratory Exam: Clear to Ausculation Bilateral, NORMAL BREATHING PATTERN - Cardiovascular Exam Cardiovascular Exam: REGULAR RHYTHM, +S1 - GI/Abdominal Exam GI & Abdominal Exam: Soft. absent: Tenderness - Extremities Exam Extremities Exam: Normal Inspection. absent: Tenderness - Neurological Exam Neurological Exam: Altered - Skin Skin Exam: Dry, Warm Assessment and Plan (1) Hyponatremia Status: Acute (2) COLLEEN (acute kidney injury) Status: Acute (3) CKD (chronic kidney disease) stage 3, GFR 30-59 ml/min Status: Acute (4) Dilutional hyponatremia Status: Acute - Assessment and Plan (Free Text) Plan: continue to monitor lytes, renal function
--- NOTE | 2018-06-25 13:07 | CP.PCM.PN ---
Subjective - Date & Time of Evaluation Date of Evaluation: 06/25/18 Time of Evaluation: 12:52 - Subjective Subjective: PGY2 Medicine Note for Dr. Azeb Marinelli Patient seen and examined this afternoon at bedside. Patient states she is feeling and breathing well. She is oriented to self and placed but not time. She is currently wearing a non-rebreather mask stating she is ok. She is eating and drinking better. Denies any complaints at this time. Denies fevers, chills, nausea, vomiting, diarrhea, constipation, chest pain, shortness of breath, abdominal pain, urinary complaints. Objective - Vital Signs/Intake and Output Vital Signs (last 24 hours): Temp Pulse Resp BP Pulse Ox 97.4 F L 73 20 157/65 H 100 06/25/18 07:30 06/25/18 07:30 06/25/18 07:30 06/25/18 12:28 06/25/18 07:30 Intake and Output: 06/25/18 06/25/18 06:59 18:59 Intake Total 510 Output Total 800 Balance -290 - Medications Medications: Current Medications Amlodipine Besylate (Norvasc) 10 mg PO DAILY [facility] Last Admin: 06/25/18 09:41 Dose: 10 mg Dextrose (Dextrose 50% Inj) 0 ml IV STAT PRN; Protocol PRN Reason: Hypoglycemia Protocol Dextrose (Glutose 15) 0 gm PO ONCE PRN; Protocol PRN Reason: Hypoglycemia Protocol Docusate Sodium (Colace) 100 mg PO BID [facility] Last Admin: 06/25/18 09:41 Dose: 100 mg Gabapentin (Neurontin) 100 mg PO DAILY [facility] Last Admin: 06/25/18 09:41 Dose: 100 mg Glucagon (Glucagen Diagnostic Kit) 0 mg IM STAT PRN; Protocol PRN Reason: Hypoglycemia Protocol Hydralazine HCl (Apresoline) 50 mg PO Q8H [facility] Last Admin: 06/25/18 12:26 Dose: 50 mg Cefazolin Sodium/Dextrose (Ancef Iv 1 Gm Duplex) 1 gm in 50 mls @ 100 mls/hr IVPB Q8H [facility] PRN Reason: Protocol Last Admin: 06/25/18 09:41 Dose: 100 mls/hr Levothyroxine Sodium (Synthroid) 50 mcg PO DAILY@0630 [facility] Last Admin: 06/25/18 05:44 Dose: 50 mcg Metoprolol Tartrate (Lopressor) 50 mg PO BID [facility] Last Admin: 06/25/18 11:30 Dose: 50 mg Multivitamins (Hexavitamin) 1 tab PO DAILY [facility] Last Admin: 06/25/18 09:41 Dose: 1 tab Pantoprazole Sodium (Protonix Ec Tab) 40 mg PO DAILY [facility] Last Admin: 06/25/18 09:41 Dose: 40 mg Polyethylene Glycol (Miralax) 17 gm PO DAILY [facility] Last Admin: 06/25/18 09:41 Dose: 17 gm Rosuvastatin Calcium (Crestor) 2.5 mg PO HS [facility] Last Admin: 06/24/18 21:41 Dose: 2.5 mg Saccharomyces Boulardii (Florastor) 250 mg PO BID [facility] Last Admin: 06/25/18 09:41 Dose: 250 mg - Labs Labs: 06/25/18 11:16 06/25/18 11:16 PT 12.0 SECONDS (9.7-12.2) 06/20/18 06:59 INR 1.1 06/20/18 06:59 APTT 35 SECONDS (21-34) H 06/20/18 06:59 - Constitutional Appears: Non-toxic, Chronically Ill - Head Exam Head Exam: ATRAUMATIC, NORMOCEPHALIC - Eye Exam Eye Exam: Normal appearance - ENT Exam ENT Exam: Mucous Membranes Moist - Neck Exam Neck Exam: absent: Lymphadenopathy - Respiratory Exam Respiratory Exam: Decreased Breath Sounds, Rales, NORMAL BREATHING PATTERN (non- rebreather at 6L). absent: Accessory Muscle Use, Chest Wall Tenderness, Clear to Ausculation Bilateral, Rhonchi, Wheezes - Cardiovascular Exam Cardiovascular Exam: REGULAR RHYTHM, +S1, +S2 - GI/Abdominal Exam GI & Abdominal Exam: Soft. absent: Distended, Firm, Guarding, Rigid, Tenderness - Extremities Exam Extremities Exam: absent: Calf Tenderness, Pedal Edema - Neurological Exam Neurological Exam: Alert, Awake. absent: Oriented x3 - Psychiatric Exam Psychiatric exam: Normal Affect, Normal Mood - Skin Skin Exam: Dry, Warm Assessment and Plan - Assessment and Plan (Free Text) Plan: Left Sided Hydronephrosis --- Dr. Liya Eisenberg consulted * continue abx therapy * monitor urine output * monitor renal function * possible cysto/retrograde pyelogram to follow. Possible conservative management at this point. Further determination may be performed * THe overall condition and nature of the patient will effect this decision process. - Renal US: moderate to severe left hydronephrosis noted - CT Scan ab/pelvis: Severe left-sided hydronephrosis with atrophy of the renal parenchyma. Extensive left-sided hydroureter to the level of the distal ureter (series 2, image 66). There is no evidence of renal calculus. Appearance worrisome for stricture or neoplasm. Large left pelvic cystic lesion measures approximately 4.9 x 4.7 cm, likely ovarian in etiology. Pelvic ultrasound suggested. Small to moderate bilateral pleural effusions and compressive consolidations. Pleural Effusion b/l - Pulmonology consulted, Dr. Biggs - Chest CT 06/24/18: * Moderate bilateral pleural effusions, mild interstitial pulmonary edema and presumable mild alveolar edema in the anterior segment of the right upper lobe, most compatible with congestive heart failure. Leukocytosis Elevated WBC 16.8 afebrile Blood cultures and Urine cultures pending Hyponatremia, resolved - Nephrology consult: Dr. De Oliveira --> help appreciated - Sodium: 143 on admission - Urine osm 324 and serum osmolality 268; urine sodium - 84, Renal US: moderate to severe left hydronephrosis noted - Continue to Monitor Acute on Chronic Kidney Injury - Cr on admission 2.5, today 1.9 (was 1.6 on 06/23) - Urine osm 324 and serum osmolality 268; urine sodium - 84, Renal US: moderate to severe left hydronephrosis noted - Continue to Monitor UTI - ID Consult: Dr. Jennings --> help appreciated - UA: 3+ Leukocyte esterase; WBC 952 - Blood culture negative - Urine culture: Coagulase Negative Staphylococcus * Ceftriaxone 1gm IV daily started by Dr. Azeb Marinelli 06/16/18 - switched to Ancef Q8H 06/21/18 * Sensitive to Tigecycline * Repeat Urine Culture 06/22: no growth * Repeat Urine Culture 06/25: pending - PICC line ordered - Spoke with patient's son Camron Drummond who stated to receive consent per Daughter in Law: Margo Cunningham #[phone]; inserted 06/19/18 on right arm Hypoglycemia, resolved - patient was admitted due to hypoglycemia after patient was given insulin at the [facility], however patient is not diabetic - Endocrinology Consult: Dr. Patton --> help appreciated - Hypoglycemia Protocol - hA1c 5.7 - Serum Insulin (06/17/18) 7.8 - Cortisol AM: 4.52 - C peptide - WNL History of HTN - Continue home medications: * Hydralazine 50mg q8h * Metoprolol Tartrate 50mg bid * Norvasc 10mg PO daily History of HLD - Continue home medication: * Crestor 2.5mg HS History of Hypothyroid - Continue Home Medication: Synthroid 50mcg daily - TSH 4.52; Thyroxine 7.79 Prophylaxis - heparin SC q8h - SCDs - Florastor 250mg bid - PT- DEEPAK - Case Management
--- NOTE | 2018-06-25 13:09 | EEG ---
DATE: 06/18/2018 This is a 16-channel electroencephalogram of awake and drowsy adult. During the study, photic stimulation was performed. Hyperventilation was not performed. The resting electroencephalogram consists of low amplitude diffuse 4-5 Hz high delta mixed with low theta activities noted in posterior dominant rhythm with eyes closed. Anteriorly, fast activities superimposed with 2-3 Hz delta activities seen. Intermittent movement as well as muscle artifact contaminated at the background rhythm. The photic stimulation did not evoke driving response noted at 2 to 20 Hz. IMPRESSION: This is an abnormal electroencephalogram because of persistent slowing throughout the record suggestive of bilateral cerebral dysfunction. This is probably secondary to metabolic, vascular or degenerative process. Please correlate the findings with the neurological and radiological studies. Alexandre Chapin MD
--- NOTE | 2018-06-25 15:37 | CP.PCM.CON ---
History of Present Illness - History of Present Illness History of Present Illness: reason for consultation: shortness of breath 88-year-old female was initially transferred from shelter after she was found unresponsivewith hypoglycemia. Patient is being treated for hyponatremia and left hydronephrosis by urology.. Patient was placed on nonrebreather mask for hypoxemia and increasing shortness of breath. CAT scan of the chest consistent with bilateral pleural effusion and pulmonary edema. Review of Systems - Review of Systems All systems: reviewed and no additional remarkable complaints except (shortness of breath) Past Patient History - Past Medical History & Family History Past Family History: Reviewed and not pertinent - Past Social History Smoking Status: Never Smoked Home Situation {Lives}: [facility] - CARDIAC Hx Hypertension: Yes - ENDOCRINE/METABOLIC Hx Hypothyroidism: Yes - HEMATOLOGICAL/ONCOLOGICAL Hx Anemia: Yes - MUSCULOSKELETAL/RHEUMATOLOGICAL Hx Falls: No - GASTROINTESTINAL Hx Gastroesophageal Reflux: Yes - PSYCHIATRIC Hx Anxiety: Yes Hx Substance Use: No - SURGICAL HISTORY Hx Amputation: Yes (R AKA) - ANESTHESIA Hx Anesthesia: Yes Hx Anesthesia Reactions: No Meds Allergies/Adverse Reactions: Allergies Allergy/AdvReac Type Severity Reaction Status Date / Time No Known Allergies Allergy Verified 06/15/18 11:45 - Medications Medications: Current Medications Amlodipine Besylate (Norvasc) 10 mg PO DAILY [facility] Last Admin: 06/25/18 09:41 Dose: 10 mg Dextrose (Dextrose 50% Inj) 0 ml IV STAT PRN; Protocol PRN Reason: Hypoglycemia Protocol Dextrose (Glutose 15) 0 gm PO ONCE PRN; Protocol PRN Reason: Hypoglycemia Protocol Docusate Sodium (Colace) 100 mg PO BID [facility] Last Admin: 06/25/18 09:41 Dose: 100 mg Gabapentin (Neurontin) 100 mg PO DAILY [facility] Last Admin: 06/25/18 09:41 Dose: 100 mg Glucagon (Glucagen Diagnostic Kit) 0 mg IM STAT PRN; Protocol PRN Reason: Hypoglycemia Protocol Heparin Sodium (Porcine) (Heparin) 5,000 units SC Q8 [facility] Last Admin: 06/25/18 14:00 Dose: 5,000 units Hydralazine HCl (Apresoline) 50 mg PO Q8H [facility] Last Admin: 06/25/18 12:26 Dose: 50 mg Cefazolin Sodium/Dextrose (Ancef Iv 1 Gm Duplex) 1 gm in 50 mls @ 100 mls/hr IVPB Q8H [facility] PRN Reason: Protocol Last Admin: 06/25/18 09:41 Dose: 100 mls/hr Levothyroxine Sodium (Synthroid) 50 mcg PO DAILY@0630 [facility] Last Admin: 06/25/18 05:44 Dose: 50 mcg Metoprolol Tartrate (Lopressor) 50 mg PO BID [facility] Last Admin: 06/25/18 11:30 Dose: 50 mg Multivitamins (Hexavitamin) 1 tab PO DAILY [facility] Last Admin: 06/25/18 09:41 Dose: 1 tab Pantoprazole Sodium (Protonix Ec Tab) 40 mg PO DAILY [facility] Last Admin: 06/25/18 09:41 Dose: 40 mg Polyethylene Glycol (Miralax) 17 gm PO DAILY [facility] Last Admin: 06/25/18 09:41 Dose: 17 gm Rosuvastatin Calcium (Crestor) 2.5 mg PO HS [facility] Last Admin: 06/24/18 21:41 Dose: 2.5 mg Saccharomyces Boulardii (Florastor) 250 mg PO BID [facility] Last Admin: 06/25/18 09:41 Dose: 250 mg Physical Exam - Head Exam Head Exam: ATRAUMATIC, NORMOCEPHALIC - ENT Exam ENT Exam: Mucous Membranes Moist - Neck Exam Neck exam: Positive for: Normal Inspection - Respiratory Exam Respiratory Exam: Decreased Breath Sounds - Cardiovascular Exam Cardiovascular Exam: REGULAR RHYTHM - GI/Abdominal Exam GI & Abdominal Exam: Normal Bowel Sounds, Soft - Extremities Exam Extremities exam: Positive for: pedal edema - Neurological Exam Neurological exam: Alert Results - Vital Signs Recent Vital Signs: Last Vital Signs Temp 97.4 F L 06/25/18 07:30 Pulse 73 06/25/18 07:30 Resp 20 06/25/18 07:30 BP 157/65 H 06/25/18 12:28 Pulse Ox 100 06/25/18 07:30 - Labs Result Diagrams: 06/25/18 11:16 06/25/18 11:16 Labs: Laboratory Results - last 24 hr 06/24/18 06/24/18 06/24/18 11:39 17:00 20:54 WBC RBC Hgb Hct MCV MCH MCHC RDW Plt Count MPV Neut % (Auto) Lymph % (Auto) [place] % (Auto) Eos % (Auto) Baso % (Auto) Neut # (Auto) Lymph # (Auto) [place] # (Auto) Eos # (Auto) Baso # (Auto) Sodium Potassium Chloride Carbon Dioxide Anion Gap BUN Creatinine Est GFR ( Amer) Est GFR (Non-Af Amer) POC Glucose (mg/dL) 134 H 165 H 120 H Random Glucose Calcium Magnesium Total Bilirubin AST ALT Alkaline Phosphatase Total Protein Albumin Globulin Albumin/Globulin Ratio 06/25/18 06/25/18 06/25/18 00:04 06:28 08:08 WBC RBC Hgb Hct MCV MCH MCHC RDW Plt Count MPV Neut % (Auto) Lymph % (Auto) [place] % (Auto) Eos % (Auto) Baso % (Auto) Neut # (Auto) Lymph # (Auto) [place] # (Auto) Eos # (Auto) Baso # (Auto) Sodium Potassium Chloride Carbon Dioxide Anion Gap BUN Creatinine Est GFR ( Amer) Est GFR (Non-Af Amer) POC Glucose (mg/dL) 116 H 105 96 Random Glucose Calcium Magnesium Total Bilirubin AST ALT Alkaline Phosphatase Total Protein Albumin Globulin Albumin/Globulin Ratio 06/25/18 06/25/18 06/25/18 11:16 11:16 11:43 WBC 16.8 H D RBC 2.89 L Hgb 8.2 L Hct 24.6 L MCV 85.0 MCH 28.5 MCHC 33.5 RDW 15.5 H Plt Count 328 MPV 8.6 Neut % (Auto) 83.4 H Lymph % (Auto) 11.[address] [place] % (Auto) 4.5 Eos % (Auto) 0.4 Baso % (Auto) 0.5 Neut # (Auto) 14.0 H Lymph # (Auto) 1.9 [place] # (Auto) 0.8 Eos # (Auto) 0.1 Baso # (Auto) 0.1 Sodium 133 Potassium 3.8 Chloride 101 Carbon Dioxide 19 L Anion Gap 17 BUN 14 Creatinine 1.9 H Est GFR ( Amer) 30 Est GFR (Non-Af Amer) 25 POC Glucose (mg/dL) 113 H Random Glucose 120 H Calcium 8.7 Magnesium 1.4 L Total Bilirubin 0.2 AST 27 ALT 13 Alkaline Phosphatase 91 Total Protein 6.4 Albumin 3.1 L Globulin 3.3 Albumin/Globulin Ratio 0.9 L Assessment & Plan (1) Acute respiratory insufficiency Status: Acute Comment: secondary to bilateral pleural effusions and CHF. Consider IV Lasix. High flow oxygen. Followup ABG (2) Pleural effusion due to CHF (congestive heart failure) Status: Acute
--- NOTE | 2018-06-25 18:27 | CP.PCM.PN ---
Subjective - Date & Time of Evaluation Date of Evaluation: 06/25/18 Time of Evaluation: 08:15 - Subjective Subjective: clinically same Objective - Vital Signs/Intake and Output Vital Signs (last 24 hours): Temp Pulse Resp BP Pulse Ox 97.6 F 77 20 126/61 97 06/25/18 16:00 06/25/18 16:00 06/25/18 16:00 06/25/18 16:00 06/25/18 16:00 Intake and Output: 06/25/18 06/25/18 06:59 18:59 Intake Total 510 550 Output Total 800 500 Balance -290 50 - Medications Medications: Current Medications Amlodipine Besylate (Norvasc) 10 mg PO DAILY [facility] Last Admin: 06/25/18 09:41 Dose: 10 mg Dextrose (Dextrose 50% Inj) 0 ml IV STAT PRN; Protocol PRN Reason: Hypoglycemia Protocol Dextrose (Glutose 15) 0 gm PO ONCE PRN; Protocol PRN Reason: Hypoglycemia Protocol Docusate Sodium (Colace) 100 mg PO BID [facility] Last Admin: 06/25/18 17:37 Dose: 100 mg Gabapentin (Neurontin) 100 mg PO DAILY [facility] Last Admin: 06/25/18 09:41 Dose: 100 mg Glucagon (Glucagen Diagnostic Kit) 0 mg IM STAT PRN; Protocol PRN Reason: Hypoglycemia Protocol Heparin Sodium (Porcine) (Heparin) 5,000 units SC Q8 [facility] Last Admin: 06/25/18 14:00 Dose: 5,000 units Hydralazine HCl (Apresoline) 50 mg PO Q8H [facility] Last Admin: 06/25/18 12:26 Dose: 50 mg Cefazolin Sodium/Dextrose (Ancef Iv 1 Gm Duplex) 1 gm in 50 mls @ 100 mls/hr IVPB Q8H [facility] PRN Reason: Protocol Last Admin: 06/25/18 17:37 Dose: 100 mls/hr Levothyroxine Sodium (Synthroid) 50 mcg PO DAILY@0630 [facility] Last Admin: 06/25/18 05:44 Dose: 50 mcg Metoprolol Tartrate (Lopressor) 50 mg PO BID [facility] Last Admin: 06/25/18 17:37 Dose: 50 mg Multivitamins (Hexavitamin) 1 tab PO DAILY [facility] Last Admin: 06/25/18 09:41 Dose: 1 tab Pantoprazole Sodium (Protonix Ec Tab) 40 mg PO DAILY [facility] Last Admin: 06/25/18 09:41 Dose: 40 mg Polyethylene Glycol (Miralax) 17 gm PO DAILY [facility] Last Admin: 06/25/18 09:41 Dose: 17 gm Rosuvastatin Calcium (Crestor) 2.5 mg PO HS [facility] Last Admin: 06/24/18 21:41 Dose: 2.5 mg Saccharomyces Boulardii (Florastor) 250 mg PO BID [facility] Last Admin: 06/25/18 17:37 Dose: 250 mg - Labs Labs: 06/25/18 11:16 06/25/18 11:16 PT 12.0 SECONDS (9.7-12.2) 06/20/18 06:59 INR 1.1 06/20/18 06:59 APTT 35 SECONDS (21-34) H 06/20/18 06:59
--- NOTE | 2018-06-25 20:09 | PN ---
DATE: 06/25/2018 LOCATION: Room 553. SUBJECTIVE: This is an 88-year-old female presenting here with symptomatic hypoglycemia and has since then been taken off all oral hypoglycemic therapy and is now being followed closely for metabolic management. Her glycemic levels has remained near optimal and the glucose values have ranged from 96 to 113 mg/dL. LABORATORY DATA: Her latest chemistries showed the BUN of 14, sodium 133, potassium 3.8, chloride 101 CO2 19, glucose 120 and creatinine 1.9. ASSESSMENT AND PLAN: So at this time, we will continue the present medical management and hold off the resumption of any kind of oral hypoglycemic therapy for now. We will continue her Levothyroxine given as 50 mcg once daily as ordered. We will obtain serial chemistries and supplement according as needed. We will follow. Karime Patton MD
[2018-06-25] MEDS: Rosuvastatin Calcium 2.5 mg Tab PO SCH (21:17)
[2018-06-26] MEDS: ceFAZolin IV 1 gm in Dextrose 1 GM/50 ML BAG IVPB SCH ×3 (00:26→17:55)
[2018-06-26] MEDS: Levothyroxine 50 MCG TAB PO SCH (06:04)
[2018-06-26 07:43] LABS: BASO # 0.1 K/uL (0.0-0.2); BASO % 0.7 % (0.0-2.0); EOS # 0.3 K/uL (0.0-0.7); EOS % 2.5 % (0.0-4.0); HEMOGLOBIN 8.2 g/dL (11.0-16.0); LYMPH # 2.1 K/uL (1.0-4.3); LYMPH % 15.8 % (20.0-40.0); MEAN CELL VOLUME 85.6 fL (81.0-99.0); MEAN CORPUSCULAR HEMOGLOBIN 28.1 pg (27.0-31.0); MEAN CORPUSCULAR HGB CONC 32.8 g/dL (33.0-37.0); MEAN PLATELET VOLUME 9.3 fL (7.2-11.7); MONO # 0.8 K/uL (0.0-0.8); MONO % 6.2 % (0.0-10.0); NEUT # 9.7 K/uL (1.8-7.0); NEUT % 74.8 % (50.0-75.0); RBC 2.91 Mil/uL (3.80-5.20); RED CELL DISTRIBUTION WIDTH 15.3 % (11.5-14.5)
[2018-06-26 08:18] LABS: ALB/GLOB RATIO 0.9 (1.0-2.1); ALBUMIN 2.9 g/dL (3.5-5.0); CALCIUM 8.8 mg/dl (8.6-10.4)
[2018-06-26] MEDS: Pantoprazole 40 mg EC Tab PO SCH (09:17)
[2018-06-26] MEDS: Saccharomyces Boulardi 250 mg Cap PO SCH ×2 (09:17→18:06)
[2018-06-26] MEDS: Multiple Vitamins Tab PO SCH (09:17)
[2018-06-26] MEDS: POLYETHYLENE GLYCOL 3350 17 GM/Dose PACKET PO SCH (09:17)
--- NOTE | 2018-06-26 11:33 | CP.PCM.PN ---
Subjective - Date & Time of Evaluation Date of Evaluation: 06/26/18 Time of Evaluation: 11:25 - Subjective Subjective: PGY2 Medicine Note for Dr. Azeb Marinelli Patient seen and examined this morning at bedside. No acute events overnight. Patient states she is feeling well. She reports breathing normal, but is currently wearing a non-rebreather mask. She denies fevers, chills, nausea, vomiting, diarrhea, constipation, chest pain, shortness of breath, abdominal pain, numbness or tingling. Objective - Vital Signs/Intake and Output Vital Signs (last 24 hours): Temp Pulse Resp BP Pulse Ox 98.0 F 85 20 125/75 98 06/26/18 07:00 06/26/18 07:00 06/26/18 07:00 06/26/18 07:00 06/26/18 07:00 Intake and Output: 06/26/18 06/26/18 06:59 18:59 Intake Total 350 Output Total 250 Balance 100 - Medications Medications: Current Medications Amlodipine Besylate (Norvasc) 10 mg PO DAILY [facility] Last Admin: 06/25/18 09:41 Dose: 10 mg Dextrose (Dextrose 50% Inj) 0 ml IV STAT PRN; Protocol PRN Reason: Hypoglycemia Protocol Dextrose (Glutose 15) 0 gm PO ONCE PRN; Protocol PRN Reason: Hypoglycemia Protocol Docusate Sodium (Colace) 100 mg PO BID [facility] Last Admin: 06/26/18 09:16 Dose: 100 mg Gabapentin (Neurontin) 100 mg PO DAILY [facility] Last Admin: 06/26/18 09:17 Dose: 100 mg Glucagon (Glucagen Diagnostic Kit) 0 mg IM STAT PRN; Protocol PRN Reason: Hypoglycemia Protocol Heparin Sodium (Porcine) (Heparin) 5,000 units SC Q8 [facility] Last Admin: 06/26/18 06:04 Dose: 5,000 units Hydralazine HCl (Apresoline) 50 mg PO Q8H [facility] Last Admin: 06/26/18 02:55 Dose: Not Given Cefazolin Sodium/Dextrose (Ancef Iv 1 Gm Duplex) 1 gm in 50 mls @ 100 mls/hr IVPB Q8H [facility]; Protocol Last Admin: 06/26/18 09:16 Dose: 100 mls/hr Levothyroxine Sodium (Synthroid) 50 mcg PO DAILY@0630 [facility] Last Admin: 06/26/18 06:04 Dose: 50 mcg Metoprolol Tartrate (Lopressor) 50 mg PO BID [facility] Last Admin: 06/25/18 17:37 Dose: 50 mg Multivitamins (Hexavitamin) 1 tab PO DAILY [facility] Last Admin: 06/26/18 09:17 Dose: 1 tab Pantoprazole Sodium (Protonix Ec Tab) 40 mg PO DAILY [facility] Last Admin: 06/26/18 09:17 Dose: 40 mg Polyethylene Glycol (Miralax) 17 gm PO DAILY [facility] Last Admin: 06/26/18 09:17 Dose: 17 gm Rosuvastatin Calcium (Crestor) 2.5 mg PO HS [facility] Last Admin: 06/25/18 21:17 Dose: 2.5 mg Saccharomyces Boulardii (Florastor) 250 mg PO BID [facility] Last Admin: 06/26/18 09:17 Dose: 250 mg - Labs Labs: 06/26/18 07:08 06/26/18 07:08 PT 12.0 SECONDS (9.7-12.2) 06/20/18 06:59 INR 1.1 06/20/18 06:59 APTT 35 SECONDS (21-34) H 06/20/18 06:59 - Additional Findings Additional findings: - Constitutional Appears: Non-toxic, Chronically Ill - Head Exam Head Exam: ATRAUMATIC, NORMOCEPHALIC - Eye Exam Eye Exam: Normal appearance - ENT Exam ENT Exam: Mucous Membranes Moist - Neck Exam Neck Exam: absent: Lymphadenopathy - Respiratory Exam Respiratory Exam: Decreased Breath Sounds, Rales, NORMAL BREATHING PATTERN (non- rebreather at 6L). absent: Accessory Muscle Use, Chest Wall Tenderness, Clear to Ausculation Bilateral, Rhonchi, Wheezes - Cardiovascular Exam Cardiovascular Exam: REGULAR RHYTHM, +S1, +S2 - GI/Abdominal Exam GI & Abdominal Exam: Soft. absent: Distended, Firm, Guarding, Rigid, Tenderness - Extremities Exam Extremities Exam: absent: Calf Tenderness, Pedal Edema - Neurological Exam Neurological Exam: Alert, Awake. absent: Oriented x3 - Psychiatric Exam Psychiatric exam: Normal Affect, Normal Mood - Skin Skin Exam: Dry, Warm Assessment and Plan - Assessment and Plan (Free Text) Plan: Left Sided Hydronephrosis --- Dr. Liya Eisenberg consulted * continue abx therapy * monitor urine output * monitor renal function * possible cysto/retrograde pyelogram to follow. Possible conservative management at this point. Further determination may be performed * The overall condition and nature of the patient will effect this decision process. - Renal US: moderate to severe left hydronephrosis noted - CT Scan ab/pelvis: Severe left-sided hydronephrosis with atrophy of the renal parenchyma. Extensive left-sided hydroureter to the level of the distal ureter (series 2, image 66). There is no evidence of renal calculus. Appearance worrisome for stricture or neoplasm. Large left pelvic cystic lesion measures approximately 4.9 x 4.7 cm, likely ovarian in etiology. Pelvic ultrasound suggested. Small to moderate bilateral pleural effusions and compressive consolidations. Pleural Effusion b/l - Pulmonology consulted, Dr. Biggs - f/u recs * recommends lasix (currently on hold 2/ COLLEEN) - Chest CT 06/24/18: * Moderate bilateral pleural effusions, mild interstitial pulmonary edema and presumable mild alveolar edema in the anterior segment of the right upper lobe, most compatible with congestive heart failure. Acute on Chronic Kidney Injury - Cr on admission 2.5, today 2.2 (was 1.6 on 06/23) - Urine osm 324 and serum osmolality 268; urine sodium - 84, Renal US: moderate to severe left hydronephrosis noted - Continue to Monitor Leukocytosis improving afebrile Blood culture (06/25): no growth at 24 hours Urine culture (06/25): no growth Hyponatremia, resolved - Nephrology consult: Dr. De Oliveira --> help appreciated * likely 2/2 to dilution - Sodium: 143 on admission - Urine osm 324 and serum osmolality 268; urine sodium - 84, Renal US: moderate to severe left hydronephrosis noted - Continue to Monitor UTI - ID Consult: Dr. Jennings --> help appreciated - UA (06/20): 3+ Leukocyte esterase; WBC 233 - Blood culture (06/15) negative - Urine culture: Coagulase Negative Staphylococcus * Ceftriaxone 1gm IV daily started by Dr. Azeb Marinelli 06/16/18 - switched to Ancef Q8H 06/21/18 * Sensitive to Tigecycline * Repeat Urine Culture 06/22: no growth * Repeat Urine Culture 06/25: no growth - PICC line ordered - Spoke with patient's son Camron Drummond who stated to receive consent per Daughter in Law: Margo Cunningham #[phone]; inserted 06/19/18 on right arm Hypoglycemia (resolved) - patient was admitted due to hypoglycemia after patient was given insulin at the [facility], however patient is not diabetic - Endocrinology Consult: Dr. Patton --> help appreciated - Hypoglycemia Protocol - hA1c 5.7 - Serum Insulin (06/17/18) 7.8 - Cortisol AM: 4.52 - C peptide - WNL History of HTN - Continue home medications: * Hydralazine 50mg q8h * Metoprolol Tartrate 50mg bid * Norvasc 10mg PO daily History of HLD - Continue home medication: * Crestor 2.5mg HS History of Hypothyroid - Continue Home Medication: Synthroid 50mcg daily - TSH 4.52; Thyroxine 7.79 Prophylaxis - heparin SC q8h - SCDs - Florastor 250mg bid - PT- DEEPAK - Case Management DISPO: Must reach out and discuss with Dr. Eisenberg/Dr. Biggs if they intend to preform any procedures.
--- NOTE | 2018-06-26 13:42 | CP.PCM.PN ---
Subjective - Date & Time of Evaluation Date of Evaluation: 06/26/18 Time of Evaluation: 13:39 - Subjective Subjective: seen and examined on NRB mask since yesterday able to speak in complete sentences c/o feeling cold denies any cp/dizziness/headache/n/v/d/f/c ct chest noted Objective - Vital Signs/Intake and Output Vital Signs (last 24 hours): Temp Pulse Resp BP Pulse Ox 98.0 F 85 20 130/60 98 06/26/18 07:00 06/26/18 07:00 06/26/18 07:00 06/26/18 13:32 06/26/18 07:00 Intake and Output: 06/26/18 06/26/18 06:59 18:59 Intake Total 350 Output Total 250 Balance 100 - Medications Medications: Current Medications Amlodipine Besylate (Norvasc) 10 mg PO DAILY [facility] Last Admin: 06/26/18 10:01 Dose: Not Given Dextrose (Dextrose 50% Inj) 0 ml IV STAT PRN; Protocol PRN Reason: Hypoglycemia Protocol Dextrose (Glutose 15) 0 gm PO ONCE PRN; Protocol PRN Reason: Hypoglycemia Protocol Docusate Sodium (Colace) 100 mg PO BID [facility] Last Admin: 06/26/18 09:16 Dose: 100 mg Furosemide (Lasix) 40 mg IVP STAT STA Last Admin: 06/26/18 13:32 Dose: 40 mg Gabapentin (Neurontin) 100 mg PO DAILY [facility] Last Admin: 06/26/18 09:17 Dose: 100 mg Glucagon (Glucagen Diagnostic Kit) 0 mg IM STAT PRN; Protocol PRN Reason: Hypoglycemia Protocol Heparin Sodium (Porcine) (Heparin) 5,000 units SC Q8 [facility] Last Admin: 06/26/18 13:33 Dose: 5,000 units Hydralazine HCl (Apresoline) 50 mg PO Q8H [facility] Last Admin: 06/26/18 12:01 Dose: Not Given Cefazolin Sodium/Dextrose (Ancef Iv 1 Gm Duplex) 1 gm in 50 mls @ 100 mls/hr IVPB Q8H [facility]; Protocol Last Admin: 06/26/18 09:16 Dose: 100 mls/hr Levothyroxine Sodium (Synthroid) 50 mcg PO DAILY@0630 [facility] Last Admin: 06/26/18 06:04 Dose: 50 mcg Metoprolol Tartrate (Lopressor) 50 mg PO BID [facility] Last Admin: 06/26/18 10:01 Dose: Not Given Multivitamins (Hexavitamin) 1 tab PO DAILY [facility] Last Admin: 06/26/18 09:17 Dose: 1 tab Pantoprazole Sodium (Protonix Ec Tab) 40 mg PO DAILY [facility] Last Admin: 06/26/18 09:17 Dose: 40 mg Polyethylene Glycol (Miralax) 17 gm PO DAILY [facility] Last Admin: 06/26/18 09:17 Dose: 17 gm Rosuvastatin Calcium (Crestor) 2.5 mg PO HS [facility] Last Admin: 06/25/18 21:17 Dose: 2.5 mg Saccharomyces Boulardii (Florastor) 250 mg PO BID [facility] Last Admin: 06/26/18 09:17 Dose: 250 mg - Labs Labs: 06/26/18 07:08 06/26/18 07:08 PT 12.0 SECONDS (9.7-12.2) 06/20/18 06:59 INR 1.1 06/20/18 06:59 APTT 35 SECONDS (21-34) H 06/20/18 06:59 - Constitutional Appears: Non-toxic, No Acute Distress, Chronically Ill - Head Exam Head Exam: NORMAL INSPECTION, NORMOCEPHALIC - Eye Exam Eye Exam: EOMI, Normal appearance - ENT Exam Additional comments: NRB mask - Neck Exam Neck Exam: Normal Inspection - Respiratory Exam Respiratory Exam: Decreased Breath Sounds, Rales, NORMAL BREATHING PATTERN - Cardiovascular Exam Cardiovascular Exam: REGULAR RHYTHM, RRR - GI/Abdominal Exam GI & Abdominal Exam: Distended, Soft, Normal Bowel Sounds - Extremities Exam Extremities Exam: Normal Inspection - Neurological Exam Neurological Exam: Alert, Awake - Psychiatric Exam Psychiatric exam: Normal Affect, Normal Mood - Skin Skin Exam: Dry, Intact Assessment and Plan (1) COLLEEN (acute kidney injury) Status: Acute (2) Acute respiratory insufficiency Status: Acute (3) CKD (chronic kidney disease) stage 3, GFR 30-59 ml/min Status: Acute (4) Dilutional hyponatremia Status: Acute (5) Pleural effusion due to CHF (congestive heart failure) Status: Acute - Assessment and Plan (Free Text) Assessment: recommend iv lasix for chf na stable, fluid restriction advised f/u w/ urology reg Lt sided hydronephrosis
--- NOTE | 2018-06-26 15:32 | CP.PCM.PN ---
Subjective - Date & Time of Evaluation Date of Evaluation: 06/26/18 Time of Evaluation: 11:20 - Subjective Subjective: patient seen and examined Patient remains on 100% nonrebreather mask Dyspnea on minimal exertion Afebrile Objective - Vital Signs/Intake and Output Vital Signs (last 24 hours): Temp Pulse Resp BP Pulse Ox 98.0 F 85 20 130/60 98 06/26/18 07:00 06/26/18 07:00 06/26/18 07:00 06/26/18 13:32 06/26/18 07:00 Intake and Output: 06/26/18 06/26/18 06:59 18:59 Intake Total 350 Output Total 250 500 Balance 100 -500 - Medications Medications: Current Medications Amlodipine Besylate (Norvasc) 10 mg PO DAILY [facility] Last Admin: 06/26/18 10:01 Dose: Not Given Dextrose (Dextrose 50% Inj) 0 ml IV STAT PRN; Protocol PRN Reason: Hypoglycemia Protocol Dextrose (Glutose 15) 0 gm PO ONCE PRN; Protocol PRN Reason: Hypoglycemia Protocol Docusate Sodium (Colace) 100 mg PO BID [facility] Last Admin: 06/26/18 09:16 Dose: 100 mg Furosemide (Lasix) 40 mg IVP STAT STA Last Admin: 06/26/18 13:32 Dose: 40 mg Gabapentin (Neurontin) 100 mg PO DAILY [facility] Last Admin: 06/26/18 09:17 Dose: 100 mg Glucagon (Glucagen Diagnostic Kit) 0 mg IM STAT PRN; Protocol PRN Reason: Hypoglycemia Protocol Heparin Sodium (Porcine) (Heparin) 5,000 units SC Q8 [facility] Last Admin: 06/26/18 13:33 Dose: 5,000 units Hydralazine HCl (Apresoline) 50 mg PO Q8H [facility] Last Admin: 06/26/18 12:01 Dose: Not Given Cefazolin Sodium/Dextrose (Ancef Iv 1 Gm Duplex) 1 gm in 50 mls @ 100 mls/hr IVPB Q8H [facility]; Protocol Last Admin: 06/26/18 09:16 Dose: 100 mls/hr Levothyroxine Sodium (Synthroid) 50 mcg PO DAILY@0630 [facility] Last Admin: 06/26/18 06:04 Dose: 50 mcg Metoprolol Tartrate (Lopressor) 50 mg PO BID [facility] Last Admin: 06/26/18 10:01 Dose: Not Given Multivitamins (Hexavitamin) 1 tab PO DAILY [facility] Last Admin: 06/26/18 09:17 Dose: 1 tab Pantoprazole Sodium (Protonix Ec Tab) 40 mg PO DAILY [facility] Last Admin: 06/26/18 09:17 Dose: 40 mg Polyethylene Glycol (Miralax) 17 gm PO DAILY [facility] Last Admin: 06/26/18 09:17 Dose: 17 gm Rosuvastatin Calcium (Crestor) 2.5 mg PO HS [facility] Last Admin: 06/25/18 21:17 Dose: 2.5 mg Saccharomyces Boulardii (Florastor) 250 mg PO BID [facility] Last Admin: 06/26/18 09:17 Dose: 250 mg - Labs Labs: 06/26/18 07:08 06/26/18 07:08 PT 12.0 SECONDS (9.7-12.2) 06/20/18 06:59 INR 1.1 06/20/18 06:59 APTT 35 SECONDS (21-34) H 06/20/18 06:59 - Head Exam Head Exam: ATRAUMATIC, NORMOCEPHALIC - ENT Exam ENT Exam: Mucous Membranes Moist - Neck Exam Neck Exam: Normal Inspection - Respiratory Exam Respiratory Exam: Decreased Breath Sounds - Cardiovascular Exam Cardiovascular Exam: REGULAR RHYTHM - GI/Abdominal Exam GI & Abdominal Exam: Soft, Normal Bowel Sounds - Extremities Exam Extremities Exam: Pedal Edema Assessment and Plan (1) Acute respiratory insufficiency Assessment & Plan: Secondary to fluid overload/bilateral pleural effusion diuretics Follow-up chest x-ray 50% Ventimask Status: Acute (2) Pleural effusion due to CHF (congestive heart failure) Status: Acute
--- NOTE | 2018-06-26 17:28 | CP.PCM.PN ---
Subjective - Date & Time of Evaluation Date of Evaluation: 06/26/18 Time of Evaluation: 08:15 - Subjective Subjective: clinically same Objective - Vital Signs/Intake and Output Vital Signs (last 24 hours): Temp Pulse Resp BP Pulse Ox 97.8 F 85 20 133/55 L 98 06/26/18 15:00 06/26/18 15:00 06/26/18 15:00 06/26/18 15:00 06/26/18 15:00 Intake and Output: 06/26/18 06/26/18 06:59 18:59 Intake Total 350 Output Total 250 500 Balance 100 -500 - Medications Medications: Current Medications Amlodipine Besylate (Norvasc) 10 mg PO DAILY [facility] Last Admin: 06/26/18 10:01 Dose: Not Given Dextrose (Dextrose 50% Inj) 0 ml IV STAT PRN; Protocol PRN Reason: Hypoglycemia Protocol Dextrose (Glutose 15) 0 gm PO ONCE PRN; Protocol PRN Reason: Hypoglycemia Protocol Docusate Sodium (Colace) 100 mg PO BID [facility] Last Admin: 06/26/18 09:16 Dose: 100 mg Furosemide (Lasix) 40 mg IVP STAT [facility] Last Admin: 06/26/18 13:32 Dose: 40 mg Gabapentin (Neurontin) 100 mg PO DAILY [facility] Last Admin: 06/26/18 09:17 Dose: 100 mg Glucagon (Glucagen Diagnostic Kit) 0 mg IM STAT PRN; Protocol PRN Reason: Hypoglycemia Protocol Heparin Sodium (Porcine) (Heparin) 5,000 units SC Q8 [facility] Last Admin: 06/26/18 13:33 Dose: 5,000 units Hydralazine HCl (Apresoline) 50 mg PO Q8H [facility] Last Admin: 06/26/18 12:01 Dose: Not Given Cefazolin Sodium/Dextrose (Ancef Iv 1 Gm Duplex) 1 gm in 50 mls @ 100 mls/hr IVPB Q8H [facility]; Protocol Last Admin: 06/26/18 09:16 Dose: 100 mls/hr Levothyroxine Sodium (Synthroid) 50 mcg PO DAILY@0630 [facility] Last Admin: 06/26/18 06:04 Dose: 50 mcg Metoprolol Tartrate (Lopressor) 50 mg PO BID [facility] Last Admin: 06/26/18 10:01 Dose: Not Given Multivitamins (Hexavitamin) 1 tab PO DAILY [facility] Last Admin: 06/26/18 09:17 Dose: 1 tab Pantoprazole Sodium (Protonix Ec Tab) 40 mg PO DAILY [facility] Last Admin: 06/26/18 09:17 Dose: 40 mg Polyethylene Glycol (Miralax) 17 gm PO DAILY [facility] Last Admin: 06/26/18 09:17 Dose: 17 gm Rosuvastatin Calcium (Crestor) 2.5 mg PO HS [facility] Last Admin: 06/25/18 21:17 Dose: 2.5 mg Saccharomyces Boulardii (Florastor) 250 mg PO BID [facility] Last Admin: 06/26/18 09:17 Dose: 250 mg - Labs Labs: 06/26/18 07:08 06/26/18 07:08 PT 12.0 SECONDS (9.7-12.2) 06/20/18 06:59 INR 1.1 06/20/18 06:59 APTT 35 SECONDS (21-34) H 06/20/18 06:59 - Constitutional Appears: Well - Head Exam Head Exam: ATRAUMATIC, NORMAL INSPECTION, NORMOCEPHALIC - Eye Exam Eye Exam: EOMI, Normal appearance, PERRL Pupil Exam: NORMAL ACCOMODATION, PERRL - ENT Exam ENT Exam: Mucous Membranes Moist, Normal Exam - Neck Exam Neck Exam: Full ROM, Normal Inspection. absent: Lymphadenopathy - Respiratory Exam Respiratory Exam: Decreased Breath Sounds - Cardiovascular Exam Cardiovascular Exam: REGULAR RHYTHM, +S1, +S2 - GI/Abdominal Exam GI & Abdominal Exam: Soft, Diminished Bowel Sounds - Rectal Exam Rectal Exam: Deferred
[2018-06-26] MEDS: Rosuvastatin Calcium 2.5 mg Tab PO SCH (21:15)
--- NOTE | 2018-06-26 22:34 | PN ---
DATE: 06/26/2018 ENDO FOLLOWUP NOTE LOCATION: Room 553. SUBJECTIVE: This is an 88-year-old female with recent uncontrolled type 2 diabetes, presenting here with symptomatic hypoglycemia and since then improved clinically and metabolically as noted thereof. Her glucose levels are fluctuating but much improved at this time and the latest glucose levels overnight have ranged from 101 to 115 and 118 mg/dL. LABORATORY DATA: Her latest chemistry showed a BUN of 18, sodium 133, potassium 4.0, chloride 101, CO2 of 20, glucose 99, and creatinine 2.2. ASSESSMENT AND PLAN: So at this time, we will continue the fingerstick glucose testing with no resumption of any kind of oral hypoglycemic therapy for now. We will obtain serial chemistries and supplement accordingly as needed. We will follow. Karime Patton MD
[2018-06-27] MEDS: ceFAZolin IV 1 gm in Dextrose 1 GM/50 ML BAG IVPB SCH ×3 (00:55→16:55)
[2018-06-27] MEDS: Levothyroxine 50 MCG TAB PO SCH (05:35)
[2018-06-27 07:11] LABS: BASO # 0.1 K/uL (0.0-0.2); EOS # 0.4 K/uL (0.0-0.7); EOS % 3.5 % (0.0-4.0); HEMOGLOBIN 7.8 g/dL (11.0-16.0); LYMPH # 2.6 K/uL (1.0-4.3); LYMPH % 23.2 % (20.0-40.0); MEAN CELL VOLUME 86.1 fL (81.0-99.0); MEAN CORPUSCULAR HEMOGLOBIN 28.2 pg (27.0-31.0); MEAN CORPUSCULAR HGB CONC 32.8 g/dL (33.0-37.0); MEAN PLATELET VOLUME 9.6 fL (7.2-11.7); MONO # 0.9 K/uL (0.0-0.8); MONO % 8.4 % (0.0-10.0); NEUT # 7.2 K/uL (1.8-7.0); NEUT % 63.9 % (50.0-75.0); NRBC % 0.1 % (0.0-2.0); RBC 2.77 Mil/uL (3.80-5.20); RED CELL DISTRIBUTION WIDTH 15.2 % (11.5-14.5); WHITE BLOOD COUNT 11.3 K/uL (4.8-10.8)
[2018-06-27 07:43] LABS: ALB/GLOB RATIO 0.9 (1.0-2.1); ALBUMIN 2.9 g/dL (3.5-5.0); CALCIUM 8.8 mg/dl (8.6-10.4)
--- NOTE | 2018-06-27 10:21 | CP.PCM.PN ---
Subjective - Date & Time of Evaluation Date of Evaluation: 06/27/18 Time of Evaluation: 10:44 - Subjective Subjective: PGY 3 Medicine Note- Dr. Vicky Marinelli's service Patient seen adn examined in no acute distress. Patient asked for blankets to be covered around her. Patient admits to dry cough. Patient states that she feels okay. Objective - Vital Signs/Intake and Output Vital Signs (last 24 hours): Temp Pulse Resp BP Pulse Ox 98.2 F 90 20 135/62 100 06/27/18 08:06 06/27/18 08:06 06/27/18 08:06 06/27/18 08:06 06/27/18 08:06 Intake and Output: 06/27/18 06/27/18 06:59 18:59 Intake Total 500 Output Total 850 Balance -350 - Medications Medications: Current Medications Amlodipine Besylate (Norvasc) 10 mg PO DAILY [facility] Last Admin: 06/26/18 10:01 Dose: Not Given Dextrose (Dextrose 50% Inj) 0 ml IV STAT PRN; Protocol PRN Reason: Hypoglycemia Protocol Dextrose (Glutose 15) 0 gm PO ONCE PRN; Protocol PRN Reason: Hypoglycemia Protocol Docusate Sodium (Colace) 100 mg PO BID [facility] Last Admin: 06/26/18 18:04 Dose: 100 mg Furosemide (Lasix) 40 mg IVP STAT STA Last Admin: 06/26/18 13:32 Dose: 40 mg Gabapentin (Neurontin) 100 mg PO DAILY [facility] Last Admin: 06/26/18 09:17 Dose: 100 mg Glucagon (Glucagen Diagnostic Kit) 0 mg IM STAT PRN; Protocol PRN Reason: Hypoglycemia Protocol Heparin Sodium (Porcine) (Heparin) 5,000 units SC Q8 [facility] Last Admin: 06/27/18 05:35 Dose: 5,000 units Hydralazine HCl (Apresoline) 50 mg PO Q8H [facility] Last Admin: 06/27/18 03:25 Dose: 50 mg Cefazolin Sodium/Dextrose (Ancef Iv 1 Gm Duplex) 1 gm in 50 mls @ 100 mls/hr IVPB Q8H [facility]; Protocol Last Admin: 06/27/18 00:55 Dose: 100 mls/hr Levothyroxine Sodium (Synthroid) 50 mcg PO DAILY@0630 [facility] Last Admin: 06/27/18 05:35 Dose: 50 mcg Metoprolol Tartrate (Lopressor) 50 mg PO BID [facility] Last Admin: 06/26/18 18:11 Dose: 50 mg Multivitamins (Hexavitamin) 1 tab PO DAILY [facility] Last Admin: 06/26/18 09:17 Dose: 1 tab Pantoprazole Sodium (Protonix Ec Tab) 40 mg PO DAILY [facility] Last Admin: 06/26/18 09:17 Dose: 40 mg Polyethylene Glycol (Miralax) 17 gm PO DAILY [facility] Last Admin: 06/26/18 09:17 Dose: 17 gm Rosuvastatin Calcium (Crestor) 2.5 mg PO HS [facility] Last Admin: 06/26/18 21:15 Dose: 2.5 mg Saccharomyces Boulardii (Florastor) 250 mg PO BID [facility] Last Admin: 06/26/18 18:06 Dose: 250 mg - Labs Labs: 06/27/18 06:31 06/27/18 06:31 PT 12.0 SECONDS (9.7-12.2) 06/20/18 06:59 INR 1.1 06/20/18 06:59 APTT 35 SECONDS (21-34) H 06/20/18 06:59 - Constitutional Appears: Non-toxic, No Acute Distress - Head Exam Head Exam: ATRAUMATIC - Eye Exam Eye Exam: EOMI, Normal appearance Pupil Exam: NORMAL ACCOMODATION - ENT Exam ENT Exam: Mucous Membranes Moist - Neck Exam Neck Exam: Full ROM - Respiratory Exam Respiratory Exam: NORMAL BREATHING PATTERN - Cardiovascular Exam Cardiovascular Exam: +S1, +S2 - GI/Abdominal Exam GI & Abdominal Exam: Soft, Normal Bowel Sounds - Neurological Exam Neurological Exam: Alert, Awake - Psychiatric Exam Psychiatric exam: Normal Affect, Normal Mood - Skin Skin Exam: Normal Color, Warm Assessment and Plan - Assessment and Plan (Free Text) Assessment: Left Sided Hydronephrosis --- Dr. Liya Eisenberg consulted - Will wait until patient is a bit more stable and optimized. Not an urgent procedure. * continue abx therapy * monitor urine output * monitor renal function * possible cysto/retrograde pyelogram to follow. Possible conservative management at this point. Further determination may be performed * The overall condition and nature of the patient will affect this decision process. - Renal US: moderate to severe left hydronephrosis noted - CT Scan ab/pelvis: Severe left-sided hydronephrosis with atrophy of the renal parenchyma. Extensive left-sided hydroureter to the level of the distal ureter (series 2, image 66). There is no evidence of renal calculus. Appearance worrisome for stricture or neoplasm. Large left pelvic cystic lesion measures approximately 4.9 x 4.7 cm, likely ovarian in etiology. Pelvic ultrasound suggested. Small to moderate bilateral pleural effusions and compressive consolidations. Pleural Effusion - Pulmonology consulted, Dr. Biggs - f/u recs * One dose Lasix given. Monitor renal function. - Chest CT 06/24/18: * Moderate bilateral pleural effusions, mild interstitial pulmonary edema and presumable mild alveolar edema in the anterior segment of the right upper lobe, most compatible with congestive heart failure. Anemia - May require transfusion if Hgb drops below 7. - Monitor Hgb Acute on Chronic Kidney Injury - Lasix one dose given. Monitor renal function. - Urine osm 324 and serum osmolality 268; urine sodium - 84, Renal US: moderate to severe left hydronephrosis noted - Continue to Monitor UTI - ID Consult: Dr. Jeninngs --> help appreciated - UA (06/20): 3+ Leukocyte esterase; WBC 233 - Blood culture (06/15) negative - Urine culture: Coagulase Negative Staphylococcus * Ceftriaxone 1gm IV daily started by Dr. Azeb Marinelli 06/16/18 - switched to Ancef Q8H 06/21/18 * Sensitive to Tigecycline * Repeat Urine Culture 06/22: no growth * Repeat Urine Culture 06/25: no growth - PICC line ordered - Spoke with patient's son Camron Drummond who stated to receive consent per Daughter in Law: Margo Cunningham #[phone]; inserted 06/19/18 on right arm HTN - Continue home medications: * Hydralazine 50mg q8h * Metoprolol Tartrate 50mg bid * Norvasc 10mg PO daily [facility] - Continue home medication: * Crestor 2.5mg HS Hypothyroid - Continue Home Medication: Synthroid 50mcg daily - TSH 4.52; Thyroxine 7.79 Hypoglycemia (resolved) - Patient was admitted due to hypoglycemia after patient was given insulin at the [facility], however patient is not diabetic - Endocrinology Consult: Dr. Patton --> help appreciated - Hypoglycemia Protocol - hA1c 5.7 - Serum Insulin (9/16/18) 7.8 - Cortisol AM: 4.52 - C peptide - WNL Prophylaxis - Heparin SC q8h - SCDs - Florastor 250mg bid - PT- DEEPAK - Case Management Discussed with attending. All planning and management per Dr. Vicky Marinelli.
[2018-06-27] MEDS: Saccharomyces Boulardi 250 mg Cap PO SCH ×2 (10:33→17:40)
[2018-06-27] MEDS: Pantoprazole 40 mg EC Tab PO SCH (10:33)
[2018-06-27] MEDS: Multiple Vitamins Tab PO SCH (10:33)
[2018-06-27] MEDS: POLYETHYLENE GLYCOL 3350 17 GM/Dose PACKET PO SCH (10:33)
--- NOTE | 2018-06-27 12:38 | CP.PCM.PN ---
Subjective - Date & Time of Evaluation Date of Evaluation: 06/27/18 Time of Evaluation: 08:00 - Subjective Subjective: more alert afeb nad Objective - Vital Signs/Intake and Output Vital Signs (last 24 hours): Temp Pulse Resp BP Pulse Ox 98.2 F 90 20 122/56 L 100 06/27/18 08:06 06/27/18 08:06 06/27/18 08:06 06/27/18 12:01 06/27/18 08:06 Intake and Output: 06/27/18 06/27/18 06:59 18:59 Intake Total 500 Output Total 850 Balance -350 - Medications Medications: Current Medications Amlodipine Besylate (Norvasc) 10 mg PO DAILY [facility] Last Admin: 06/27/18 10:33 Dose: 10 mg Dextrose (Dextrose 50% Inj) 0 ml IV STAT PRN; Protocol PRN Reason: Hypoglycemia Protocol Dextrose (Glutose 15) 0 gm PO ONCE PRN; Protocol PRN Reason: Hypoglycemia Protocol Docusate Sodium (Colace) 100 mg PO BID [facility] Last Admin: 06/27/18 10:33 Dose: 100 mg Furosemide (Lasix) 40 mg IVP STAT [facility] Last Admin: 06/26/18 13:32 Dose: 40 mg Gabapentin (Neurontin) 100 mg PO DAILY [facility] Last Admin: 06/27/18 10:33 Dose: 100 mg Glucagon (Glucagen Diagnostic Kit) 0 mg IM STAT PRN; Protocol PRN Reason: Hypoglycemia Protocol Heparin Sodium (Porcine) (Heparin) 5,000 units SC Q8 [facility] Last Admin: 06/27/18 05:35 Dose: 5,000 units Hydralazine HCl (Apresoline) 50 mg PO Q8H [facility] Last Admin: 06/27/18 12:02 Dose: Not Given Cefazolin Sodium/Dextrose (Ancef Iv 1 Gm Duplex) 1 gm in 50 mls @ 100 mls/hr IVPB Q8H [facility]; Protocol Last Admin: 06/27/18 09:32 Dose: 100 mls/hr Levothyroxine Sodium (Synthroid) 50 mcg PO DAILY@0630 [facility] Last Admin: 06/27/18 05:35 Dose: 50 mcg Metoprolol Tartrate (Lopressor) 50 mg PO BID [facility] Last Admin: 06/27/18 10:33 Dose: 50 mg Multivitamins (Hexavitamin) 1 tab PO DAILY [facility] Last Admin: 06/27/18 10:33 Dose: 1 tab Pantoprazole Sodium (Protonix Ec Tab) 40 mg PO DAILY [facility] Last Admin: 06/27/18 10:33 Dose: 40 mg Polyethylene Glycol (Miralax) 17 gm PO DAILY [facility] Last Admin: 06/27/18 10:33 Dose: 17 gm Rosuvastatin Calcium (Crestor) 2.5 mg PO HS [facility] Last Admin: 06/26/18 21:15 Dose: 2.5 mg Saccharomyces Boulardii (Florastor) 250 mg PO BID [facility] Last Admin: 06/27/18 10:33 Dose: 250 mg - Labs Labs: 06/27/18 06:31 06/27/18 06:31 PT 12.0 SECONDS (9.7-12.2) 06/20/18 06:59 INR 1.1 06/20/18 06:59 APTT 35 SECONDS (21-34) H 06/20/18 06:59 - Constitutional Appears: Non-toxic, Chronically Ill - Head Exam Head Exam: NORMOCEPHALIC - Eye Exam Eye Exam: PERRL - ENT Exam ENT Exam: Mucous Membranes Dry - Neck Exam Neck Exam: absent: Lymphadenopathy - Respiratory Exam Respiratory Exam: Decreased Breath Sounds - Cardiovascular Exam Cardiovascular Exam: REGULAR RHYTHM - GI/Abdominal Exam GI & Abdominal Exam: Distended, Soft - Rectal Exam Rectal Exam: Deferred - Exam Exam: NORMAL INSPECTION - Extremities Exam Extremities Exam: absent: Pedal Edema - Back Exam Back Exam: absent: CVA tenderness (L), CVA tenderness (R) - Neurological Exam Neurological Exam: Alert, Awake, Oriented x3 - Psychiatric Exam Psychiatric exam: Depressed - Skin Skin Exam: Dry Assessment and Plan (1) Hypoglycemia Status: Acute - Assessment and Plan (Free Text) Assessment: cont rx as per dr Eisenberg
--- NOTE | 2018-06-27 14:36 | CP.PCM.PN ---
Subjective - Date & Time of Evaluation Date of Evaluation: 06/27/18 Time of Evaluation: 14:33 - Subjective Subjective: appears same confused, nonverbal now creat increased to 2.[address] scan shows CHF changes Objective - Vital Signs/Intake and Output Vital Signs (last 24 hours): Temp Pulse Resp BP Pulse Ox 98.2 F 90 20 122/56 L 100 06/27/18 08:06 06/27/18 08:06 06/27/18 08:06 06/27/18 12:01 06/27/18 08:06 Intake and Output: 06/27/18 06/27/18 06:59 18:59 Intake Total 500 Output Total 850 Balance -350 - Medications Medications: Current Medications Amlodipine Besylate (Norvasc) 10 mg PO DAILY [facility] Last Admin: 06/27/18 10:33 Dose: 10 mg Dextrose (Dextrose 50% Inj) 0 ml IV STAT PRN; Protocol PRN Reason: Hypoglycemia Protocol Dextrose (Glutose 15) 0 gm PO ONCE PRN; Protocol PRN Reason: Hypoglycemia Protocol Docusate Sodium (Colace) 100 mg PO BID [facility] Last Admin: 06/27/18 10:33 Dose: 100 mg Furosemide (Lasix) 40 mg IVP STAT STA Last Admin: 06/26/18 13:32 Dose: 40 mg Gabapentin (Neurontin) 100 mg PO DAILY [facility] Last Admin: 06/27/18 10:33 Dose: 100 mg Glucagon (Glucagen Diagnostic Kit) 0 mg IM STAT PRN; Protocol PRN Reason: Hypoglycemia Protocol Heparin Sodium (Porcine) (Heparin) 5,000 units SC Q8 [facility] Last Admin: 06/27/18 05:35 Dose: 5,000 units Hydralazine HCl (Apresoline) 50 mg PO Q8H [facility] Last Admin: 06/27/18 12:02 Dose: Not Given Cefazolin Sodium/Dextrose (Ancef Iv 1 Gm Duplex) 1 gm in 50 mls @ 100 mls/hr IVPB Q8H [facility]; Protocol Last Admin: 06/27/18 09:32 Dose: 100 mls/hr Levothyroxine Sodium (Synthroid) 50 mcg PO DAILY@0630 [facility] Last Admin: 06/27/18 05:35 Dose: 50 mcg Metoprolol Tartrate (Lopressor) 50 mg PO BID [facility] Last Admin: 06/27/18 10:33 Dose: 50 mg Multivitamins (Hexavitamin) 1 tab PO DAILY [facility] Last Admin: 06/27/18 10:33 Dose: 1 tab Pantoprazole Sodium (Protonix Ec Tab) 40 mg PO DAILY [facility] Last Admin: 06/27/18 10:33 Dose: 40 mg Polyethylene Glycol (Miralax) 17 gm PO DAILY [facility] Last Admin: 06/27/18 10:33 Dose: 17 gm Rosuvastatin Calcium (Crestor) 2.5 mg PO HS [facility] Last Admin: 06/26/18 21:15 Dose: 2.5 mg Saccharomyces Boulardii (Florastor) 250 mg PO BID [facility] Last Admin: 06/27/18 10:33 Dose: 250 mg - Labs Labs: 06/27/18 06:31 06/27/18 06:31 PT 12.0 SECONDS (9.7-12.2) 06/20/18 06:59 INR 1.1 06/20/18 06:59 APTT 35 SECONDS (21-34) H 06/20/18 06:59 - Constitutional Appears: No Acute Distress, Confused, Chronically Ill - Head Exam Head Exam: ATRAUMATIC, NORMAL INSPECTION - Eye Exam Eye Exam: EOMI, Normal appearance - Neck Exam Neck Exam: Normal Inspection. absent: Tenderness - Respiratory Exam Respiratory Exam: Rhonchi, NORMAL BREATHING PATTERN - Cardiovascular Exam Cardiovascular Exam: REGULAR RHYTHM, +S1 - GI/Abdominal Exam GI & Abdominal Exam: Soft. absent: Tenderness - Extremities Exam Extremities Exam: Normal Inspection. absent: Tenderness - Neurological Exam Neurological Exam: Altered, CN II-XII Intact - Skin Skin Exam: Dry, Warm Assessment and Plan (1) Hyponatremia Status: Acute (2) COLLEEN (acute kidney injury) Status: Acute (3) CKD (chronic kidney disease) stage 3, GFR 30-59 ml/min Status: Acute (4) Dilutional hyponatremia Status: Acute - Assessment and Plan (Free Text) Plan: add oral lasix follow up chemistries
--- NOTE | 2018-06-27 16:17 | PCM.URO ---
Urology Progress Note - General General: Tolerating Diet - Subjective Abdominal Pain: No Flank Pain: No Nausea: No Vomiting: No Hematuria: No Chest Pain: No Fever & Chills: No - Objective Lab Studies: Reviewed Lab Results Last 24 Hours: Laboratory Results - last 24 hr 06/26/18 06/26/18 06/27/18 16:45 21:01 06:01 WBC RBC Hgb Hct MCV MCH MCHC RDW Plt Count MPV Neut % (Auto) Lymph % (Auto) [place] % (Auto) Eos % (Auto) Baso % (Auto) Neut # (Auto) Lymph # (Auto) [place] # (Auto) Eos # (Auto) Baso # (Auto) Sodium Potassium Chloride Carbon Dioxide Anion Gap BUN Creatinine Est GFR ( Amer) Est GFR (Non-Af Amer) POC Glucose (mg/dL) 92 94 95 Random Glucose Calcium Magnesium Total Bilirubin AST ALT Alkaline Phosphatase NT-Pro-B Natriuret Pep Total Protein Albumin Globulin Albumin/Globulin Ratio 06/27/18 06/27/18 06/27/18 06:31 06:31 11:24 WBC 11.3 H RBC 2.77 L Hgb 7.8 L Hct 23.8 L MCV 86.1 MCH 28.2 MCHC 32.8 L RDW 15.2 H Plt Count 337 MPV 9.6 Neut % (Auto) 63.9 Lymph % (Auto) 23.2 [place] % (Auto) 8.4 Eos % (Auto) 3.5 Baso % (Auto) 1.0 Neut # (Auto) 7.2 H Lymph # (Auto) 2.6 [place] # (Auto) 0.9 H Eos # (Auto) 0.4 Baso # (Auto) 0.1 Sodium 134 Potassium 3.7 Chloride 101 Carbon Dioxide 22 Anion Gap 15 BUN 24 H Creatinine 2.5 H Est GFR ( Amer) 22 Est GFR (Non-Af Amer) 18 POC Glucose (mg/dL) 117 H Random Glucose 97 Calcium 8.8 Magnesium 1.7 Total Bilirubin 0.2 AST 29 ALT 11 Alkaline Phosphatase 85 NT-Pro-B Natriuret Pep 51630 H Total Protein 6.3 Albumin 2.9 L Globulin 3.4 Albumin/Globulin Ratio 0.9 L Intake & Output: Intake & Output 06/26/18 06/27/18 06/27/18 18:59 06:59 18:59 Intake Total 500 340 Output Total 500 850 900 Balance -500 -350 -560 Intake: Intake, IV Amount 50 100 Right Upper arm 50 100 Oral 450 240 Output: Urine 500 850 900 Urine, Voided 500 850 900 Other: # Bowel Movements 0 Vital Signs: Vital Signs - 24 hr 06/27/18 06/27/18 06/27/18 00:00 03:25 08:06 Temperature 98.7 F 98.2 F 98.2 F Pulse Rate 84 86 90 Respiratory 20 18 20 Rate Blood Pressure 125/62 133/61 135/62 O2 Sat by Pulse 100 100 100 Oximetry 06/27/18 06/27/18 12:01 15:00 Temperature 98.7 F Pulse Rate 77 Respiratory 20 Rate Blood Pressure 122/56 L 118/61 O2 Sat by Pulse 99 Oximetry - Physical Exam Abdominal Exam: Soft, Non-Tender, Non-Distended Back: No CVA Tenderness Urine Color: Clear, Yellow (EXTERNAL SUCTION/WICK CATHETER IN PLACE) - Plan Additional Information: IMP: L HYDRONEPHROSIS. L RENAL ATROPHY. INCONTINENCE. p: DISCUSSED RE POSSIBLE FURTHER W/U WITH RESIDENT STAFF. ys - Date & Time of Note Date: 06/27/18 Time: 16:17
--- NOTE | 2018-06-27 16:38 | CP.PCM.PN ---
Subjective - Date & Time of Evaluation Date of Evaluation: 06/27/18 Time of Evaluation: 11:00 - Subjective Subjective: patient seen and examined Breathing much better On nasal cannula Afebrile Patient is awake and responsive Objective - Vital Signs/Intake and Output Vital Signs (last 24 hours): Temp Pulse Resp BP Pulse Ox 98.7 F 77 20 118/61 99 06/27/18 15:00 06/27/18 15:00 06/27/18 15:00 06/27/18 15:00 06/27/18 15:00 Intake and Output: 06/27/18 06/27/18 06:59 18:59 Intake Total 500 340 Output Total 850 900 Balance -350 -560 - Medications Medications: Current Medications Amlodipine Besylate (Norvasc) 10 mg PO DAILY [facility] Last Admin: 06/27/18 10:33 Dose: 10 mg Dextrose (Dextrose 50% Inj) 0 ml IV STAT PRN; Protocol PRN Reason: Hypoglycemia Protocol Dextrose (Glutose 15) 0 gm PO ONCE PRN; Protocol PRN Reason: Hypoglycemia Protocol Docusate Sodium (Colace) 100 mg PO BID [facility] Last Admin: 06/27/18 10:33 Dose: 100 mg Furosemide (Lasix) 40 mg IVP STAT [facility] Last Admin: 06/26/18 13:32 Dose: 40 mg Furosemide (Lasix) 40 mg PO DAILY [facility] Gabapentin (Neurontin) 100 mg PO DAILY [facility] Last Admin: 06/27/18 10:33 Dose: 100 mg Glucagon (Glucagen Diagnostic Kit) 0 mg IM STAT PRN; Protocol PRN Reason: Hypoglycemia Protocol Heparin Sodium (Porcine) (Heparin) 5,000 units SC Q8 [facility] Last Admin: 06/27/18 14:08 Dose: 5,000 units Hydralazine HCl (Apresoline) 50 mg PO Q8H [facility] Last Admin: 06/27/18 12:02 Dose: Not Given Cefazolin Sodium/Dextrose (Ancef Iv 1 Gm Duplex) 1 gm in 50 mls @ 100 mls/hr IVPB Q8H [facility]; Protocol Last Admin: 06/27/18 09:32 Dose: 100 mls/hr Levothyroxine Sodium (Synthroid) 50 mcg PO DAILY@0630 [facility] Last Admin: 06/27/18 05:35 Dose: 50 mcg Metoprolol Tartrate (Lopressor) 50 mg PO BID [facility] Last Admin: 06/27/18 10:33 Dose: 50 mg Multivitamins (Hexavitamin) 1 tab PO DAILY [facility] Last Admin: 06/27/18 10:33 Dose: 1 tab Pantoprazole Sodium (Protonix Ec Tab) 40 mg PO DAILY [facility] Last Admin: 06/27/18 10:33 Dose: 40 mg Polyethylene Glycol (Miralax) 17 gm PO DAILY [facility] Last Admin: 06/27/18 10:33 Dose: 17 gm Rosuvastatin Calcium (Crestor) 2.5 mg PO HS [facility] Last Admin: 06/26/18 21:15 Dose: 2.5 mg Saccharomyces Boulardii (Florastor) 250 mg PO BID [facility] Last Admin: 06/27/18 10:33 Dose: 250 mg - Labs Labs: 06/27/18 06:31 06/27/18 06:31 PT 12.0 SECONDS (9.7-12.2) 06/20/18 06:59 INR 1.1 06/20/18 06:59 APTT 35 SECONDS (21-34) H 06/20/18 06:59 - Head Exam Head Exam: ATRAUMATIC, NORMOCEPHALIC - ENT Exam ENT Exam: Mucous Membranes Moist - Neck Exam Neck Exam: Normal Inspection - Respiratory Exam Respiratory Exam: Decreased Breath Sounds - Cardiovascular Exam Cardiovascular Exam: REGULAR RHYTHM - GI/Abdominal Exam GI & Abdominal Exam: Soft, Normal Bowel Sounds Assessment and Plan (1) Acute respiratory insufficiency Assessment & Plan: clinically improving Continue Lasix Follow-up chest x-ray Status: Acute (2) Pleural effusion due to CHF (congestive heart failure) Status: Acute
--- NOTE | 2018-06-27 18:27 | CP.PCM.PN ---
Subjective - Date & Time of Evaluation Date of Evaluation: 06/27/18 Time of Evaluation: 08:15 - Subjective Subjective: clinically same Objective - Vital Signs/Intake and Output Vital Signs (last 24 hours): Temp Pulse Resp BP Pulse Ox 98.7 F 77 20 118/61 99 06/27/18 15:00 06/27/18 15:00 06/27/18 15:00 06/27/18 15:00 06/27/18 15:00 Intake and Output: 06/27/18 06/27/18 06:59 18:59 Intake Total 500 340 Output Total 850 900 Balance -350 -560 - Medications Medications: Current Medications Amlodipine Besylate (Norvasc) 10 mg PO DAILY [facility] Last Admin: 06/27/18 10:33 Dose: 10 mg Dextrose (Dextrose 50% Inj) 0 ml IV STAT PRN; Protocol PRN Reason: Hypoglycemia Protocol Dextrose (Glutose 15) 0 gm PO ONCE PRN; Protocol PRN Reason: Hypoglycemia Protocol Docusate Sodium (Colace) 100 mg PO BID [facility] Last Admin: 06/27/18 17:40 Dose: 100 mg Furosemide (Lasix) 40 mg IVP STAT [facility] Last Admin: 06/26/18 13:32 Dose: 40 mg Furosemide (Lasix) 40 mg PO DAILY [facility] Gabapentin (Neurontin) 100 mg PO DAILY [facility] Last Admin: 06/27/18 10:33 Dose: 100 mg Glucagon (Glucagen Diagnostic Kit) 0 mg IM STAT PRN; Protocol PRN Reason: Hypoglycemia Protocol Heparin Sodium (Porcine) (Heparin) 5,000 units SC Q8 [facility] Last Admin: 06/27/18 14:08 Dose: 5,000 units Hydralazine HCl (Apresoline) 50 mg PO Q8H [facility] Last Admin: 06/27/18 12:02 Dose: Not Given Cefazolin Sodium/Dextrose (Ancef Iv 1 Gm Duplex) 1 gm in 50 mls @ 100 mls/hr IVPB Q8H [facility]; Protocol Last Admin: 06/27/18 16:55 Dose: 100 mls/hr Levothyroxine Sodium (Synthroid) 50 mcg PO DAILY@0630 [facility] Last Admin: 06/27/18 05:35 Dose: 50 mcg Metoprolol Tartrate (Lopressor) 50 mg PO BID [facility] Last Admin: 06/27/18 17:40 Dose: 50 mg Multivitamins (Hexavitamin) 1 tab PO DAILY [facility] Last Admin: 06/27/18 10:33 Dose: 1 tab Pantoprazole Sodium (Protonix Ec Tab) 40 mg PO DAILY [facility] Last Admin: 06/27/18 10:33 Dose: 40 mg Polyethylene Glycol (Miralax) 17 gm PO DAILY [facility] Last Admin: 06/27/18 10:33 Dose: 17 gm Rosuvastatin Calcium (Crestor) 2.5 mg PO HS [facility] Last Admin: 06/26/18 21:15 Dose: 2.5 mg Saccharomyces Boulardii (Florastor) 250 mg PO BID [facility] Last Admin: 06/27/18 17:40 Dose: 250 mg - Labs Labs: 06/27/18 06:31 06/27/18 06:31 PT 12.0 SECONDS (9.7-12.2) 06/20/18 06:59 INR 1.1 06/20/18 06:59 APTT 35 SECONDS (21-34) H 06/20/18 06:59
--- NOTE | 2018-06-27 20:26 | PN ---
DATE: 06/27/2018 ENDO FOLLOWUP NOTE LOCATION: In room 553. SUBJECTIVE: This is an 88-year-old female, presenting here with symptomatic hypoglycemia and has since then improved clinically and metabolically as noted thereof. Her oral intake remains variable as per the nursing staff. LABORATORY DATA: Her glucose levels overnight have ranged from 95 to 117 mg/dL. Her latest chemistries showed a BUN of 24, sodium 134, potassium 3.7, chloride 101, CO2 of 22, glucose 97, and creatinine 2.5. ASSESSMENT AND PLAN: So at this time, we will continue the low-dose correction scale using regular insulin as given, but hold off the resumption of any kind of oral hypoglycemic therapy nor basal insulin therapy thereof. We will obtain serial chemistries and supplement accordingly as needed. We will follow. Karime Patton MD
[2018-06-27] MEDS: Rosuvastatin Calcium 2.5 mg Tab PO SCH (21:11)
[2018-06-28] MEDS: ceFAZolin IV 1 gm in Dextrose 1 GM/50 ML BAG IVPB SCH ×3 (01:12→17:51)
[2018-06-28] MEDS: Levothyroxine 50 MCG TAB PO SCH (05:47)
[2018-06-28 07:22] LABS: BASO # 0.1 K/uL (0.0-0.2); BASO % 1.3 % (0.0-2.0); EOS # 0.5 K/uL (0.0-0.7); EOS % 4.8 % (0.0-4.0); HEMOGLOBIN 8.2 g/dL (11.0-16.0); LYMPH # 3.2 K/uL (1.0-4.3); LYMPH % 29.3 % (20.0-40.0); MEAN CELL VOLUME 84.7 fL (81.0-99.0); MEAN CORPUSCULAR HEMOGLOBIN 28.4 pg (27.0-31.0); MEAN CORPUSCULAR HGB CONC 33.5 g/dL (33.0-37.0); MEAN PLATELET VOLUME 9.3 fL (7.2-11.7); MONO # 0.7 K/uL (0.0-0.8); MONO % 6.6 % (0.0-10.0); NEUT # 6.3 K/uL (1.8-7.0); NRBC % 0.1 % (0.0-2.0); RBC 2.9 Mil/uL (3.80-5.20); RED CELL DISTRIBUTION WIDTH 15.2 % (11.5-14.5); WHITE BLOOD COUNT 10.9 K/uL (4.8-10.8)
[2018-06-28 07:30] LABS: ALBUMIN 3.1 g/dL (3.5-5.0); CALCIUM 8.8 mg/dl (8.6-10.4)
[2018-06-28] MEDS: Saccharomyces Boulardi 250 mg Cap PO SCH ×2 (09:04→17:47)
[2018-06-28] MEDS: Multiple Vitamins Tab PO SCH (09:04)
[2018-06-28] MEDS: Pantoprazole 40 mg EC Tab PO SCH (09:04)
[2018-06-28] MEDS: POLYETHYLENE GLYCOL 3350 17 GM/Dose PACKET PO SCH (09:05)
--- NOTE | 2018-06-28 10:24 | CP.PCM.PN ---
Subjective - Date & Time of Evaluation Date of Evaluation: 06/28/18 Time of Evaluation: 10:22 - Subjective Subjective: Alert, more responsive Less dyspneic Good response to oral lasix- 1700ml urine K low- needs repletion Objective - Vital Signs/Intake and Output Vital Signs (last 24 hours): Temp Pulse Resp BP Pulse Ox 97.8 F 86 20 136/60 98 06/28/18 08:16 06/28/18 09:04 06/28/18 08:16 06/28/18 09:08 06/28/18 08:16 Intake and Output: 06/28/18 06/28/18 06:59 18:59 Output Total 1300 Balance -1300 - Medications Medications: Current Medications Amlodipine Besylate (Norvasc) 10 mg PO DAILY [facility] Last Admin: 06/28/18 09:05 Dose: 10 mg Dextrose (Dextrose 50% Inj) 0 ml IV STAT PRN; Protocol PRN Reason: Hypoglycemia Protocol Dextrose (Glutose 15) 0 gm PO ONCE PRN; Protocol PRN Reason: Hypoglycemia Protocol Docusate Sodium (Colace) 100 mg PO BID [facility] Last Admin: 06/28/18 09:04 Dose: 100 mg Furosemide (Lasix) 40 mg IVP STAT STA Last Admin: 06/26/18 13:32 Dose: 40 mg Furosemide (Lasix) 40 mg PO DAILY [facility] Last Admin: 06/28/18 09:08 Dose: 40 mg Gabapentin (Neurontin) 100 mg PO DAILY [facility] Last Admin: 06/28/18 09:04 Dose: 100 mg Glucagon (Glucagen Diagnostic Kit) 0 mg IM STAT PRN; Protocol PRN Reason: Hypoglycemia Protocol Heparin Sodium (Porcine) (Heparin) 5,000 units SC Q8 [facility] Last Admin: 06/28/18 05:47 Dose: 5,000 units Hydralazine HCl (Apresoline) 50 mg PO Q8H [facility] Last Admin: 06/28/18 03:30 Dose: 50 mg Cefazolin Sodium/Dextrose (Ancef Iv 1 Gm Duplex) 1 gm in 50 mls @ 100 mls/hr IVPB Q8H [facility]; Protocol Last Admin: 06/28/18 08:47 Dose: 100 mls/hr Levothyroxine Sodium (Synthroid) 50 mcg PO DAILY@0630 [facility] Last Admin: 06/28/18 05:47 Dose: 50 mcg Metoprolol Tartrate (Lopressor) 50 mg PO BID [facility] Last Admin: 06/28/18 09:05 Dose: 50 mg Multivitamins (Hexavitamin) 1 tab PO DAILY [facility] Last Admin: 06/28/18 09:04 Dose: 1 tab Pantoprazole Sodium (Protonix Ec Tab) 40 mg PO DAILY [facility] Last Admin: 06/28/18 09:04 Dose: 40 mg Polyethylene Glycol (Miralax) 17 gm PO DAILY [facility] Last Admin: 06/28/18 09:05 Dose: 17 gm Rosuvastatin Calcium (Crestor) 2.5 mg PO HS [facility] Last Admin: 06/27/18 21:11 Dose: 2.5 mg Saccharomyces Boulardii (Florastor) 250 mg PO BID [facility] Last Admin: 06/28/18 09:04 Dose: 250 mg - Labs Labs: 06/28/18 07:06 06/28/18 07:06 PT 12.0 SECONDS (9.7-12.2) 06/20/18 06:59 INR 1.1 06/20/18 06:59 APTT 35 SECONDS (21-34) H 06/20/18 06:59 - Constitutional Appears: No Acute Distress, Chronically Ill - Head Exam Head Exam: ATRAUMATIC, NORMAL INSPECTION - Eye Exam Eye Exam: EOMI, Normal appearance - Respiratory Exam Respiratory Exam: Wheezes, NORMAL BREATHING PATTERN - Cardiovascular Exam Cardiovascular Exam: REGULAR RHYTHM, +S1 - GI/Abdominal Exam GI & Abdominal Exam: Soft. absent: Tenderness - Extremities Exam Extremities Exam: Normal Inspection. absent: Tenderness - Neurological Exam Neurological Exam: Alert, CN II-XII Intact - Skin Skin Exam: Dry, Warm Assessment and Plan (1) Hyponatremia Status: Acute (2) COLLEEN (acute kidney injury) Status: Acute (3) CKD (chronic kidney disease) stage 3, GFR 30-59 ml/min Status: Acute (4) Dilutional hyponatremia Status: Acute - Assessment and Plan (Free Text) Plan: continue lasix Replete K
[2018-06-28] MEDS ORDERED: Potassium Chloride 20 mEq ER Tab PO SCH (10:30)
--- NOTE | 2018-06-28 14:00 | CP.PCM.PN ---
Subjective - Date & Time of Evaluation Date of Evaluation: 06/28/18 Time of Evaluation: 13:59 Objective - Vital Signs/Intake and Output Vital Signs (last 24 hours): Temp Pulse Resp BP Pulse Ox 97.8 F 74 20 122/55 L 98 06/28/18 08:16 06/28/18 11:22 06/28/18 08:16 06/28/18 11:22 06/28/18 08:16 Intake and Output: 06/28/18 06/28/18 06:59 18:59 Output Total 1300 Balance -1300 - Medications Medications: Current Medications Amlodipine Besylate (Norvasc) 10 mg PO DAILY [facility] Last Admin: 06/28/18 09:05 Dose: 10 mg Dextrose (Dextrose 50% Inj) 0 ml IV STAT PRN; Protocol PRN Reason: Hypoglycemia Protocol Dextrose (Glutose 15) 0 gm PO ONCE PRN; Protocol PRN Reason: Hypoglycemia Protocol Docusate Sodium (Colace) 100 mg PO BID [facility] Last Admin: 06/28/18 09:04 Dose: 100 mg Furosemide (Lasix) 40 mg IVP STAT STA Last Admin: 06/26/18 13:32 Dose: 40 mg Furosemide (Lasix) 40 mg PO DAILY [facility] Last Admin: 06/28/18 09:08 Dose: 40 mg Gabapentin (Neurontin) 100 mg PO DAILY [facility] Last Admin: 06/28/18 09:04 Dose: 100 mg Glucagon (Glucagen Diagnostic Kit) 0 mg IM STAT PRN; Protocol PRN Reason: Hypoglycemia Protocol Heparin Sodium (Porcine) (Heparin) 5,000 units SC Q8 [facility] Last Admin: 06/28/18 13:25 Dose: 5,000 units Hydralazine HCl (Apresoline) 50 mg PO Q8H [facility] Last Admin: 06/28/18 11:23 Dose: 50 mg Cefazolin Sodium/Dextrose (Ancef Iv 1 Gm Duplex) 1 gm in 50 mls @ 100 mls/hr IVPB Q8H [facility]; Protocol Last Admin: 06/28/18 08:47 Dose: 100 mls/hr Levothyroxine Sodium (Synthroid) 50 mcg PO DAILY@0630 [facility] Last Admin: 06/28/18 05:47 Dose: 50 mcg Metoprolol Tartrate (Lopressor) 50 mg PO BID [facility] Last Admin: 06/28/18 09:05 Dose: 50 mg Multivitamins (Hexavitamin) 1 tab PO DAILY [facility] Last Admin: 06/28/18 09:04 Dose: 1 tab Pantoprazole Sodium (Protonix Ec Tab) 40 mg PO DAILY [facility] Last Admin: 06/28/18 09:04 Dose: 40 mg Polyethylene Glycol (Miralax) 17 gm PO DAILY [facility] Last Admin: 06/28/18 09:05 Dose: 17 gm Potassium Chloride (K-Dur 20 Meq Er Tab) 20 meq PO DAILY [facility] Last Admin: 06/28/18 11:23 Dose: 20 meq Rosuvastatin Calcium (Crestor) 2.5 mg PO HS [facility] Last Admin: 06/27/18 21:11 Dose: 2.5 mg Saccharomyces Boulardii (Florastor) 250 mg PO BID [facility] Last Admin: 06/28/18 09:04 Dose: 250 mg - Labs Labs: 06/28/18 07:06 06/28/18 07:06 PT 12.0 SECONDS (9.7-12.2) 06/20/18 06:59 INR 1.1 06/20/18 06:59 APTT 35 SECONDS (21-34) H 06/20/18 06:59 Assessment and Plan - Assessment and Plan (Free Text) Assessment: PLACE UNDER THE SERVICE OF DR Azeb MUHAMMAD AT [facility]---CALL FOR ADMITTING ORDER CONTINUE HOME MEDICATION NEW PRESCRIPTION GIVEN LASIX AND KDUR PO DAILY [facility] TOLER[facility] CALL DR Azeb MUHAMMAD FOR FURTHER ORDER MAKE ARRANGE TO FOLLOW UP WITH DR RIOS AND DR BRIGHT IN 1-2 WEEK ---CALL FOR APPOINTMENT
--- NOTE | 2018-06-28 15:21 | CP.PCM.PN ---
Subjective - Date & Time of Evaluation Date of Evaluation: 06/28/18 Time of Evaluation: 09:00 - Subjective Subjective: Patient seen and examined Breathing and cough much improved Lying comfortably in no distress Saturating well on nasal cannula Objective - Vital Signs/Intake and Output Vital Signs (last 24 hours): Temp Pulse Resp BP Pulse Ox 97.8 F 74 20 122/55 L 98 06/28/18 08:16 06/28/18 11:22 06/28/18 08:16 06/28/18 11:22 06/28/18 08:16 Intake and Output: 06/28/18 06/28/18 06:59 18:59 Intake Total 300 Output Total 1300 600 Balance -1300 -300 - Medications Medications: Current Medications Amlodipine Besylate (Norvasc) 10 mg PO DAILY [facility] Last Admin: 06/28/18 09:05 Dose: 10 mg Dextrose (Dextrose 50% Inj) 0 ml IV STAT PRN; Protocol PRN Reason: Hypoglycemia Protocol Dextrose (Glutose 15) 0 gm PO ONCE PRN; Protocol PRN Reason: Hypoglycemia Protocol Docusate Sodium (Colace) 100 mg PO BID [facility] Last Admin: 06/28/18 09:04 Dose: 100 mg Furosemide (Lasix) 40 mg IVP STAT STA Last Admin: 06/26/18 13:32 Dose: 40 mg Furosemide (Lasix) 40 mg PO DAILY [facility] Last Admin: 06/28/18 09:08 Dose: 40 mg Gabapentin (Neurontin) 100 mg PO DAILY [facility] Last Admin: 06/28/18 09:04 Dose: 100 mg Glucagon (Glucagen Diagnostic Kit) 0 mg IM STAT PRN; Protocol PRN Reason: Hypoglycemia Protocol Heparin Sodium (Porcine) (Heparin) 5,000 units SC Q8 [facility] Last Admin: 06/28/18 13:25 Dose: 5,000 units Hydralazine HCl (Apresoline) 50 mg PO Q8H [facility] Last Admin: 06/28/18 11:23 Dose: 50 mg Cefazolin Sodium/Dextrose (Ancef Iv 1 Gm Duplex) 1 gm in 50 mls @ 100 mls/hr IVPB Q8H [facility]; Protocol Last Admin: 06/28/18 08:47 Dose: 100 mls/hr Levothyroxine Sodium (Synthroid) 50 mcg PO DAILY@0630 [facility] Last Admin: 06/28/18 05:47 Dose: 50 mcg Metoprolol Tartrate (Lopressor) 50 mg PO BID [facility] Last Admin: 06/28/18 09:05 Dose: 50 mg Multivitamins (Hexavitamin) 1 tab PO DAILY [facility] Last Admin: 06/28/18 09:04 Dose: 1 tab Pantoprazole Sodium (Protonix Ec Tab) 40 mg PO DAILY [facility] Last Admin: 06/28/18 09:04 Dose: 40 mg Polyethylene Glycol (Miralax) 17 gm PO DAILY [facility] Last Admin: 06/28/18 09:05 Dose: 17 gm Potassium Chloride (K-Dur 20 Meq Er Tab) 20 meq PO DAILY [facility] Last Admin: 06/28/18 11:23 Dose: 20 meq Rosuvastatin Calcium (Crestor) 2.5 mg PO HS [facility] Last Admin: 06/27/18 21:11 Dose: 2.5 mg Saccharomyces Boulardii (Florastor) 250 mg PO BID [facility] Last Admin: 06/28/18 09:04 Dose: 250 mg - Labs Labs: 06/28/18 07:06 06/28/18 07:06 PT 12.0 SECONDS (9.7-12.2) 06/20/18 06:59 INR 1.1 06/20/18 06:59 APTT 35 SECONDS (21-34) H 06/20/18 06:59 - Head Exam Head Exam: ATRAUMATIC, NORMOCEPHALIC - ENT Exam ENT Exam: Mucous Membranes Moist - Neck Exam Neck Exam: Normal Inspection Assessment and Plan (1) Acute respiratory insufficiency Assessment & Plan: stable from pulmonary standpoint Status: Acute (2) Pleural effusion due to CHF (congestive heart failure) Status: Acute
--- NOTE | 2018-06-28 16:14 | CP.PCM.PN ---
Subjective - Date & Time of Evaluation Date of Evaluation: 06/28/18 Time of Evaluation: 08:30 - Subjective Subjective: clinically same Objective - Vital Signs/Intake and Output Vital Signs (last 24 hours): Temp Pulse Resp BP Pulse Ox 97.8 F 74 20 122/55 L 98 06/28/18 08:16 06/28/18 11:22 06/28/18 08:16 06/28/18 11:22 06/28/18 08:16 Intake and Output: 06/28/18 06/28/18 06:59 18:59 Intake Total 300 Output Total 1300 600 Balance -1300 -300 - Medications Medications: Current Medications Amlodipine Besylate (Norvasc) 10 mg PO DAILY [facility] Last Admin: 06/28/18 09:05 Dose: 10 mg Dextrose (Dextrose 50% Inj) 0 ml IV STAT PRN; Protocol PRN Reason: Hypoglycemia Protocol Dextrose (Glutose 15) 0 gm PO ONCE PRN; Protocol PRN Reason: Hypoglycemia Protocol Docusate Sodium (Colace) 100 mg PO BID [facility] Last Admin: 06/28/18 09:04 Dose: 100 mg Furosemide (Lasix) 40 mg IVP STAT [facility] Last Admin: 06/26/18 13:32 Dose: 40 mg Furosemide (Lasix) 40 mg PO DAILY [facility] Last Admin: 06/28/18 09:08 Dose: 40 mg Gabapentin (Neurontin) 100 mg PO DAILY [facility] Last Admin: 06/28/18 09:04 Dose: 100 mg Glucagon (Glucagen Diagnostic Kit) 0 mg IM STAT PRN; Protocol PRN Reason: Hypoglycemia Protocol Heparin Sodium (Porcine) (Heparin) 5,000 units SC Q8 [facility] Last Admin: 06/28/18 13:25 Dose: 5,000 units Hydralazine HCl (Apresoline) 50 mg PO Q8H [facility] Last Admin: 06/28/18 11:23 Dose: 50 mg Cefazolin Sodium/Dextrose (Ancef Iv 1 Gm Duplex) 1 gm in 50 mls @ 100 mls/hr IVPB Q8H [facility]; Protocol Last Admin: 06/28/18 08:47 Dose: 100 mls/hr Levothyroxine Sodium (Synthroid) 50 mcg PO DAILY@0630 [facility] Last Admin: 06/28/18 05:47 Dose: 50 mcg Metoprolol Tartrate (Lopressor) 50 mg PO BID [facility] Last Admin: 06/28/18 09:05 Dose: 50 mg Multivitamins (Hexavitamin) 1 tab PO DAILY [facility] Last Admin: 06/28/18 09:04 Dose: 1 tab Pantoprazole Sodium (Protonix Ec Tab) 40 mg PO DAILY [facility] Last Admin: 06/28/18 09:04 Dose: 40 mg Polyethylene Glycol (Miralax) 17 gm PO DAILY [facility] Last Admin: 06/28/18 09:05 Dose: 17 gm Potassium Chloride (K-Dur 20 Meq Er Tab) 20 meq PO DAILY [facility] Last Admin: 06/28/18 11:23 Dose: 20 meq Rosuvastatin Calcium (Crestor) 2.5 mg PO HS [facility] Last Admin: 06/27/18 21:11 Dose: 2.5 mg Saccharomyces Boulardii (Florastor) 250 mg PO BID [facility] Last Admin: 06/28/18 09:04 Dose: 250 mg - Labs Labs: 06/28/18 07:06 06/28/18 07:06 PT 12.0 SECONDS (9.7-12.2) 06/20/18 06:59 INR 1.1 06/20/18 06:59 APTT 35 SECONDS (21-34) H 06/20/18 06:59 - Constitutional Appears: Well - Head Exam Head Exam: ATRAUMATIC, NORMAL INSPECTION, NORMOCEPHALIC - Eye Exam Eye Exam: EOMI, Normal appearance, PERRL Pupil Exam: NORMAL ACCOMODATION, PERRL - ENT Exam ENT Exam: Mucous Membranes Moist, Normal Exam - Neck Exam Neck Exam: Full ROM, Normal Inspection. absent: Lymphadenopathy - Respiratory Exam Respiratory Exam: Decreased Breath Sounds - Cardiovascular Exam Cardiovascular Exam: REGULAR RHYTHM, +S1, +S2 - GI/Abdominal Exam GI & Abdominal Exam: Soft, Diminished Bowel Sounds - Rectal Exam Rectal Exam: Deferred
[2018-06-28 19:51] VITALS: BP 110/80; PULSE 69; RESP 18; TEMP 97.5; O2SAT 97
--- NOTE | 2018-06-28 19:58 | PN ---
DATE: 06/28/2018 ENDO FOLLOWUP NOTE LOCATION: In room 553. SUBJECTIVE: This is an 88-year-old female with known history of type 2 diabetes and hypertension, presenting here with symptomatic hypoglycemia and has since then improved clinically and metabolically as noted thereof. Her glucose values overnight have ranged from 92 to 105 mg/dL. LABORATORY DATA: Her latest chemistry showed a BUN of 28, sodium 134, potassium 3.4, chloride 100, CO2 of 23, glucose 92, and creatinine 2.7. ASSESSMENT AND PLAN: So at this time, we will continue the low-dose correction scale using regular insulin as ordered, but hold off the resumption of any kind of oral hypoglycemic therapies for now. We will obtain serial chemistries and supplement accordingly as needed. We will follow. Karime Patton MD
== END 2018-06-28 19:52 | disposition home or self-care (01) | DRG 637 ==
LOC: C.ER 11:38 → C.9E 15:28 → C.5S 18:15 → C.ER 06-19 11:38 → OBSVTOIN 06-19 12:54 → C.9E 06-19 15:28 → C.5S 06-19 18:15
PROVIDERS: ADMIT Internal Medicine Nephrology; ATTEND Internal Medicine Nephrology
PROC: 05HM33Z Insertion of Infusion Device into Right Internal Jugular Vein, Percutaneous Approach (ICD-10-PCS; 2018-06-15)
PROC: 02HV33Z Insertion of Infusion Device into Superior Vena Cava, Percutaneous Approach (ICD-10-PCS; principal; 2018-06-19)
DX: E11.641 Type 2 diabetes mellitus with hypoglycemia with coma (principal); G93.41 Metabolic encephalopathy; N39.0 Urinary tract infection, site not specified; E87.1 Hypo-osmolality and hyponatremia; N17.9 Acute kidney failure, unspecified; I13.0 Hypertensive heart and chronic kidney disease with heart failure and stage 1 through stage 4 chronic kidney disease, or unspecified chronic kidney disease; N13.6 Pyonephrosis; Z79.4 Long term (current) use of insulin; K21.9 Gastro-esophageal reflux disease without esophagitis; F41.9 Anxiety disorder, unspecified; E03.9 Hypothyroidism, unspecified; G31.9 Degenerative disease of nervous system, unspecified; F02.80 Dementia in other diseases classified elsewhere, unspecified severity, without behavioral disturbance, psychotic disturbance, mood disturbance, and anxiety; E11.22 Type 2 diabetes mellitus with diabetic chronic kidney disease; N18.9 Chronic kidney disease, unspecified; I50.9 Heart failure, unspecified; R32 Unspecified urinary incontinence